=== PATIENT | male | born 1960 | race Caucasian/White ===

== ENCOUNTER 2021-11-03 09:44 | Outpatient (REF) | payer MEDICARE, MEDICAID, SELFPAY ==
[2021-11-03 10:06] LABS: MANUAL DIFF FLAG NO
[2021-11-03 10:22] LABS: Basophils Percent Auto 0.3 % (0-2); Eos%MD 3.7 %; Eosinophils Absolute Auto 0.4 X10*3/uL (0.0-0.4); Eosinophils Percent Auto 4.3 % (0-4); Hemoglobin 13.8 g/dl (14.0-18.0); Imm Gran Abs Auto 0.04 X10*3/uL (0.00-0.03); Imm Gran Pct Auto 0.4 % (0.0-0.4); Lymphocytes Absolute Auto 1.1 X10*3/uL (1.2-4.9); Lymphocytes Percent Auto 11.4 % (20-40); Mean Corpuscular HGB Conc 33.7 g/dl (31.0-36.0); Mean Corpuscular Hemoglobin 27.2 pg (27.0-33.0); Mean Corpuscular Volume 80.9 fL (80.0-98.0); Mean Platelet Volume 9.6 fL (9.4-12.4); Monocytes Absolute Auto 0.7 X10*3/uL (0.1-1.2); Monocytes Percent Auto 7.7 % (2-11); Neutrophils Absolute Auto 7.2 x10*3/uL (2.0-8.3); Neutrophils Percent Auto 75.9 % (45-73); Platelet Count 207 X10*3/uL (160-400); Red Blood Count 5.07 X10*6/uL (4.60-5.80); Red Cell Distribution Width 14.1 % (11.0-16.0); WBCANC 9.4 X10*3/uL; White Blood Count 9.5 X10*3/uL (4.8-10.8)
[2021-11-03 10:42] LABS: Alanine Aminotransferase 26 U/L (0-40); Albumin Level 4.4 g/dL (3.5-5.0); Alkaline Phosphatase 63 U/L (39-117); Anion Gap 13 (12-20); Aspartate Amino Transferase 21 U/L (5-37); Bilirubin Direct 0.2 mg/dL (0.0-0.5); Bilirubin Total 0.5 mg/dL (0.0-1.0); Blood Urea Nitrogen 13 mg/dL (9-16); Calcium 9.7 mg/dL (8.4-10.2); Carbon Dioxide 24 mmol/L (22-29); Chloride 107 mmol/L (96-108); Estimated Glomerular Filt Rate > 60; Glucose Random 114 mg/dL (60-115); Potassium 3.8 mmol/L (3.3-5.1); Sodium 140 mmol/L (135-145); Total Protein 7.1 g/dL (6.5-8.0)
[2021-11-03 11:15] LABS: Erythrocyte Sedimentation Rate 2 MM/HR (0-15)
== END 2021-11-03 09:45 | disposition home or self-care (01) ==
LOC: HO.LAB 09:44
PROVIDERS: PCP Internal Medicine; Visit Provider Internal Medicine
DX: K52.81 Eosinophilic gastritis or gastroenteritis (principal)
CPT/HCPCS: 36415; 80048; 80076; 85025; 85652; 86140

== ENCOUNTER 2022-10-13 11:05 | Outpatient (REF) | payer OTHER, SELFPAY ==
--- NOTE | ~2022-10-13 | XR_ITS ---
EXAMINATION: XR LUMBOSACRAL SPINE WITH OBLIQUES CLINICAL INFORMATION: M54.40 - Lumbago with sciatica, unspecified side COMPARISON: CT abdomen and pelvis 08/07/2017 TECHNIQUE: Lumbar spine is imaged in 4 views: AP, lateral, lateral flexion, lateral extension. FINDINGS: There is normal lumbar segmentation with 5 nonrib-bearing lumbar vertebrae of normal height and normal lumbar lordosis. No vertebral compression. Postsurgical changes are again seen with bilateral rodding L3-L4 and disc spacer. The hardware appears intact. There is no hardware failure or osteolysis or destructive process. There are prominent degenerative disc changes at L5-S1 with disc narrowing and endplate sclerosis and bridging anterior osteophyte. Prior healed spondylolysis is noted on CT. There is mild disc narrowing at L4-L5. There is a fixed grade 1 spondylolisthesis at L5-S1, unchanged from flexion to extension. Other levels show no spondylolisthesis or retrolisthesis. XR/XR lumbar spine 4V min IMPRESSION: -Status post L3-L4 fusion. Hardware intact. No osteolysis or destructive process. -Chronic degenerative disc changes L5-S1. -Grade 1 spondylolisthesis L5-S1, unchanged from flexion to extension.
== END 2022-10-13 11:06 | disposition home or self-care (01) ==
LOC: HO.HOSX 11:05
PROVIDERS: PCP Internal Medicine; Visit Provider Physician Assistant
DX: M54.40 Lumbago with sciatica, unspecified side (principal)
CPT/HCPCS: 72110; 99212; Q3014

== ENCOUNTER 2022-11-17 07:26 | Day surgery (SDC) | payer OTHER, SELFPAY ==
--- NOTE | 2022-11-07 | ECG_ITS ---
Test Reason : preop Blood Pressure : / mmHG Vent. Rate : 054 BPM Atrial Rate : 054 BPM P-R Int : 188 ms QRS Dur : 090 ms QT Int : 400 ms P-R-T Axes : 032 -09 022 degrees QTc Int : 379 ms Sinus bradycardia Otherwise normal ECG When compared with ECG of 02-AUG-2015 13:01, No significant change was found Referred By: Amanda Mohr Electronically Signed By:YIN HARLEY MD
[2022-11-07 14:03] VITALS: BP 185/84; PULSE 58; RESP 16; O2SAT 98; BMI 34.3
[2022-11-17] VITALS (9 sets, daily range): BP systolic 104–169; BP diastolic 58–78; PULSE 55–77; RESP 15–20; TEMP 36.4–36.6; O2SAT 95–99
--- NOTE | ~2022-11-17 | FL_ITS ---
EXAMINATION: XR FLUOROSCOPY WITH IMAGES CLINICAL INFORMATION: L2-L3 laminotomy. COMPARISON: None available. TECHNIQUE: Fluoroscopy Supervised By: Dr. Wilkinson. Fluoroscopy Time: 0.0 minutes. Cumulative Dose: 4.77 mGy. DAP: 1.0 Gycm2. Images: 2. FINDINGS: Obtained revealing bilateral pedicular screws at L4 and L3 vertebrae and interconnecting haydee for fusion. There is grade 1 anterolisthesis L5 over S1 with degenerative disc changes L5-S1 disc level. FL/FL guidance in OR IMPRESSION: 1. Fluoroscopy guidance was provided to Dr. Wilkinson during surgery for L3 and L4 fusion. 2. Grade 1 anterolisthesis L5 over S1 with degenerative disc changes at L5-S1 disc level.
[2022-11-17] MEDS: methocarbamoL 750 MG TABLET PO (08:16)
[2022-11-17] MEDS: Gabapentin 300 MG CAPSULE PO (08:16)
[2022-11-17] MEDS: Lactated Ringers 1,000 ML 50 ML IVCONT (08:33)
--- NOTE | 2022-11-17 09:30 | P.CONAN_ITS ---
Documented by User: Amanda Mohr NP 11/15/22 15:00 HPI - Anesthesia Eval Consult details Narrative: 62yo M for L 2-3 Laminotmy 11/17/22 PMF Active Problems Active Problems: All Active Problems (Updated 11/04/22 @ 11:17 by Shannan Mariscal, RN) Back pain of lumbar region with sciatica (Acute) Past Medical History Medical History GERD (gastroesophageal reflux disease) HTN (hypertension) Left shoulder pain Low back pain Rheumatoid arthritis Seasonal allergies Family History Family history of problems with anesthesia: No Surgical History Surgical History History of back surgery History of total bilateral knee replacement (TKR) Hx of colonoscopy S/P lumbar fusion History of Problems with Anesthesia: No Social History Social History (Updated 11/04/22 @ 11:18 by Shannan Mariscal RN) Household Members: Spouse Housing: House Are you a primary acute care registered nurse to a significant other at home: No Do you presently have visiting nurse or other home services: No Patient Tobacco Use Status: Never used Tobacco Use of substances other than those prescribed or required for medical reasons: No Have you been hit, kicked, punched, or otherwise hurt by someone within the past year? If so, by whom?: No Are you DNR?: No Advance Directives: No Advance Directives Information Provided: Yes Advance Directives on File: No Recently lost weight without trying: No Nutrition Risks: No Nutritional Risk Narrative Narrative: No recent illness No CP/SOB within limits of pain. Minimal physical activity Meds Allergies Allergy/AdvReac Type Severity Reaction Status Date / Time No Known Allergies Allergy Verified 11/04/22 11:14 [No Known Allergies*] Home Medications Medication Instructions Recorded Confirmed Last Taken Type amlodipine 5 mg tablet 5 mg PO BID 11/04/22 11/04/22 11/17/22 05:30 History cholecalciferol (vitamin D3) 50 50 mcg PO DAILY 11/04/22 11/04/22 11/17/22 05:30 History mcg (2,000 unit) capsule (Vitamin D3) fluticasone propionate 50 1 spray intranasal BID 11/04/22 11/04/22 Unknown History mcg/actuation nasal spray,suspension folic acid 1 mg tablet 1 mg PO DAILY 11/04/22 11/04/22 11/17/22 05:30 History hydroxychloroquine 200 mg tablet 400 mg PO DAILY 11/04/22 11/04/22 11/17/22 05:30 History lisinopril 20 mg tablet 20 mg PO DAILY 11/04/22 11/04/22 11/17/22 05:30 History methotrexate sodium 2.5 mg tablet 20 mg PO .QMONDAY 11/04/22 11/07/22 11/07/22 History nabumetone 750 mg tablet 750 mg PO BID 11/04/22 11/04/22 11/10/22 History omeprazole 40 mg capsule,delayed 40 mg PO DAILY 11/04/22 11/04/22 11/17/22 05:30 History release Exam Exam Date and Time: November 07, 2022 1416 Height,Weight and Vital Signs: Height 5 ft 5 in Weight 93.44 kg Last Vital Signs Pulse 58 11/07/22 14:03 Resp 16 11/07/22 14:03 BP 185/84 H 11/07/22 14:03 Pulse Ox 98 11/07/22 14:03 O2 Del Method Room Air 11/07/22 14:03 Pertinent Lab Results Pertinent Lab Results: CBC, BMP, A1C 09/2022 at outside facility WNL Airway Mallampati Class: I TM Dist: >3cm Neck ROM: Full Loose/Missing/Broken Teeth: Yes (Right lower molar with missing cap) Heart: RRR Lungs: CTAB Assessment and Plan Final Anesthetic Review Family History of Problems with Anesthesia: No History of Problems with Anesthesia: No Documented by User: Linh Fuentes DO 11/17/22 10:35 [facility] Past Medical History Medical History GERD (gastroesophageal reflux disease) HTN (hypertension) Left shoulder pain Low back pain Rheumatoid arthritis Seasonal allergies Functional capacity: independent ambulation Surgical History Surgical History History of back surgery History of total bilateral knee replacement (TKR) Hx of colonoscopy S/P lumbar fusion Social History Social History (Updated 11/04/22 @ 11:18 by Shannan Mariscal RN) Household Members: Spouse Housing: House Are you a primary acute care registered nurse to a significant other at home: No Do you presently have visiting nurse or other home services: No Patient Tobacco Use Status: Never used Tobacco Use of substances other than those prescribed or required for medical reasons: No Have you been hit, kicked, punched, or otherwise hurt by someone within the past year? If so, by whom?: No Are you DNR?: No Advance Directives: No Advance Directives Information Provided: Yes Advance Directives on File: No Recently lost weight without trying: No Nutrition Risks: No Nutritional Risk Meds Allergies Allergy/AdvReac Type Severity Reaction Status Date / Time No Known Allergies Allergy Verified 11/04/22 11:14 [No Known Allergies*] Home Medications Medication Instructions Recorded Confirmed Last Taken Type amlodipine 5 mg tablet 5 mg PO BID 11/04/22 11/04/22 11/17/22 05:30 History cholecalciferol (vitamin D3) 50 50 mcg PO DAILY 11/04/22 11/04/22 11/17/22 05:30 History mcg (2,000 unit) capsule (Vitamin D3) fluticasone propionate 50 1 spray intranasal BID 11/04/22 11/04/22 Unknown H istory mcg/actuation nasal spray,suspension folic acid 1 mg tablet 1 mg PO DAILY 11/04/22 11/04/22 11/17/22 05:30 History hydroxychloroquine 200 mg tablet 400 mg PO DAILY 11/04/22 11/04/22 11/17/22 05:30 History lisinopril 20 mg tablet 20 mg PO DAILY 11/04/22 11/04/22 11/17/22 05:30 History methotrexate sodium 2.5 mg tablet 20 mg PO .QMONDAY 11/04/22 11/07/22 11/07/22 History nabumetone 750 mg tablet 750 mg PO BID 11/04/22 11/04/22 11/10/22 History omeprazole 40 mg capsule,delayed 40 mg PO DAILY 11/04/22 11/04/22 11/17/22 05:30 History release Exam Exam Date and Time: November 17, 2022 0930 Height,Weight and Vital Signs: Height 5 ft 5 in Weight 93.44 kg Last Vital Signs Pulse 58 11/07/22 14:03 Resp 16 11/07/22 14:03 BP 185/84 H 11/07/22 14:03 Pulse Ox 98 11/07/22 14:03 O2 Del Method Room Air 11/07/22 14:03 Height 5 ft 5 in Weight 93.44 kg Vital Signs Pulse Rate 58 11/07/22 14:03 Respiratory Rate 16 11/07/22 14:03 Blood Pressure 185/84 H 11/07/22 14:03 Pulse Oximetry 98 11/07/22 14:03 Oxygen Delivery Method Room Air 11/07/22 14:03 Temperature 97.7 F 11/17/22 08:02 Pulse Rate 55 11/17/22 08:02 Respiratory Rate 15 11/17/22 08:02 Blood Pressure 169/70 H 11/17/22 08:02 Pulse Oximetry 96 11/17/22 08:02 Oxygen Delivery Method Room Air 11/17/22 08:02 Airway Heart: S1S2 Lungs: CTAB Assessment and Plan Assessment Anesthesia Assessment: Anesthesia Plan Discussed Final Anesthetic Review ASA Class: II Final Preanesthetic Review: No Changes in Pt Med Stat, Meds/Allgs Chart Reviewed, Consent Obtained/Reviewed and Anes Risks/Benef Reviewed Patient Risk: Low Procedure Risk: Low Anesthetic Plan Anesthetic Plan: GA and Agree w/ Assess. and Plan Disposition: Standard PACU
--- NOTE | 2022-11-17 10:57 | W.PM.OPN ---
Operative Note Operative Note Date of Service: 11/17/22 Narrative: Preoperative Diagnosis: L2-3 spinal stenosis Operation: L2-3 Laminotomy, Partial facetectomy and foraminotomy with use of microscope Consent Informed Consent was obtained for this operation. I have explained the nature, purpose and benefits of the operation. I have discussed the risks and benefit of the operation including possible complications or adverse events with patient/family. Alternative(s) were discussed with the patient with their relative benefits and risks as well as the consequences of not accepting the operation were included in obtaining consent. Surgeon: JIA LAMAS MD, PHD Procedure Assisted By: Phu Hoover Pac] Description of Procedure patient is suffering from back pain and neurogenic claudication. MRI shows stenosis at L2-3 but also bilateral L5 foraminal stenosis. In attempt to avoid fusion we decided to offer him an L2-3 midline sparing decompression in the hope that this level is responsible for his symptoms. The patient was offered a decompression. The procedure complications were explained. The patient was consented. The patient was brought to the operating room and endotracheally intubated. The patient was turned in prone position on the David frame. Prep and drape was done followed by timeout. Physician cardiology physician assistant provided access. A mid lumbar incision was made followed by release of the paravertebral muscle on the left side to expose the L2-3 lamina and facet joints. An intraoperative x-ray was obtained to confirm the correct level. The microscope was brought in. I took over the procedure. The high-speed drill was used to do a left L2-3 laminotomy until flavum ligament was reached. a 2. Kerrison was used to expand the laminotomy near flush to the pedicles and to include a partial facetectomy. The flavum ligament was opened and resected with a 3. Kerrison to decompress the underlying thecal sac. Then the left lateral recess was decompressed with a 2. Kerrison. The patient was turned contralaterally. The spinous process was undercut and this way I was able to reach the contralateral side and to decompress the lateral recess on the right side with a 2. And 3 Kerrison. An excellent decompression was obtained. Hemostasis was done.The microscope was removed. The physician cardiology physician assistant close the incision in 2 layers. Steri-Strips were used to approximate incision. An OpSite with Tegaderm was used to cover the incision. All sponge needle counts were correct. Patient was extubated and transported in stable is to recovery room. Anesthesia: General Estimated Blood Loss (ml): 20 ml Complications: None Duration of Surgery: Under 60 Minutes Postoperative Plan: Discharge to home
--- NOTE | 2022-11-17 11:06 | PM.DS ---
DS: Providers Provider Date of Service: 11/17/22 Date of discharge: 11/17/22 Primary care physician: Cristhian Baker MD Admitting clinician: Ovidio Wilkinson DS: Diagnosis Discharge Diagnosis (1) Lumbar stenosis: Status: Acute DS: Summary Time Spent with Patient Time attestation: Total time managing care of this patient today ____ minutes. Discharge coordination time: Less than 30 minutes Quality: Safe Use of Opioids Does Pt have an Active Cancer Diagnosis on the Problem List?: No Quality: Stroke Does the patient have a stroke diagnosis?: No Physical Exam Vital Signs: Vital Signs: Last Vital Signs Temp 97.7 F 11/17/22 08:02 Pulse 55 11/17/22 08:02 Resp 15 11/17/22 08:02 BP 169/70 H 11/17/22 08:02 Pulse Ox 96 11/17/22 08:02 O2 Del Method Room Air 11/17/22 08:02 BMI result Body Mass Index 34.3 Discharge Plan Discharge Patient Disposition: Home, Self-Care Referrals: Cristhian Baker MD [Primary Care Provider] - 1 Week Discharge Medications: New oxycodone 5 mg tablet 5 mg PO Q4H PRN (Reason: pain) Qty: 30 0RF Rx Instructions: Partial Fill upon patient request. docusate sodium [Colace] 100 mg capsule 100 mg PO BID Qty: 20 0RF Continued nabumetone 750 mg tablet 750 mg PO BID lisinopril 20 mg tablet 20 mg PO DAILY amlodipine 5 mg tablet 5 mg PO BID omeprazole 40 mg capsule,delayed release(DR/EC) 40 mg PO DAILY folic acid 1 mg tablet 1 mg PO DAILY hydroxychloroquine 200 mg tablet 400 mg PO DAILY fluticasone propionate 50 mcg/actuation spray,suspension 1 spray intranasal BID cholecalciferol (vitamin D3) [Vitamin D3] 50 mcg (2,000 unit) Capsule 50 mcg PO DAILY Held methotrexate sodium 2.5 mg tablet 20 mg PO .QMONDAY Hold Instructions: Resume on 11/24/22. may resume once wound healed up Discharge Orders: Discharge Order (Routine); Ordered 11/17/22 Ordered By: Phu Hoover Diet: Advance to usual diet Activity on Discharge: As tolerated Activity Restrictions/Additional Instructions: YOU CAN RESUME METHOTREXATE ONCE YOUR WOUND IS HEALED UP After your spinal surgery we ask you to observe the following restrictions/guidelines: Activity: It is normal to feel some discomfort as you increase your activity, but that will improve with time. We ask you avoid heavy lifting or acitivities that cause pain. As a general rule, 8lbs is a safe limit for lifting right after surgery. Walk as much as you feel comfortable but not to exhaustion. You will feel extra tired the first few days after surgery. Stay well hydrated. It is OK to walk up and down stairs You may return to driving when you are off narcotics (such as vicodin, oxycodone, dilaudid, etc), and you are back to normal functional capacity. If you have any concerns please check with office before driving. Return to work is specific to each patient and each surgery, so please speak with your doctor/PA at first follow up. Please bring paperwork such as FMLA at that time if you need it filled out. Medications: We will give you a short supply of narcotics after surgery (usually one weeks worth). If you need more please call the office but do not use more than prescribed. You will need to give our office 48 hours notice if you need narcotics refilled and we do not fill narcotics on weekends or evenings. If you are on a narcotic, it is a good idea to take a stool softener such as colace or senna to avoid constipation If you take blood thinner such as aspirin, Plavix, Coumadin, Effient, Eliquis etc for conditions such as Afib, DVT, Pulmonary embolus, coronary disease, stents etc please speak with your surgeon about specific details as to when you can resume these medications. You can resume NSAIDs on post op day 1 (eg: Motrin, Naproxen, etc). Follow up: Please call the office, , after surgery to arrange a 3 week follow up for wound check. Wound Care: You may remove your dressing on the first day after surgery. You may leave open to air. Please do not remove the steri strips underneath. they will fall off on their own in one week. IT IS NORMAL FOR THE WOUND TO OOZE OR BE BLOODY FOR A FEW DAYS AFTER SURGERY. IF THIS HAPPENS JUST PLACE NEW DRESSING OVER IT TO AVOID STAINING CLOTHES. You may shower on post op day # 1 We ask that you do not let the water soak the wound. If it does get wet, just towel dry lightly. Please do not scrub your incision or place any type of chemical/ointment on the wound. No tub baths, pools or jacuzzis for one month. If you have any leaking or redness from your wound, or fevers, please call office
== END 2022-11-17 12:45 | disposition home or self-care (01) ==
PROVIDERS: PCP Internal Medicine; Visit Provider Neurological Surgery
PROC: (CPT 63047; principal; 2022-11-17 09:20)
DX: M48.061 Spinal stenosis, lumbar region without neurogenic claudication (principal); M54.40 Lumbago with sciatica, unspecified side; I10 Essential (primary) hypertension; M06.9 Rheumatoid arthritis, unspecified; K21.9 Gastro-esophageal reflux disease without esophagitis; Z79.620 Long term (current) use of immunosuppressive biologic; Z79.899 Other long term (current) drug therapy; Z98.1 Arthrodesis status
CPT/HCPCS: 63047; 93005; J0131; J0690; J1100; J1885; J2250; J2370; J2405; J3010

== ENCOUNTER → 2022-12-09 13:50 | Outpatient (BNVA) | payer OTHER, SELFPAY | PROVIDERS: PCP Internal Medicine; Visit Provider Physician Assistant | DX: M48.061 Spinal stenosis, lumbar region without neurogenic claudication (principal) | CPT/HCPCS: 99212 ==

== ENCOUNTER 2023-03-27 06:03 | Inpatient (IN) | payer OTHER, SELFPAY ==
[2023-03-08 12:12] VITALS: BP 157/77; PULSE 60; RESP 20; O2SAT 97; BMI 34.2
--- NOTE | 2023-03-08 12:25 | P.CONAN_ITS ---
Documented by User: Amanda Mohr NP 03/15/23 14:18 HPI - Anesthesia Eval Consult details Narrative: 62yo M for L4-5, L5-S1 Anterior Lumbar Interbody Fusion, 03/27/23 s/p L 2-3 Laminotmy 11/17/22 with GA-ETT 7.5, no issue per patient Also s/p shoulder surgery 01/2023 at outside facility without issue PCP preop eval 01/2023. Cleared under any type of anesthesia. Methotrexate for RA. Instructions to hold 1 week prior. No recent illness No CP/SOB PMFSH Active Problems Active Problems: All Active Problems (Updated 03/08/23 @ 12:05 by Whitney Emerson, MARYCARMEN) Back pain of lumbar region with sciatica (Acute) Lumbar stenosis (Acute) Past Medical History Medical History (Updated 03/08/23 @ 12:05 by Whitney Emerson RN) Renal calculi Rheumatoid arthritis Low back pain Left shoulder pain Seasonal allergies GERD (gastroesophageal reflux disease) HTN (hypertension) Family History Family history of problems with anesthesia: No Surgical History Surgical History (Updated 03/08/23 @ 12:18 by Whitney Emerson RN) Hx of esophagogastroduodenoscopy Hx of repair of left rotator cuff Hx of cystoscopy History of back surgery History of back surgery Hx of colonoscopy History of total bilateral knee replacement (TKR) S/P lumbar fusion History of Problems with Anesthesia: No Social History Social History (Updated 11/04/22 @ 11:18 by Shannan Mariscal RN) Household Members: Spouse Housing: House Are you a primary customer care coordinator to a significant other at home: No Do you presently have visiting nurse or other home services: No Patient Tobacco Use Status: Never used Tobacco Use of substances other than those prescribed or required for medical reasons: No Have you been hit, kicked, punched, or otherwise hurt by someone within the past year? If so, by whom?: No Are you DNR?: No Advance Directives: No Advance Directives Information Provided: Yes (brochure given) Advance Directives on File: No Recently lost weight without trying: No Nutrition Risks: No Nutritional Risk Poor oral hygiene: No (one chipped tooth bottom right side) Meds Allergies Allergy/AdvReac Type Severity Reaction Status Date / Time No Known Allergies Allergy Verified 11/04/22 11:14 [No Known Allergies*] Home Medications Medication Instructions Recorded Confirmed Last Taken Type amlodipine 5 mg tablet 5 mg PO QAM 11/04/22 03/08/23 03/27/23 History cholecalciferol (vitamin D3) 50 50 mcg PO DAILY 11/04/22 03/08/23 03/26/23 History mcg (2,000 unit) capsule (Vitamin D3) folic acid 1 mg tablet 1 mg PO DAILY 11/04/22 03/08/23 03/27/23 History hydroxychloroquine 200 mg tablet 400 mg PO QAM 11/04/22 03/08/23 03/26/23 History lisinopril 20 mg tablet 20 mg PO QAM 11/04/22 03/08/23 03/26/23 History methotrexate sodium 2.5 mg tablet 20 mg PO .QMONDAY 11/04/22 03/08/23 03/13/23 History omeprazole 40 mg capsule,delayed 40 mg PO QAM 11/04/22 03/08/23 03/27/23 History release Exam Exam Date and Time: March 08, 2023 1225 Height,Weight and Vital Signs: Height 5 ft 4 in Weight 90.265 kg Last Vital Signs Pulse 60 03/08/23 12:12 Resp 20 03/08/23 12:12 BP 157/77 H 03/08/23 12:12 Pulse Ox 97 03/08/23 12:12 O2 Del Method Room Air 03/08/23 12:12 Pertinent Lab Results Pertinent Lab Results: 01/09/23 BMP WNL Airway Mallampati Class: I TM Dist: >3cm Neck ROM: Full Loose/Missing/Broken Teeth: Yes (Right lower molar with missing cap) Heart: S1S2 Lungs: CTAB Assessment and Plan Assessment Anesthesia Assessment: Anesthesia Plan Discussed and PAT Visit Final Anesthetic Review Family History of Problems with Anesthesia: No History of Problems with Anesthesia: No Documented by User: Juanita Victoria MD 03/27/23 07:22 PMFSH Past Medical History Medical History (Updated 03/08/23 @ 12:05 by Whitney Emerosn RN) Renal calculi Rheumatoid arthritis Low back pain Left shoulder pain Seasonal allergies GERD (gastroesophageal reflux disease) HTN (hypertension) Surgical History Surgical History (Updated 03/08/23 @ 12:18 by Whitney Emerson, RN) Hx of esophagogastroduodenoscopy Hx of repair of left rotator cuff Hx of cystoscopy History of back surgery History of back surgery Hx of colonoscopy History of total bilateral knee replacement (TKR) S/P lumbar fusion Social History Social History (Updated 11/04/22 @ 11:18 by Shannan Mariscal RN) Household Members: Spouse Housing: House Are you a primary customer care coordinator to a significant other at home: No Do you presently have visiting nurse or other home services: No Patient Tobacco Use Status: Never used Tobacco Use of substances other than those prescribed or required for medical reasons: No Have you been hit, kicked, punched, or otherwise hurt by someone within the past year? If so, by whom?: No Are you DNR?: No Advance Directives: No Advance Directives Information Provided: Yes (brochure given) Advance Directives on File: No Recently lost weight without trying: No Nutrition Risks: No Nutritional Risk Poor oral hygiene: No (one chipped tooth bottom right side) Meds Allergies Allergy/AdvReac Type Severity Reaction Status Date / Time No Known Allergies Allergy Verified 11/04/22 11:14 [No Known Allergies*] Home Medications Medication Instructions Recorded Confirmed Last Taken Type amlodipine 5 mg tablet 5 mg PO QAM 11/04/22 03/08/23 03/27/23 History cholecalciferol (vitamin D3) 50 50 mcg PO DAILY 11/04/22 03/08/23 03/26/23 History mcg (2,000 unit) capsule (Vitamin D3) folic acid 1 mg tablet 1 mg PO DAILY 11/04/22 03/08/23 03/27/23 History hydroxychloroquine 200 mg tablet 400 mg PO QAM 11/04/22 03/08/23 03/26/23 History lisinopril 20 mg tablet 20 mg PO QAM 11/04/22 03/08/23 03/26/23 History methotrexate sodium 2.5 mg tablet 20 mg PO .QMONDAY 11/04/22 03/08/23 03/13/23 History omeprazole 40 mg capsule,delayed 40 mg PO QAM 11/04/22 03/08/23 03/27/23 History release Exam Airway Mallampati Class: II Assessment and Plan Assessment Anesthesia Assessment: Chart Reviewed Final Anesthetic Review NPO: Yes ASA Class: II Final Preanesthetic Review: No Changes in Pt Med Stat, Meds/Allgs Chart Reviewed, Consent Obtained/Reviewed and Anes Risks/Benef Reviewed Patient Risk: Intermediate Procedure Risk: Intermediate Anesthetic Plan Anesthetic Plan: GA Disposition: Standard PACU
[2023-03-27] VITALS (14 sets, daily range): BP systolic 104–182; BP diastolic 50–78; PULSE 63–74; RESP 13–20; TEMP 36.1–36.8; O2SAT 94–98; BMI 34.2; BMI 35.6
--- NOTE | ~2023-03-27 | FL_ITS ---
EXAMINATION: XR FL WITH IMAGES CLINICAL INFORMATION: L4-L5 lumbar interbody fusion. COMPARISON: None available. TECHNIQUE: Fluoroscopy guidance with images in OR provided to Dr. Wilkinson. DOSE: 82.4 mGy 22.4 GycM2 FLUOROSCOPY TIME: 1.0 minute. IMAGES: 2 Images. FINDINGS: There is new interbody fusion hardware at the L4-L5 and L5-S1 disc spaces. There is posterior fusion hardware with transpedicular screws and rods in the L4 vertebral body and disc inter-spacer at L3-L4. FL/FL guidance in OR IMPRESSION: Fluoroscopy guidance for lumbar interbody fusion.
--- NOTE | ~2023-03-27 | XR_ITS ---
EXAMINATION: XR PELVIS CLINICAL INFORMATION: Anterior lumbar interbody fusion Post procedure COMPARISON: Lumbar spine 10/13/2022 TECHNIQUE: AP view of the pelvis. FINDINGS: No fracture. Hip joint spaces are maintained. Alignment is anatomic. Sacroiliac joints and pubic symphysis are normal. No abnormal soft tissue calcifications. Partial visualization of lumbar fusion with bilateral rodding and intrapedicular screws at L3-L4. Disc spacer seen at L4-L5 and L5-S1. XR/XR pelvis 1-2V IMPRESSION: 1. Postsurgical changes of the lumbar spine. 2. No acute abnormality of the pelvis or hips.
[2023-03-27] MEDS: methocarbamoL 750 MG TABLET PO (06:34)
[2023-03-27] MEDS: Gabapentin 300 MG CAPSULE PO (06:34)
[2023-03-27] MEDS: Lactated Ringers 1,000 ML 100 ML IVCONT (06:48)
--- NOTE | 2023-03-27 06:52 | PHA.MEDREC ---
Pharmacy Consult ? Medication Reconciliation Pharmacy has completed the medication reconciliation. Reviewed med rec done by nursing
--- NOTE | 2023-03-27 07:05 | MHC.SHP ---
Pre-Procedural Eval Section A Date of Service: 03/27/23 The patient is an INPATIENT: No Changes since office visit: No Cold of Flu in the past 2 weeks, No New Medical Problems, No Changes in Medication and No Patient answered all questions The History & Physical has been completed within 30 days and I have reviewed it.: Yes Section B Chief Complaint: s/p L4-5, L5-S1 ALIF/OLIF Allergies: Allergies Allergy/AdvReac Type Severity Reaction Status Date / Time No Known Allergies Allergy Verified 11/04/22 11:14 [No Known Allergies*] Review of Systems Sugical H&P ROS: Negative: Constitution, Cardiovascular, Respiratory, Neurological, Psychiatric, Hem-Onc, Allergic/Immunologic, Gastrointestinal, Genitourinary, Musculoskeletal, Integumentary, Endocrine and Eyes/Ears/Nose/Throat Exam Surgical H&P Exam: Not Evaluated: HEENT, Not Evaluated: Heart, Not Evaluated: Lungs, Not Evaluated: Extremities, Not Evaluated: Abdomen, Not Evaluated: Skin and Not Evaluated: Neurological Plan Diagnosis/Plan: Unchanged I have reviewed the history and physical and performed a pertinent physical examination on my patient. No changes have occurred unless specified. L4-S1 ALIF/OLIF Time Spent With Patient Time: Total time managing care of this patient today __10__ minutes.
--- NOTE | 2023-03-27 11:28 | W.PM.OPN ---
Operative Note Operative Note Date of Service: 03/27/23 Narrative: Preoperative Diagnosis: 1.) L5-S1 degenerative disc disease with bilateral foraminal stenosis causing bilateral radiculopathy; previous L3-4 fusion Procedure: Anterior lumbar interbody fusion L4-5 and L5-S1 with discectomy, arthrodesis and implantation cages; anterior instrumentation L4-S1; allograft Indication for Surgery Lumbar degenerative disc disease Consent Informed Consent was obtained for this operation. I have explained the nature, purpose and benefits of the operation. I have discussed the risks and benefit of the operation including possible complications or adverse events with patient/family. Alternative(s) were discussed with the patient with their relative benefits and risks as well as the consequences of not accepting the operation were included in obtaining consent. Surgeon: JIA LAMAS MD, PHD Procedure Assisted By: DAMIAN LORENZO MD and Phu Castillo Description of Procedure This 62-year-old male had a previous L3-4 fusion done in another institution. We initially performed an L2-3 laminotomy in the hope that is bilateral radiculopathy was coming from this level. Unfortunately, this procedure did not help. Therefore I offered him a decompression of the bilateral L5 nerve roots through an anterior lumbar interbody fusion. The side effect of having another fusion at L5-S1 is that the L4-5 level will fail if we leave it alone due to the previous L3-4 fusion. Therefore the L4-5 will also be fused. The procedure complications were explained. The patient was consented. The patient was brought to the operating room and endotracheally intubated. The patient was put in a supine position on the operative table. Prep and drape was done followed by timeout. Dr. Lorenzo, co-surgeon, provided the access to the L4-5 and L5-S1 disc spaces through an anterior, retroperitoneal approach. He was assisted by Phu WEST. He will dictate the approach in a separate operative note. When the L4-5 and L5-S1 disc spaces were exposed I took over the procedure. I started with the L4-5 disc space. An annulotomy was done followed by a partial discectomy. Sequential trial implants were inserted and advanced towards the posterior wall of the disc space. I completed the discectomy and prepare the endplates. Then a [id number] mm and 6 degree lordosis 4 web cage filled with allograft was inserted into the disc space. Then we turned the attention to the L5-S1 disc space. Dr. Lorenzo provided manual traction. A large anterior osteophyte was removed with an osteotome to obtain access to the L5-S1 disc space. An elevator Johnson was used to enter the L5-S1 disc space to warts the posterior annulus. A complete diskectomy was done. Sequential trial implants were inserted and advanced towards the posterior wall of the disc space. The remainder of the disc was removed. The endplates were prepared after which a 27 x 40 x 10 mm and 6 degree lordosis 4 web cage filled with allograft was inserted into the disc space. The anterior cages were fixated with a total of 6 screws for anterior instrumentation. Final x-rays in AP and lateral projection showed good position of the interbody devices and anterior instrumentation. The retractor was removed and hemostasis was done by Dr. Cline who closed the incision. All sponge and needle counts were correct.Patient was extubated and transported in stable condition to recovery room. This procedure was done with the aid of a physican patient clerical assistant as a qualified resident was not available. Anesthesia: General Estimated Blood Loss (ml): 80 mL Duration of Surgery: 2 hours 30 minutes Complications: None Postoperative Plan: Admit to inpatient for observation
[2023-03-27] MEDS: oxyCODONE HCl Immed Release 5 MG TABLET PO (11:47)
[2023-03-27] MEDS: fentaNYL citrate/PF 100 MCG/2 ML VIAL 50 MCG IVPUSH (11:48)
[2023-03-27] MEDS: 0.9 % Sodium Chloride 1,000 ML 75 ML IVCONT (15:10)
[2023-03-27] MEDS: ceFAZolin Sodium/Dextrose,Iso 2 GM/50 ML PIGGYBACK IV ×2 (15:10→19:34)
[2023-03-27] MEDS: HYDROmorphone HCl 1 MG/ML SYRINGE IVPUSH (15:10)
--- NOTE | 2023-03-27 15:50 | MHC.CM.PN ---
PT REPORTS HE LIVES WITH HIS DAUGHTER AND IS INDEPENDENT WITH CARE PT DENIES USE OF DME OR HOME SERVICES PT SAYS HE HAS A HCP NAMING HIS , ELLIE, THE AGENT PCP: FATUMA AVALOS IMM DELIVERED DCP: HOME NO SERVICES VIA PRIVATE TRANSPORT
[2023-03-27] MEDS: oxyCODONE HCl Immed Release 5 MG TABLET 10 MG PO ×2 (15:53→20:10)
[2023-03-27] MEDS: Ketorolac Tromethamine 15 MG/ML VIAL IVPUSH ×2 (16:36→23:41)
[2023-03-27] MEDS: Acetaminophen 1,000 MG/100 ML PIGGYBACK 400 MG IV ×2 (16:36→23:42)
[2023-03-27] MEDS: Docusate Sodium 100 MG CAPSULE PO (20:10)
[2023-03-28] MEDS: ceFAZolin Sodium/Dextrose,Iso 2 GM/50 ML PIGGYBACK IV (02:27)
[2023-03-28 04:00] VITALS: BP 131/72; PULSE 60; RESP 16; TEMP 36.2; O2SAT 95
[2023-03-28] MEDS: Ketorolac Tromethamine 15 MG/ML VIAL IVPUSH ×2 (05:11→11:33)
[2023-03-28] MEDS: Omeprazole 40 MG CAPSULE.DR PO (05:12)
[2023-03-28] MEDS: Acetaminophen 1,000 MG/100 ML PIGGYBACK 400 MG IV ×2 (05:12→11:33)
[2023-03-28 06:52] VITALS: BP 142/74; PULSE 58; RESP 17; TEMP 36.6; O2SAT 97
--- NOTE | 2023-03-28 07:42 | HO.NEUROPN_ITS ---
Neurosurgery Operative Note Date of Service: 03/28/23 Narrative: POD: 1 PROCEDURE: L4-5, L5-1 ALIF PATIENT REPORTS HE IS UP WALKING AROUND IS OTHERWISE DOING WELL. HE FEELS HIS SYMPTOMS ARE MUCH BETTER THAN PRE-OPERATIVELY. HE STILL REPORTS MILD BILATERAL LEG PAIN, WITH GOOD RELIEF WITH PAIN MEDICATION. HE IS VOIDING WELL, TOLERATING DIET, AWAITING PT EVAL. AFEBRILE, VITAL SIGNS STABLE. FULL STRENGTH BILATERAL LE. BACK DRESSINGS HAVE SOME STAINING WITHOUT SIGNS OF HEMATOMA. NO ACTIVE SANGUINEOUS DRAINAGE. AREA IS DRY. PLAN: PATIENT MEETS CRITERIA TO BE MEDICALLY DISCHARGED HOME, PENDING PT EVAL / AGREEMENT. HE WAS SEEN AT BEDSIDE WITH DR. LAMAS. PAIN MEDICATIONS WILL BE S ENT TO PHARMACY ON FILE. ATILIO BREEN PA-C
--- NOTE | 2023-03-28 07:42 | PM.DS ---
DS: Providers Provider Date of Service: 03/28/23 Date of admission: 03/27/23 06:03 Primary care physician: Cristhian Baker MD DS: Summary Time Spent with Patient Time attestation: Total time managing care of this patient today ____ minutes. Discharge coordination time: Less than 30 minutes Quality: Safe Use of Opioids Does Pt have an Active Cancer Diagnosis on the Problem List?: No Quality: Stroke Does the patient have a stroke diagnosis?: No Physical Exam Vital Signs: Vital Signs: Last Vital Signs Temp 97.9 F 03/28/23 06:52 Pulse 58 03/28/23 06:52 Resp 17 03/28/23 06:52 BP 142/74 H 03/28/23 06:52 Pulse Ox 97 03/28/23 06:52 O2 Del Method Room Air 03/28/23 06:52 O2 Flow Rate 2 03/27/23 14:40 BMI result Body Mass Index 35.6 Discharge Plan Discharge Anticipated Discharge Date/Time: 03/28/23 07:52 Patient Disposition: Home, Self-Care Discharge Diagnosis: S/P Lumbar fusion revision Referrals: Cristhian Baker MD [Primary Care Provider] - 1 Week Discharge Medications: New oxycodone 5 mg tablet 5 mg PO Q6H PRN (Reason: severe pain (scale score 7-10)) Qty: 30 0RF Rx Instructions: Partial Fill upon patient request. docusate sodium 100 mg capsule 100 mg PO BID Qty: 20 0RF Continued lisinopril 20 mg tablet 20 mg PO QAM amlodipine 5 mg tablet 5 mg PO QAM hydroxychloroquine 200 mg tablet 400 mg PO QAM Held methotrexate sodium 2.5 mg tablet 20 mg PO .QMONDAY Hold Instructions: Resume on 11/24/22. may resume once wound healed up No Action omeprazole 40 mg capsule,delayed release(DR/EC) 40 mg PO QAM folic acid 1 mg tablet 1 mg PO DAILY cholecalciferol (vitamin D3) [Vitamin D3] 50 mcg (2,000 unit) Capsule 50 mcg PO DAILY Discharge Orders: Discharge Order (Routine); Ordered 03/28/23 Ordered By: Zane Sanches Diet: Advance to usual diet Activity on Discharge: As tolerated Stand Alone Forms: Patient Portal Discharge page Activity Restrictions/Additional Instructions: After your spinal surgery we ask you to observe the following restrictions/guidelines: Activity: With lumbar fusion surgery it is normal to have days in the first couple of weeks where you have increased leg pain. This usually lasts 1-2 days and self resolves with the continuation of medication. Attempt to stay mobile and continue activity as tolerated. It is normal to feel some discomfort as you increase your activity, but that will improve with time. We ask you avoid heavy lifting or activities that cause pain. As a general rule, 8lbs is a safe limit for lifting right after surgery. Walk as much as you feel comfortable but not to exhaustion. You will feel extra tired the first few days after surgery. Stay well hydrated. It is OK to walk up and down stairs You may return to driving when you are off narcotics (such as vicodin, oxycodone, dilaudid, etc), and you are back to normal functional capacity. If you have any concerns please check with office before driving. Return to work is specific to each patient and each surgery, so please speak with your doctor/PA at first follow up. Please bring paperwork such as FMLA at that time if you need it filled out. Medications: It is recommended that you take Tylenol 500 mg every 4 hours for the 1st week postoperatively, alongside ibuprofen 600 mg every 8 hours. We will also be prescribing gabapentin 300 mg to be taken every 8 hours for the 1st month postoperatively. We will give you a short supply of narcotics after surgery (usually one weeks worth). Please use this for breakthrough pain that is refractory to the Tylenol ibuprofen and gabapentin. If you need more please call the office but do not use more than prescribed. You will need to give our office 48 hours notice if you need narcotics refilled and we do not fill narcotics on weekends or evenings. If you are on a narcotic, it is a good idea to take a stool softener such as colace or senna to avoid constipation If you take blood thinner such as aspirin, Plavix, Coumadin, Effient, Eliquis etc for conditions such as Afib, DVT, Pulmonary embolus, coronary disease, stents etc please speak with your surgeon about specific details as to when you can resume these medications. You can resume NSAIDs on post op day 1 (eg: Motrin, Naproxen, etc). Follow up: Please call the office, , after surgery to arrange a 3 week follow up for wound check. Wound Care: You may remove your dressing on the first day after surgery. You may leave open to air. Please do not remove the steri strips underneath. they will fall off on their own in one week. IT IS NORMAL FOR THE WOUND TO OOZE OR BE BLOODY FOR A FEW DAYS AFTER SURGERY. IF THIS HAPPENS JUST PLACE NEW DRESSING OVER IT TO AVOID STAINING CLOTHES. You may shower on post op day # 1 We ask that you do not let the water soak the wound. If it does get wet, just towel dry lightly. Please do not scrub your incision or place any type of chemical/ointment on the wound. No tub baths, pools or jacuzzis for one month. If you have any leaking or redness from your wound, or fevers, please call office Care Plan Goals: Return to activity as tolerated. Health Concerns: none. Plan of Treatment: follow-up in clinic in 2 weeks. Assessment: stable.
[2023-03-28] MEDS: Folic Acid 1 MG TABLET PO (08:47)
[2023-03-28] MEDS: Hydroxychloroquine Sulfate 200 MG TABLET 400 MG PO (08:47)
[2023-03-28] MEDS: lisinopriL 20 MG TABLET PO (08:47)
[2023-03-28] MEDS: amLODIPine Besylate 5 MG TABLET PO (08:47)
[2023-03-28] MEDS: Cholecalciferol (Vitamin D3) 25 MCG TABLET 50 MCG PO (08:47)
[2023-03-28] MEDS: Docusate Sodium 100 MG CAPSULE PO (08:47)
[2023-03-28] MEDS: oxyCODONE HCl Immed Release 5 MG TABLET 10 MG PO (09:28)
--- NOTE | 2023-03-28 09:46 | MHC.CM.PN ---
IMM 03/27/23 Patient discharged to home today self care. He has arranged for a family member to provide transportation home.
--- NOTE | 2023-03-28 11:49 | HO.POSTANES ---
Post Anesthesia Evaluation Post Anesthesia Evaluation Date of Service: 03/28/23 Vital Signs: Vital Signs Temp Pulse Resp BP Pulse Ox O2 Del Method 03/28/23 06:52 97.9 F 58 17 142/74 H 97 Room Air 03/28/23 04:00 97.2 F 60 16 131/72 95 Room Air Anesthesia: General Endotracheal-GETA Mental Status: Awake Pain Control: Satisfactory Nausea/Vomiting: None Hydration: Adequate Anesthesia-Related Issues: No Anes. Related Issues
--- NOTE | 2023-05-01 12:19 | P.OP_ITS ---
Operative Note Operative Note Date of Service: 03/27/23 Narrative: Patient was evaluated by Dr. Wilkinson for chronic lower back pain and radiculopathy and scheduled for ALIF L4-S1. I met with the patient pre- operatively and discussed the access part of the procedure and risks an the patient agreed to proceed. He was brought to the operating room and general anaesthesia was administered without incident. Abdomen was prepped sterily and draped. Timeout was done. 7 cm infra-umbilical incision was done and it was renee down to the anterior rectus sheath. Rectus sheath was opened horizontally and left rectus muscle was mobilized. Left inferior epigastric vessels were protected. SPERMATIC CORD WAS DISSECTED AND PROTECTED and retro-peritoneal plane was developed , Left ureter was visualized and protected. Bookwalter retractor was placed with narrow blades. Dissection was carried at the medial aspect of the the left common iliac vein which was mobilized from the spine and middle sacral vessels were divided, Bipolar electrocautery was used to completely free L5-S1 disc anteriorly. Midline was marked with X-ray imaging. Left common iliac artery was dissected medially, ileolumbar vein was transected between the ties and anterior serfice of the L4-L5 disc was prepaired. Midline w as again marked. Doctor Wilkinson then proceeded with diskectomy and cage fusion at 2 levels..Hemostasis was checked and was excellent. Gelfoam sponge was placed over the disc space. Ureter was intact and there was a good iliac pulse. Incision was injected with diluted Lidocaine/Marcaine mixture and closed by layers using O-Maxone on the fascia and absorbable subcutaneous and subcuticular closure. Exofin glue and steri-strip were applied. EBL: less then 10ml Complication:none
== END 2023-03-28 14:00 | disposition home or self-care (01) | DRG 460 ==
LOC: HO.SSSA 07:07 → HO.S3 11:50
PROVIDERS: Admitting Provider Neurological Surgery; PCP Internal Medicine; Visit Provider Neurological Surgery
PROC: 0SG30A0 Fusion of Lumbosacral Joint with Interbody Fusion Device, Anterior Approach, Anterior Column, Open Approach (ICD-10-PCS; principal; 2023-03-27 07:30)
DX: M48.07 Spinal stenosis, lumbosacral region (principal); M51.17 Intervertebral disc disorders with radiculopathy, lumbosacral region; K21.9 Gastro-esophageal reflux disease without esophagitis; M06.9 Rheumatoid arthritis, unspecified; Z79.631 Long term (current) use of antimetabolite agent; Z79.899 Other long term (current) drug therapy
CPT/HCPCS: 72170; 86850; 86900; 86901; 97161; C1713; J0131; J0690; J1100; J1170; J1885; J2250; J2405; J3010; L8699

== ENCOUNTER → 2023-03-27 06:03 | Outpatient (BNV) | payer OTHER, SELFPAY | PROVIDERS: Admitting Provider Neurological Surgery; PCP Internal Medicine; Visit Provider Neurological Surgery | DX: M48.062 Spinal stenosis, lumbar region with neurogenic claudication (principal); M54.16 Radiculopathy, lumbar region | CPT/HCPCS: 20930; 22558; 22585; 22845; 22853; 99499 ==

== ENCOUNTER 2023-04-18 14:31 | Outpatient (REF) | payer OTHER, SELFPAY | END 2023-04-18 14:32 | disposition home or self-care (01) | LOC: HO.HOSX 14:31 | PROVIDERS: PCP Internal Medicine; Visit Provider Physician Assistant | DX: Z13.89 Encounter for screening for other disorder (principal) ==

== ENCOUNTER 2023-04-18 14:31 | Outpatient (AMB) | payer OTHER, SELFPAY ==
--- NOTE | 2023-04-18 14:34 | HO.SPINEOV ---
Intake Intake Visit Reasons: 1st post op Intake Note: Mr. Steinberg is here today for his 1st post-op visit. 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 He reports he is very satisfied with the surgery and feels much better than she did pre-operatively. He states he is up walking around and completing the majority of his ADLs. He reports that he no longer suffers from his bilateral leg pain radiculopathy down the posterior thighs. He came in today inquiring about what he can do as far as postoperative restrictions go. He stated that he wishes to return to completing his basic surgical aide such as mowing the lawn and taking out the trash. He was encouraged to be extremely judicious regarding these activities, and informed that he should return to activity as tolerated and not completing any activities in which he feels like he may re-injure or even slightly strain his back. We extensively reviewed bending/twisting/lifting restrictions. Full strength 5/5 UE / LE. Mobility is intact. Sensation grossly intact. Patient is able to ambulate well, rises from a seated position without difficulty. Vertical abdominal incision site inferior to umbilicus is closed, well-healing, and without drainage We will follow-up with the patient in 6 weeks for his 2nd postoperative visit. At that time we will get x-rays to review with the patient. Zane Wilkinson MD,PhD [facility] Coding Level of Care Code Global (57085) Diagnoses S/P spinal surgery Z98.890
== END 2023-04-18 14:42 | disposition home or self-care (01) ==
PROVIDERS: PCP Internal Medicine; Visit Provider Physician Assistant
DX: Z98.890 Other specified postprocedural states (principal)
CPT/HCPCS: 99024

== ENCOUNTER 2023-05-30 14:28 | Outpatient (REF) | payer OTHER, SELFPAY ==
--- NOTE | ~2023-05-30 | XR_ITS ---
EXAMINATION: XR CERVICAL SPINE CLINICAL INFORMATION: Postprocedural status. COMPARISON: None available. TECHNIQUE: 4 views of the cervical spine inclusive of flexion and extension. FINDINGS: Advanced multilevel degenerative changes in the cervical spine with loss of disc space height and hypertrophic change most notable at C2-C3, C3-C4, C4-C5, and C5-C6. Shoulder prosthesis partially imaged. Mild retrolisthesis of C4 on C5 and of C5 on C6. XR/XR cervical spine 4V IMPRESSION: Advanced multilevel degenerative changes in the cervical spine.
== END 2023-05-30 14:29 | disposition home or self-care (01) ==
LOC: HO.HOSX 14:28
PROVIDERS: Visit Provider Physician Assistant
DX: Z98.890 Other specified postprocedural states (principal)
CPT/HCPCS: 72050

== ENCOUNTER 2023-05-30 14:34 | Outpatient (AMB) | payer OTHER, SELFPAY ==
--- NOTE | 2023-05-30 14:52 | A.SPINEOV_ITS ---
Intake Intake Visit Reasons: 2nd post op with xrays Allergies No Known Allergies [No Known Allergies*] Allergy (Verified 11/04/22 11:14) Assessment & Plan Assessment & Plan (1) S/P spinal surgery: Code(s): Z98.890 - Other specified postprocedural states Plan Procedure: Anterior lumbar interbody fusion L4-5 and L5-S1 Tomás comes in today for his 2nd postoperative visit. He reports that he continues to have resolution of his bilateral leg pain & radiculopathy down the posterior thighs. He reports essentially returning to normal activity. He has no significant restrictions reported. He when had a series of x-rays completed, which we reviewed during this visit today. They show stable and consistent placement of his posterior instrumentation, with no changes noted from his intraoperative x-rays. We also will be discontinuing his gabapentin, as he is far enough out from surgery to no longer need it. Full strength 5/5 UE / LE. Mobility is intact. Sensation grossly intact. Patient is able to ambulate well, rises from a seated position without difficulty. Vertical abdominal incision site inferior to umbilicus is closed & well healed. No further routine follow-up needed. The patient may follow up on an as-needed basis. Zane Wilkinson MD,PhD [facility] Coding Level of Care Code Global (13957) Diagnoses S/P spinal surgery Z98.890
== END 2023-05-30 15:08 | disposition home or self-care (01) ==
PROVIDERS: PCP Internal Medicine; Visit Provider Physician Assistant
DX: Z98.890 Other specified postprocedural states (principal)
CPT/HCPCS: 99024

== ENCOUNTER → 2023-07-06 08:54 | Outpatient (REF) | payer OTHER, SELFPAY ==
--- NOTE | 2023-07-06 08:58 | CA_ITS ---
Transthoracic Echocardiogram Patient (Last, First, Middle): Tomás Steinberg, Gender: Male Date of : 1960 Age: 62 Procedure Date: 07/06/2023 Procedure Type: Transthoracic Echocardiogram Location: OP Height: 162.56 cm Weight: 90.27 kg BSA: 1.95 m2 Heart Rate: bpm BP: 156 / 89 mmHg Watchstander: TRIXIE Referring MD: Cristhian Baker MD Symptoms: I10 HTN R60.0 EDEMA Study Quality: Adequate ECG Rhythm: Sinus Conclusions: - The left ventricular systolic function is normal. The calculated ejection fraction is 62% by biplane method. - No obvious valvular pathology seen on this study. - Small plaque is seen in the sino tubular ridge. Findings Left Ventricle Normal left ventricular cavity size. There is normal left ventricular wall thickness. The left ventricular systolic function is normal. The calculated ejection fraction is 62% by biplane method. There is no evidence of regional wall motion abnormalities. Diastolic function is normal for age. LV peak GLS -20.3%. Right Ventricle Normal right ventricular cavity size and systolic function. Atria Both atria are normal in size. Aortic Valve There is a normal trileaflet aortic valve. There is mild calcification of the aortic valve. There is no aortic valve stenosis. There is no aortic valve regurgitation. Mitral Valve The mitral valve appears normal. There is no mitral valve regurgitation. There is no mitral valve stenosis. Pulmonic Valve The pulmonic valve is likely normal. Tricuspid Valve There is trace tricuspid valve regurgitation. There is no evidence of pulmonary hypertension. Great Vessels The asc aorta is normal in size. Small plaque is seen in the sino tubular ridge. Venous The inferior vena cava is normal in size and collapses greater than 50% with inspiration. Pericardium/Pleural There is no evidence of pericardial effusion. Prior Study Comparison No prior study available for comparison. Recommendations, Care & Conclusions No obvious valvular pathology seen on this study. Measurements 2D Linear Measurements IVSd: 0.83 0.6-0.9/0.6-1.0 cm LVIDd: 5.36 3.9-5.3/4.2-5.9 cm LVIDd Index: 2.75 2.4-3.2/2.2-3.1 cm/m2 LVIDs: 3.06 2.0-3.6 cm LVPWd: 0.93 0.7-1.1 cm LA Diam: 3.70 2.7-3.8/3.0-4.0 cm LAIDs Index: 1.90 1.5-2.3 cm/m2 LV Mass: 215.23 67-162/88-224 g LV Mass Index: 110.38 43-95/49-115 g/m2 LVOT Diam: 2.10 3.0+(-)1.3 cm 2D Systolic Function EF 4C: 63.20 >55% EF 2C: 58.80 >55% EF BiP: 61.70 >55% Mitral Valve MV Pk E: 0.43 MV PK A: 0.69 MV Decel Time: 363.00 E/A: 0.60 E'Lateral: 6.42 E'Medial: 4.24 E/E' Med: 10.20 E/E' Lat: 6.70 PHT: 106.00 MVA PHT: 2.08 Decel [place]: 1.19 Aortic Valve AoV Pk Dima: 1.60 AoV Mn Dima: 1.06 AoV VTI: 0.32 AoV Pk Grad: 10.00 Aov Mn Grad: 5.00 PRATIBHA Cont.VTI: 2.17 LVOT LVOT Pk Dima: 1.08 LVOT Mn Dima: 0.63 LVOT VTI: 0.20 LVOT Pk Grad: 5.00 LVOT Mn Grad: 2.00 LVOT Diam: 2.10 LVOT Area: 3.46 Diastolic Function MV Pk E: 0.43 MV Pk A: 0.69 E/A: 0.60 E'Medial: 4.24 E/E' Med: 10.20 E' Laterial: 6.42 E/E' Lat: 6.70 Right Ventricle TAPSE (mm): 22.60 TVS' Dima: 12.50 Tricuspid Valve RA Press: 3.00 Great Vessels Aorta Sinus of Valsalva: 3.43 2.0-3.[address] Ridge: 2.69 1.7-3.4 cm Ao Asc: 3.50 2.1-3.4 cm Updated in Other Vendor System with Status of Final Jerome Myers MD electronically signed on 07/07/2023 3:14:58 PM with status of Final
== END ==
LOC: HO.CARD 08:54
PROVIDERS: PCP Internal Medicine; Visit Provider Internal Medicine
DX: I10 Essential (primary) hypertension (principal); R60.0 Localized edema
CPT/HCPCS: 93306; 93356

== ENCOUNTER → 2023-07-06 08:58 | Outpatient (BNV) | payer OTHER, SELFPAY | PROVIDERS: PCP Internal Medicine; Visit Provider Internal Medicine | DX: I10 Essential (primary) hypertension (principal); R60.9 Edema, unspecified | CPT/HCPCS: 93306 ==

== ENCOUNTER 2024-12-30 14:36 | Outpatient (REF) | payer MEDICARE, MEDICAID, SELFPAY ==
--- NOTE | ~2024-12-30 | XR_ITS ---
EXAMINATION: X-ray lumbar spine. CLINICAL INFORMATION: Post procedural. TECHNIQUE: AP and lateral views. Lateral views during flexion and extension. COMPARISON: October 13, 2022. FINDINGS: Metallic chest pedicle screws at both sides of L3-4. Status post intervertebral disc spacers L4-5 and L5-S1. Grade 1 anterolisthesis L5-S1 which persists during flexion and extension position. Multilevel marginal osteophyte formation and endplate sclerosis throughout the axial skeleton. No lytic or blastic lesions. XR/XR lumbar spine 4V min IMPRESSION: Grade 1 anterolisthesis L5-S1 without gross instability. Status post intervertebral disc spacers L4-5 and L5-S1, new since prior exam. Stable posterior lumbar fusion L3-4. Electronically signed by: Wesley Guerra MD 12/30/2024 03:38 PM EDT
== END 2024-12-30 14:37 | disposition home or self-care (01) ==
LOC: HO.HOSX 14:36
PROVIDERS: PCP Internal Medicine; Visit Provider Physician Assistant
DX: M48.061 Spinal stenosis, lumbar region without neurogenic claudication (principal); Z98.890 Other specified postprocedural states
CPT/HCPCS: 72110; 99212

== ENCOUNTER 2024-12-30 14:36 | Outpatient (AMB) | payer MEDICARE, MEDICAID, SELFPAY ==
--- NOTE | 2024-12-30 14:39 | HO.SPINEOV ---
Intake Visit Reasons: LBP sx 03/27/23 Intake Note: Mr. Steinberg has returned to our office c/o low back pain. 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 Just to recap, this is a gentleman who underwent an L3-4 fusion at an outside facility through a posterior approach. We ultimately saw him for bilateral leg pain and back pain and did an L2-3 decompression, subsequently followed by an L4-5 and L5-S1 anterior lumbar interbody fusion. He was doing great for about 2 years until a few months ago when he started to notice increased back pain and bilateral lower extremity pain going into his thighs and calves similar to what he had before surgery. It has been getting aggravated as he has been outside more, mowing the lawn and doing activities. He has tried [id number] pain medications as well as tincture of time and trying to wait it out but does not seem to be improving. He is having a hard time walking as well. His gross motor strength and reflexes are normal. His incisions are all healed up well. His x-rays today done today show stable positioning of the hardware. At this point I am going to order an MRI it has been 3 months with the symptoms. Total amount of time spent in this visit was 20 minutes in discussion of symptoms, lumbar x-ray imaging results and subsequent plan of care Phu Wilkinson MD,PhD [facility] Orders: Orders MR lumbar spine wo con Today M48.061 - Spinal stenosis, lumbar region without neurogenic claudication XR lumbar spine 4V min Today M48.061 - Spinal stenosis, lumbar region without neurogenic claudication, Z98.890 - Other specified postprocedural states Coding Level of Care Code Est Pt Level 3 (16570) Diagnoses S/P spinal surgery Z98.890 Lumbar stenosis M48.061
--- OUTSIDE RECORDS SUMMARY | 2024-12-30 16:07 | XMS_ITS | Encounter Summary ---
Author Organization [facility] Address [address] [place] [address] Phone Care Team Providers Care Pick Pulling Machine Tender Name Role Phone Cristhian Baker MD Primary Care Provider [phone] Encounter Details Date Type Department Care Team (Late Contact Info) Description 11/22/2023 Documentation Only [facility] [address] [place] [address] Brandyn Wren [place] [address] [place] [phone] Social History Tobacco Use Types Packs/Day Years Used Date Smoking Tobacco: Never Alcohol Use Standard Drinks/Week Comments Yes 0 (1 standard drink = 0.6 oz pur e alcohol) occas. Sex and Gender Information Value Date Recorded Sex Assigned at Not on file Legal Sex Male 3:20 PM EDT Gender Identity Not on file Sexual Orientation Not on file documented as of this encounter Plan of Treatment Upcoming Encounters Date Type Department Care Team (Late Contact Info) Description 07/02/2025 1:45 PM EST Office Visit [facility] [address] [place] [place] [address] Fredrick Danielle MD [address] [place] [address] [place] [address] documented as of this encounter Visit Diagnoses Not on filedocumented in this encounter Care Teams Pick Pulling Machine Tender Relationship Specialty Start Date End Date Cristhian Baker MD [address] [facility] [place] [address] PCP - General Internal Medicine 11/22/23 documented as of this encounter
== END 2024-12-30 15:17 | disposition home or self-care (01) ==
LOC: HO.HNS 14:37
PROVIDERS: PCP Internal Medicine; Visit Provider Physician Assistant
DX: Z98.890 Other specified postprocedural states (principal); M48.061 Spinal stenosis, lumbar region without neurogenic claudication
CPT/HCPCS: 99213

== ENCOUNTER → 2024-12-30 14:47 | Outpatient (BNV) | payer MEDICARE, MEDICAID, SELFPAY | PROVIDERS: PCP Internal Medicine; Visit Provider Radiology Diagnostic Radiology | DX: M43.17 Spondylolisthesis, lumbosacral region (principal) | CPT/HCPCS: 72110 ==

== ENCOUNTER 2025-01-08 08:10 | Outpatient (REF) | payer MEDICARE, MEDICAID, SELFPAY ==
--- NOTE | ~2025-01-08 | MR_ITS ---
EXAMINATION: MR LUMBAR SPINE WITHOUT CONTRAST CLINICAL INFORMATION: Spinal stenosis, lumbar region without neurogenic claudication. COMPARISON: None available. TECHNIQUE: MRI of the lumbar spine was obtained using routine sequences without contrast. FINDINGS: Last rib-bearing vertebra labeled T12. Paramagnetic field distortion secondary to metallic hardware from L3 to S1 with transpedicular screws posteriorly at L3-4 and intervertebral disc spacers L4-5 and L5-S1 levels. Grade 1 anterolisthesis L5-S1. Subtle grade 1 retrolisthesis L1-2. Conus medullaris ends at pedicle of T12 with normal signal. T11-12: Facet joint hypertrophy bilaterally. No central spinal canal or neuroforamina stenosis. T12-L1: Facet joint hypertrophy. No central spinal canal or neuroforamina stenosis. L1-2: Broad-based disc bulging. Facet joint and ligamentum flavum hypertrophy. Central spinal canal and bilateral neuroforamina stenosis likely encroaching the neural elements. L2-3: Facet joint and ligamentum flavum hypertrophy. Broad-based disc bulging. CSF effacement of the thecal sac, central spinal canal and bilateral neuroforamina stenosis likely compressing the neural elements. L3-4: Postsurgical changes, right hemilaminectomy. No grouping or clumping of the neural elements. L4-5: Postsurgical changes. Facet joint ligamentum flavum hypertrophy. Central spinal canal and bilateral neuroforamina stenosis likely encroaching the neural elements. L5-S1: Postsurgical changes. No central spinal canal stenosis. Bilateral neuroforamina stenosis likely encroaching the exiting nerve roots. No prevertebral compartment hematoma, mass or fluid collection. There are multifocal reference sinuses hyperintense T2 cystic lesions kidneys. MR/MR lumbar spine wo con IMPRESSION: Central spinal canal and bilateral neuroforamina stenosis compressing the neural elements at L2-3. Central spinal canal and bilateral neuroforamina narrowing encroaching the neural elements at L1-2. Central spinal canal and neuroforamina stenosis at L4-5 likely encroaching the neural elements. Bilateral neuroforamina stenosis at L5-S1 encroaching likely compressing the L5 exiting nerve roots. Electronically signed by: Wesley Guerra MD 01/08/2025 11:42 AM EDT
--- OUTSIDE RECORDS SUMMARY | 2025-01-08 08:12 | XMS_ITS | Encounter Summary ---
Author Organization [facility] Address [address] [place] [address] Phone Care Team Providers Care Utility Mechanic Name Role Phone Cristhian Baker MD Primary Care Provider [phone] Encounter Details Date Type Department Care Team (Late Contact Info) Description 11/22/2023 Documentation Only [facility] [address] [place] [address] Brandyn Wren [place] [address] [place] [phone] Social History Tobacco Use Types Packs/Day Years [...] Visit [facility] [address] [place] [address] Fredrick Danielle MD [address] [place] [address] [place] [address] documented as of this encounter Visit Diagnoses Not on filedocumented in this encounter Care Teams Utility Mechanic Relationship Specialty Start Date End Date Cristhian Baker MD [address] [facility] [place] [address] PCP - General Internal Medicine 11/22/23 documented as of this encounter
--- OUTSIDE RECORDS SUMMARY | 2025-01-08 08:12 | XMS_ITS | Patient Health Record ---
Author Organization [facility] Address [address] [place] [address] Care Team Providers Care Supervisor Anodizing Name Role Phone Cristhian Baker MD Primary Care Provider Mao Powers Unavailable [phone] Allergies No Known Allergies Reason For Referral No Information Medications Medication SIG (Take, Route, Frequency, Duration) Notes Start Date End Date Status amLODIPine Besylate 5 MG Oral for 100 Days Active Lisinopril 40 MG Oral for 90 Days Active Chlorthalidone 25 MG Oral for 90 Days Active Folic Acid 1 MG 1 tablet Orally Once a day Active amLODIPine Besylate 10 MG 1 tablet Orall y Once a day Active Omeprazole 40 MG TAKE 1 CAPSULE BY MOUTH EVERY DAY for 30 Active Methotrexate 2.5 MG 1 Orally every Monday Active Hydroxychloroquine Sulfate 2 00 MG 1 tablet with food or milk Orally Once a day Active Immunizations Vaccine Route Administration Date Status Comme nts Flu vaccine no Preserv 3 and > Unknown 05/15/2017 Admin istered Influenza Unknown 05/10/2019 Administered Influenza Unknown 03/10/2021 Administered Influenza Unknown 04/24/2024 Administered Problems Problem Type SNOMED Code ICD Code Onset Dates Problem Status W/U Status Risk Notes Problem 154780512 Encounter for screening for malignant neoplasm of colon (Z12.11) Active confirmed Problem 304062327 History of adenomatous polyp of colon (Z86.010) Active confirmed Problem 892186492 Gastroesophageal reflux disease without esophagitis (K21.9) Active confirmed Problem Family History of Cancer of Colon (Situation) (941484274) Family history of colon cancer (Z80.0) Active confirmed Problem 444798432 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 Vital Signs Temperature 98.0 degrees Fahrenheit 12/26/2024 Blood pressure diastolic 01 mm Hg 12/26/2024 Height 64.5 in 12/26/2024 Blood pressure systolic 001 mm Hg 12/26/2024 Weight 207.8 lbs 12/26/2024 BMI 35.11 kg/m2 12/26/2024 Procedures Procedure Date Ordered Date Performed Result Body Sit e COLONOSCOPY 12/26/2024 N/A Encounters Encounter Location Date Provider Diagnosis [facility] [address] [place] [address] 12/26/2024 Mao Contreras Encounter for screen ing for malignant neoplasm of colon Z12.11 ; Gastroesophageal reflux disease without esophagitis K21.9 ; History of adenomatous polyp of colon Z86.010 ; Family history of colon cancer Z80.0 and Eosinophilic gastroenteritis K52.81 Assessments Encounter Date Diagnosis (ICD Code) Assessment Notes Treatment Notes Treatment Clinical Notes Section Notes 12/26/2024 Encounter for screening for malignant neoplasm of colon (ICD-10 - Z12.11) Overall, Rudi presently appears well and is not having any new or worrisome GI complaints. I did recommend a follow-up colonoscopy for further screening given his personal history of tubular adenomas of the colon, family history of 2 siblings with colon cancer, and his last colonoscopy being done about 5 years ago. We did review the rationale for this in regard to colon cancer prevention. The procedure will be done with monitored anesthesia care. Full consent has been obtained from him for this, including risk of bleeding and perforation. He was given the below instructions regarding adjustment of his medication for the procedure. His reflux seems to be quite stable on his daily omeprazole and I did advise him to continue that as well. 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 I did advise him to certainly let me know if he has any further problems in that regard. Rudi was comfortable with this plan. Thank you again for allowing me to participate in Rudi's care. I shall continue to keep you advised of his progress. 12/26/2024 Gastroesophageal reflux disease without esophagitis (ICD-10 - K21.9) Continue the daily omeprazole Overall, Rudi presently appears well and is not having any new or worrisome GI complaints. I did recommend a follow-up colonoscopy for further screening given his personal history of tubular adenomas of the colon, family history of 2 siblings with colon cancer, and his last colonoscopy being done about 5 years ago. We did review the rationale for this in regard to colon cancer prevention. The procedure will be done with monitored anesthesia care. Full consent has been obtained from him for this, including risk of bleeding and perforation. He was given the below instructions regarding adjustment of his medication for the procedure. His reflux seems to be quite stable on his daily omeprazole and I did advise him to continue that as well. 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 I did advise him to certainly let me know if he has any further problems in that regard. Rudi was comfortable with this plan. Thank you again for allowing me to participate in Rudi's care. I shall continue to keep you advised of his progress. 12/26/2024 History of adenomatous polyp of colon (ICD-10 - Z86.010) Overall, Rudi presently appears well and is not having any new or worrisome GI complaints. I did recommend a follow-up colonoscopy for further screening given his personal history of tubular adenomas of the colon, family history of 2 siblings with colon cancer, and his last colonoscopy being done about 5 years ago. We did review the rationale for this in regard to colon cancer prevention. The procedure will be done with monitored anesthesia care. Full consent has been obtained from him for this, including risk of bleeding and perforation. He was given the below instructions regarding adjustment of his medication for the procedure. His reflux seems to be quite stable on his daily omeprazole and I did advise him to continue that as well. 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 I did advise him to certainly let me know if he has any further problems in that regard. Rudi was comfortable with this plan. Thank you again for allowing me to participate in Rudi's care. I shall continue to keep you advised of his progress. 12/26/2024 Family history of colon cancer (ICD-10 - Z80.0) Overall, Rudi presently appears well and is not having any new or worrisome GI complaints. I did recommend a follow-up colonoscopy for further screening given his personal history of tubular adenomas of the colon, family history of 2 siblings with colon cancer, and his last colonoscopy being done about 5 years ago. We did review the rationale for this in regard to colon cancer prevention. The procedure will be done with monitored anesthesia care. Full consent has been obtained from him for this, including risk of bleeding and perforation. He was given the below instructions regarding adjustment of his medication for the procedure. His reflux seems to be quite stable on his daily omeprazole and I did advise him to continue that as well. 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 I did advise him to certainly let me know if he has any further problems in that regard. Rudi was comfortable with this plan. Thank you again for allowing me to participate in Rudi's care. I shall continue to keep you advised of his progress. 12/26/2024 Eosinophilic gastroenteritis (ICD-10 - K52.81) Overall, Rudi presently appears well and is not having any new or worrisome GI complaints. I did recommend a follow-up colonoscopy for further screening given his personal history of tubular adenomas of the colon, family history of 2 siblings with colon cancer, and his last colonoscopy being done about 5 years ago. We did review the rationale for this in regard to colon cancer prevention. The procedure will be done with monitored anesthesia care. Full consent has been obtained from him for this, including risk of bleeding and perforation. He was given the below instructions regarding adjustment of his medication for the procedure. His reflux seems to be quite stable on his daily omeprazole and I did advise him to continue that as well. 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 I did advise him to certainly let me know if he has any further problems in that regard. Rudi was comfortable with this plan. Thank you again for allowing me to participate in Rudi's care. I shall continue to keep you advised of his progress. Plan Of Treatment Pending Test Test Name Order Date COLONOSCOPY 12/26/2024 CHEM 7 PROFILE 11/02/2021 LIVER PROFILE 11/02/2021 CRP 11/02/2021 CBC w DIFF 11/02/2021 SED RATE (ESR) 11/02/2021 EOSINOPHIL COUNT,TOTAL 11/02/2021 Complete Blood Count Auto Diff Future Test Test Name Order Date COLONOSCOPY 04/30/2014 COLONOSCOPY 06/25/2019 Next Appt Details Provider Name:Mao Contreras , 03/26/2025 10:30:00 AM, [address] [facility] , [place], [place], [id number], Insurance Providers Payer Name Payer Address Payer Phone Subscriber Number Group Number Insured Name Patient Relationship to Insured Coverage Start Date Coverage End Date [facility] Medicare Advantage Plan [address] [address] [place] [address] [id number] RUDI CALLOWAY Self - patient is the insured MEDICAID OF 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 As of the December 2024 office visit he was last treated for a flareup of that in 2021 with prednisone Denies [place],DM,CVA,Lung disease,renal dise ase Negative colonoscopy in 06/2014 Colonoscopy in 05/[address] [facility] with a small tubular adenoma removed-- incomplete to ascending colon and limited due to prep HTN Negative colonoscopy in 10/2019 Surgical History Surgery Date(Month/Year) Bilateral knee replacements in 12/2014 Back surgery x 4--most recent was 2022 w [facility] Dr. Wilkinson
== END 2025-01-08 08:11 | disposition home or self-care (01) ==
LOC: HO.MRI 08:10
PROVIDERS: PCP Internal Medicine; Visit Provider Physician Assistant
DX: M48.061 Spinal stenosis, lumbar region without neurogenic claudication (principal)
CPT/HCPCS: 72148

== ENCOUNTER → 2025-01-08 08:20 | Outpatient (BNV) | payer MEDICARE, MEDICAID, SELFPAY | PROVIDERS: PCP Internal Medicine; Visit Provider Radiology Diagnostic Radiology | DX: M48.061 Spinal stenosis, lumbar region without neurogenic claudication (principal) | CPT/HCPCS: 72148 ==

== ENCOUNTER 2025-01-17 11:36 | Outpatient (AMB) | payer MEDICARE, MEDICAID, SELFPAY ==
--- NOTE | 2025-01-17 11:39 | A.SPINEOV_ITS ---
Intake Visit Reasons: Discuss results of MRI Intake Note: Mr. Steinberg is here to Discuss results of MRI. Forest Economics Professor Required: No Allergies No Known Allergies (No Known Allergies*) Allergy (Verified 01/17/25 11:41) Assessment & Plan Assessment & Plan (1) Lumbar stenosis: Code(s): M48.061 - Spinal stenosis, lumbar region without neurogenic claudication Category: Medical Plan Mr Steinberg came back in the office today for follow-up. He continues to have back pain and bilateral lower extremity pain which is severe. It is very limiting to him in terms of the amount of activity he can do, walking and yd work etc.. He was doing excellent after his two-level lumbar fusion from L4-S1. He is very frustrated now with his quality of life. He did a few months of physical therapy without any meaningful improvement in symptoms and was trying Motrin/Tylenol combination for awhile but it really was not helpful. 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 There is some clumping of the nerve roots. I reviewed his imaging with Dr. Wilkinson who believes he would be a good candidate for an L2-3 oblique lumbar interbody fusion with revision of posterior instrumentation. He has sextant screws done from his original surgeon Dr. Fernandez who performed his L3-4 posterior lumbar interbody fusion. He understands that there is further risk of adjacent segment disease, but the pain at this point is just too much to bear. He does not want to undergo further injections. He has done these things in the past without success. Therefore, we are going to book him for surgery in early March. He will stop his methotrexate 2 weeks before surgery. He takes this for rheumatoid arthritis. He has no major medical conditions to report from a cardiopulmonary standpoint. He takes no blood thinners and has otherwise been in his usual state of health. The patient was given risk and benefits of oblique lumbar interbody fusion surgery including but not limited to infection, hematoma, nerve injury, durotomy, weakness, bowel/bladder injury, persistent pain, and pseudoarthosis or instrumentation failure. We also discussed the option to continue with conservative treatment and patient wishes to proceed with surgery. They are aware they should stop NSAIDs 7 days prior to surgery. All questions were answered to the best of our ability. If there is anything about this patients medical history that we have overlooked or concerns you have about us proceeding with surgery we would appreciate any input you can offer Total amount of time spent in this visit was 20 minutes in discussion of s ymptoms, lumbar MRI imaging results and subsequent plan of care Phu Wilkinson MD,PhD [facility] Coding Level of Care Code Est Pt Level 3 (68568) Diagnoses Lumbar stenosis M48.061
--- OUTSIDE RECORDS SUMMARY | 2025-01-17 12:06 | XMS_ITS | Patient Health Record ---
Author Organization [facility] Address [address] [place] [address] Care Team Providers Care Medical Technical Writer Name Role Phone Cristhian Baker MD Primary Care Provider Mao Powers Unavailable [phone] Allergies No Known Allergies Reason For Referral [...] Problem Status W/U Status Risk Notes Problem 683474596 Encounter for screening for malignant neoplasm of colon (Z12.11) Active confirmed Problem 569006589 History of adenomatous polyp of colon (Z86.010) Active confirmed Problem 431168038 Gastroesophageal reflux disease without esophagitis (K21.9) Active confirmed Problem Family History of Cancer of Colon (Situation) (370031130) Family history of colon cancer (Z80.0) Active confirmed Problem 414573056 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 I shall continue to keep you [...] Name:Mao Contreras , 03/26/2025 10:30:00 AM, [address] [facility] , [place], [place], [id number], Insurance Providers Payer Name Payer Address Payer Phone Subscriber Number Group Number Insured Name Patient Relationship to Insured Coverage Start Date Coverage End Date [facility] Medicare Advantage Plan [address] [address] [place] [address] [id number] RUDI CALLOWAY Self - patient is the insured MEDICAID OF [facility] [address] [place] [address] [id number] RUDI CALLOWAY Self - patient is the [...] of prednisone with good results; flareup in [place] in May, 2019 treated with oral prednisone with good relief. As of the December 2024 office visit he was last treated for a flareup of that in 2021 with prednisone Denies [place],DM,CVA,Lung disease,renal dise ase Negative colonoscopy in 06/2014 Colonoscopy in 05/2019 in [facility] with a small tubular adenoma removed-- incomplete to ascending colon and limited due to prep HTN Negative colonoscopy in 10/2019 Surgical History Surgery Date(Month/Year) Bilateral knee replacements in 12/2014 Back surgery x 4--most recent was 20[address] [facility] [address] Wilkinson
--- OUTSIDE RECORDS SUMMARY | 2025-01-17 12:06 | XMS_ITS | Encounter Summary ---
Author Organization [facility] Address [address] [place] [address] Phone Care Team Providers Care Mechanical Applications Engineer Name Role Phone Cristhian Baker MD Primary Care Provider [phone] Encounter Details Date Type Department Care Team (Late Contact Info) Description 11/22/2023 Documentation Only [facility] [address] [place] [address] [place] [phone] Social History Tobacco Use Types Packs/Day Years [...] Visit [facility] [address] [place] [address] Fredrick Danielle MD [address] [place] [address] [place] [address] documented as of this encounter Visit Diagnoses Not on filedocumented in this encounter Care Teams Mechanical Applications Engineer Relationship Specialty Start Date End Date Cristhian Baker MD [address] [facility] [place] [address] PCP - General Internal Medicine 11/22/23 documented as of this encounter
== END 2025-01-17 13:52 | disposition home or self-care (01) ==
LOC: HO.HNS 11:37
PROVIDERS: PCP Internal Medicine; Visit Provider Physician Assistant
DX: M48.061 Spinal stenosis, lumbar region without neurogenic claudication (principal)
CPT/HCPCS: 99213

== ENCOUNTER → 2025-01-17 11:36 | Outpatient (BNVA) | payer MEDICARE, MEDICAID, SELFPAY | PROVIDERS: PCP Internal Medicine; Visit Provider Physician Assistant | DX: M48.061 Spinal stenosis, lumbar region without neurogenic claudication (principal) | CPT/HCPCS: 99212 ==

== ENCOUNTER → 2025-03-11 10:58 | Outpatient (BNV) | payer MEDICARE, MEDICAID, SELFPAY | PROVIDERS: Admitting Provider Neurological Surgery; PCP Internal Medicine; Visit Provider Internal Medicine Cardiovascular Disease | DX: I49.3 Ventricular premature depolarization (principal); R00.1 Bradycardia, unspecified | CPT/HCPCS: 93010 ==

== ENCOUNTER 2025-03-18 08:13 | Inpatient (IN) | payer MEDICARE, MEDICAID, SELFPAY ==
--- NOTE | 2025-03-11 | ECG_ITS ---
Test Reason : preop Blood Pressure : */* mmHG Vent. Rate : 59 BPM Atrial Rate : 59 BPM P-R Int : 208 ms QRS Dur : 104 ms QT Int : 392 ms P-R-T Axes : 32 -39 14 degrees QTcB Int : 388 ms Sinus bradycardia with Premature supraventricular complexes Left axis deviation Minimal voltage criteria for LVH, may be normal variant ( R in aVL ) Abnormal ECG When compared with ECG of 07-Nov-2022 14:38, Premature supraventricular complexes are now Present QRS axis Shifted left Referred By: Amanda Mohr Electronically Signed By: Jacob Barlow
[2025-03-11 10:04] VITALS: BMI 36.1
[2025-03-11 10:09] VITALS: BP 157/75; PULSE 60; RESP 20; O2SAT 97
[2025-03-18] VITALS (14 sets, daily range): BP systolic 107–143; BP diastolic 51–81; PULSE 54–67; RESP 11–18; TEMP 36–36.3; O2SAT 93–100; BMI 37.5
--- NOTE | ~2025-03-18 | FL_ITS ---
EXAMINATION: FL GUIDANCE ONLY HISTORY: L2-3 OLIF with revision posterior instrumentation COMPARISON: Correlation is made to plain films of the lumbar spine dated 12/30/2024. TECHNIQUE: Fluoroscopy time: 1.095 minutes. Cumulative Dose: 54.175 mGy. DAP: 14.269 mGym2 Images: . FINDINGS: Fluoroscopic spot films of the lumbar spine demonstrate removal of pedicle screws at the L4 level and placement of pedicle screws at the L3 level with associated spinal stabilization rods and an L3-4 disc prosthesis. FL/FL guidance in OR IMPRESSION: Fluoroscopy during procedure. Please see procedure report for additional information. Electronically signed by: Mao Hamilton MD 03/18/2025 02:02 PM EDT
[2025-03-18] MEDS: Lactated Ringers 1,000 ML 100 ML IVCONT (08:33)
--- OUTSIDE RECORDS SUMMARY | 2025-03-18 09:12 | XMS_ITS | Patient Health Record ---
Author Organization [facility] Address [address] [place] [address] Care Team Providers Care Land Leasing Information Clerk Name Role Phone Cristhian Baker MD Primary Care Provider Mao Powers Unavailable [phone] Allergies No Known Allergies Reason For Referral [...] Problem Status W/U Status Risk Notes Problem [id number] Encounter for screening for malignant neoplasm of colon (Z12.11) Active confirmed Problem 023830639 History of adenomatous polyp of colon (Z86.010) Active confirmed Problem 523075381 Gastroesophageal reflux disease without esophagitis (K21.9) Active confirmed Problem Family History of Cancer of Colon (Situation) (953084015) Family history of colon cancer (Z80.0) Active confirmed Problem 465384395 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 Vital Signs Temperature 98.0 degrees Fahrenheit 12/26/2024 Blood pressure diastolic 01 mm Hg 12/26/2024 Height 64.5 in 12/26/2024 Blood pressure systolic 001 mm Hg 12/26/2024 Weight 207.8 lbs 12/26/2024 BMI 35.11 kg/m2 12/26/2024 Procedures Procedure Date Ordered Date Performed Result Body Sit e COLONOSCOPY 12/26/2024 N/A Encounters Encounter Location Date Provider Diagnosis [facility] [address] [place] [phone] 12/26/2024 Mao Contreras Encounter for screen ing for malignant neoplasm of colon Z12.11 ; Eosinophilic gastroenteritis K52.81 ; Gastroesophageal reflux disease without esophagitis K21.9 ; History of adenomatous polyp of colon Z86.010 and Family history of colon cancer Z80.0 [facility] [address] [place] [phone] 03/03/2025 aMo Contreras Assessments Encounter Date Diagnosis (ICD Code) Assessment [...] COUNT,TOTAL 11/02/2021 Complete Blood Count Auto Diff 04/27/202 2 Future Test Test Name Order Date COLONOSCOPY 04/30/2014 COLONOSCOPY 06/25/2019 Next Appt Details Provider Name:Mao Contreras , 06/02/2025 09:30:00 AM, [address] [facility] , [place], [place], [id number], Insurance Providers Payer Name Payer Address Payer Phone Subscriber Number Group Number Insured Name Patient Relationship to Insured Coverage Start Date Coverage End Date [employer] Medicare Advantage Plan [address] [address] [place] [address] [id number] RUDI CALLOWAY Self - patient is the insured MEDICAID OF [facility] [address] [place] [address] [id number] RUDI CALLOWAY Self - patient is the [...] of that in 2021 with prednisone Denies DC,DM,CVA,Lung disease,renal dise ase Negative colonoscopy in 06/2014 Colonoscopy in 05/2019 in [facility] with a small tubular adenoma removed-- incomplete to ascending colon and limited due to prep HTN Negative colonoscopy in 10/2019 Surgical History Surgery Date(Month/Year) Bilateral knee replacements in 12/2014 Back surgery x 4--most recent was 2022 w sushma Wilkinson
--- OUTSIDE RECORDS SUMMARY | 2025-03-18 09:12 | XMS_ITS | Clinical Summary ---
Author Organization [facility] Address [address] [facility] [address] [place] [address] Phone Care Team Providers Care Nursing Home Manager Name Role Phone Cristhian Baker MD Primary Care Provider [phone] Rory Martínez MD Unavailable [phone] Daisha Foreman OD Unavailable Mao Contreras MD Unavailable [phone] Allergies No known active allergies Medications methotrexate 2.5 MG Oral tablet Take 20 mg by mouth once a week. On Mondays Active hydroxychloroquin e (PLAQUENIL) 200 mg tablet Take 400 mg by mouth daily. 2 8 Active omeprazole (PRILOSEC) 40 MG capsule Take 40 mg by mouth daily. 0 Active blood pressure monitor KitIndications:Pr imary hypertension Use daily as directed 1 kit 3 Active lisinopril (PRINIVIL,ZESTRIL ) 40 MG tabletIndications :Primary hypertension TAKE 1 TABLET(40 MG) BY MOUTH DAILY 90 tablet 3 4 Active chlorthalidone (HYGROTON) 25 MG tablet Take 1 tablet by mouth every other day. 4 Active amLODIPine (NORVASC) 5 MG tabletIndications :Primary hypertension,Loca lized edema TAKE 1 TABLET(5 MG) BY MOUTH DAILY 100 tablet 3 5 Active cholecalciferol (VITAMIN D3) 2,000 unit tablet Take 2,000 Units by mouth every morning. 3 Active cyanocobalamin, vitamin B-12, 500 MCG tablet Take 500 mcg by mouth every morning. Active folic acid (FOLVITE) 1 MG tablet TAKE 1 TABLET(1 MG) BY MOUTH DAILY 90 tablet 3 5 Active Active Problems Problem Noted Date Diagnosed Date Costochondral chest pain 04/02/2024 Assessment & Plan (04/02/2024 5:11 PM EDT): This is definitely coming from the chest wall where the pain is reproducible on pressure applied to the chest wall. Costochondritis is the diagnosis, normally would prescribe nonsteroidals but methotrexate does not allow it. So instead we will do a prednisone taper 60 mg over 2 days then 50 mg x 2 days etc. until 0. If he is not feeling better by Monday he will call the office to let us know how he is doing. Of the Vicodin is so that he could sleep at night. Will give him just 7 tablets take 1 tablet at night. Obesity, Class II, BMI 35-39.9 12/28/2020 BPH (benign prostatic hyperplasia) 08/04/2017 Degenerative disc disease, lumbar 08/04/2017 Eosinophilic gastroenteritis 08/04/2017 Essential hypertension 08/04/2017 Gastroesophageal reflux disease 08/04/2017 History of herniated intervertebral disc 018 Pure hypercholesterolemia 08/04/2017 Calculus of kidney 08/04/2017 Rheumatoid arthritis 08/04/2017 Rheumatoid arthritis involving multiple sites Assessment & Plan (04/02/2024 5:10 PM EDT): It would not appear that there are hot joints right now elsewhere in the body. He will continue with the Plaquenil methotrexate for the rheumatoid arthritis. Hesitancy of micturition 08/04/2017 Encounters Date Type Department Care Team Description 02/26/2025 10:28 AM EDT - 02/26/2025 11:59 PM EDT Hospital Encounter [facility] [address] [place] [address] Cristhian Baker MD Discharge Disposition: Home or Self Care 02/26/2025 9:30 AM EDT Office Visit [facility] [address] [facility] [place] [address] Cristhian Baker MD Essential hypertension (Primary Dx); Chronic renal failure, stage 3a; Impaired fasting glucose 02/10/2025 Telephone [facility] [address] [facility] [address] Cristhian Baker MD Review of Orders 01/31/2025 Orders Only [facility] [address] [place] [place] [address] ProviderYolie MD 01/28/2025 Orders Only [facility] [address] [facility] [address] Yolie Moreno MD 01/13/2025 Telephone [facility] [address] [facility] [place] [address] Cristhian Baker MD 01/13/2025 Refill [facility] [address] [facility] [place] [address] Cristhian Baker MD Medication Refill 01/09/2025 Orders Only [facility] [address] [facility] [address] Yolie Moreno MD 12/30/2024 Orders Only [facility] [address] [place] [address] ProviderYolie MD from Last 3 Months Immunizations Immunization Administration Dates Next Due COVID-19 (Pre-05/01) Moderna Vaccine Adult Booster/6-11yrs Primary 07/06/2021 COVID-19 (Pre-05/01) Pfizer Vaccine, mRNA, PF 12/16/2020,11/25/2020 COVID-19 Pfizer Comirnaty Vaccine 12+ 05/20/2024 INFLUENZA, SPLIT VIRUS, TRIV ALENT W/ PRESERVATIVE IM 03/10/2021,05/10/2019,05/15/2017,06/01 Influenza High-Dose Trivalen t Preservative Free IM 05/02/2024 Influenza Quadrivalent MDCK w/Preservative IM 05/05/2021 Influenza Quadrivalent Prese rvative Free IM 04/25/2023,05/19/2022,07/27/2020,04/03 Influenza, Unspecified Formulation 09/29/2012 PPD Test 01/09/2018,07/10/2004 Pneumococcal conjugate PCV20 08/25/2023 Pneumococcal polysaccharide PPSV23 07/17/2018, Td (adult) 5 Lf Tetanus Toxo id, PF, Adsorbed 01/15/2019,07/10/2007 Tdap 05/20/2024 Zoster recombinant 01/08/2019,10/20/2018 Family History Medical History Relation Comments Diabetes Father Diabetes Mother Relation Status Comments Father Mother Social History Tobacco Use Types Packs/Day Years [...] high school, GED, job training, learning the Slovenian language, technical skills, or developing parenting skills)? [...] Sign Reading Time Taken Comments Blood Pressure 128/70 02/26/2025 9:33 AM EDT Pulse 57 02/26/2025 9:33 AM EDT Temperature 36.4 C (97.5 F) 02/26/2025 9:33 AM EDT Respiratory Rate 12 02/26/2025 9:33 AM EDT Oxygen Saturation 94% 02/26/2025 9:33 AM EDT Inhaled Oxygen Concentration - - Weight 94 kg (207 lb 3.2 oz) 02/26/2025 9:33 AM EDT Height 163 cm (5' 4.17 ) 02/26/2025 9:33 AM EDT Body Mass Index 35.37 02/26/2025 9:33 AM EDT Plan of Treatment Upcoming Encounters Date Type Department Care Team (Late st Contact Info) Description 09/08/2025 1:30 PM EST Office Visit [facility] [place] [facility] [address] [facility] [place] [address] Cristhian Baker MD [address] [place] [address] [email or web address] Health Maintenance Due Date Last Done Comments COLOGUARD 2003 FIT TEST 2003 FOBT 2003 SIGMOIDOSCOPY 2003 VIRTUAL COLONOSCOPY 2003 RSV VACCINE (1 - Risk 60-74 years 1-dose series) 2018 COLONOSCOPY 11/03/2024 11/04/2019, 06/27/2014 COLORECTAL CANCER SCREENING 11/03/2024 INFLUENZA VACCINE (#1) 2025 , 04/25/2023, 05/19/2022, Additional history exists COVID-19 VACCINE (4 - Pfizer risk 2023-) 03/10/2025 05/20/2024, 07/06/2021, 12/16/2020, Additional history exists BLOOD PRESSURE 08/29/2025 02/26/2025 DEPRESSION SCREENING 09/05/2025 09/05/2024 CREATININE LEVEL 02/26/2026 02/26/2025, 01/2025, 09/03/2024, Additional history exists POTASSIUM LEVEL 02/26/2026 02/26/2025, 01/2025, 09/03/2024, Additional history exists SCREENING FOR DIABETES 02/27/2028 , 02/26/2025, 08/07/2017, Additional history exists LIPID PANEL 09/03/2029 09/03/2024, 10/2023, 09/30/2022, Additional history exists Adult Td,Tdap Booster 05/20/2034 05/20/2024 , 01/15/2019, 07/10/2007 ZOSTER VACCINES Completed 01/08/2019, 10/20/2018 HEPATITIS C SCREENING Completed 07/27/2020, 021 PNEUMOCOCCAL VACCINES (50+ years) Completed 08/25/2023, 07/17/2018, 09/28/2012 SMOKING STATUS SCREENING (Once After 26 Yrs) Completed 02/26/2025 HEPATITIS A VACCINES Aged Out No long er eligible based on patient's age to complete this topic HIB VACCINES Aged Out No longer eligi ble based on patient's age to complete this topic MENINGOCOCCAL VACCINES (ACWY) Aged Out No longer eligible based on patient's age to complete this topic MENINGOCOCCAL VACCINES (B) Aged Out N o longer eligible based on patient's age to complete this topic Medical Devices Not on file Procedures Procedure Name Priority Date/Time Associated Diagnosis Comments COMPREHENSIVE METABOLIC PANEL Routine 02/26/2025 10:32 AM EDT Essential hypertension Chronic renal failure, stage 3a Impaired fasting glucose CBC AND DIFFERENTIAL Routine 02/26/2025 10:32 AM EDT Essential hypertension Chronic renal failure, stage 3a HEMOGLOBIN A1C Routine 02/26/2025 10:32 AM EDT Impaired fasting glucose OUTSIDE LAB Routine 01/21/2025 11:12 AM EDT OUTSIDE LAB Routine 01/21/2025 10:31 AM EDT OUTSIDE MR SPINE REPORT ONLY Routine 01/08/2025 3:14 PM EDT OUTSIDE IMAGING Routine 01/08/2025 3:08 PM EDT OUTSIDE XR SPINE REPORT ONLY Routine 12/30/2024 4:00 PM EDT LIPID PANEL Routine 09/03/2024 8:52 AM EST Pure hypercholesterolemia HEPATITIS C ANTIBODY, QUALITATIVE Routine 07/27/2020 11:20 AM EST Need for hepatitis C screening test HM COLONOSCOPY FOR RESULT ENTRY ONLY Routine 11/04/2019 OUTSIDE GLUCOSE FASTING Routine 02/13/2017 from Last 3 Months or Most Recently Relevant to Health Maintenance Results * (ABNORMAL) Comprehensive metabolic panel (02/26/2025 10:32 AM EDT) SODIUM 136 133 - 146 mmol/L [facility] POTASSIUM 4.4 3.3 - 5.1 mmol/L [facility] Comment:Specimen slightly he molyzed, result may be falsely elevated. CHLORIDE 99 96 - 108 mmol/L [facility] CO2 24 21 - 35 mmol/L [facility] BUN 24(H) 6 - 19 mg/dL [facility] CREATININE 1.40 0.5 - 1.5 mg/dL [facility] GLUCOSE 97 70 - 99 mg/dL [facility] ALBUMIN 4.4 3.9 - 4.8 g/dL [facility] TOTAL PROTEIN 7.6 6.5 - 8.0 g/dL [facility] CALCIUM 9.3 8.4 - 10.3 mg/dL [facility] ALKALINE PHOSPHATASE 71 39 - 117 U/L [facility] TOTAL BILIRUBIN 0.4 0.0 - 1.2 mg/dL [facility] AST 27 0 - 37 U/L [facility] ALT 21 0 - 40 U/L [facility] GLOBULIN 3.2 1 - 4.8 g/dL [facility] EGFR 55(L) >59 mL/min/1.7 3m2 [facility] Comment:Estimated glomerular filtration rate calculated using the CKD-EPI refit equation. ANION GAP 17 10 - 20 mmol/L [facility] Blood 02/26/2025 10:3 2 AM EDT 02/26/2025 10:38 AM EDT us Cristhian Baker MD LAB BLOOD ORDERABLES Final Re sult [facility] [address] [place] [address] * (ABNORMAL) CBC and differential (02/26/2025 10:32 AM EDT) WBC 6.63 4.00 - 11.00 K/uL [facility] RBC 4.55 4.50 - 5.90 M/uL [facility] HGB 12.8(L) 13.5 - 17.5 g/dL [facility] HCT 39.1(L) 41.0 - 53.0 % [facility] PLT 245 150 - 450 K/uL [facility] MCV 85.9 80.0 - 100.0 [facility] MCH 28.1 27.0 - 31.0 pg [facility] MCHC 32.7 32.0 - 36.0 g/dL [facility] RDW 13.9 11.5 - 14.5 % [facility] MPV 9.8 8.4 - 12.0 [facility] NRBC 0.00 0.00 /100 WBCs [facility] ABSOLUTE NRBC 0.00 0.00 K/uL [facility] DIFF METHOD Auto [facility] NEUTS 68.0 48.0 - 76.0 % [facility] LYMPHS 17.5(L) 18.0 - 41.0 % [facility] MONOS 8.0 4.0 - 11.0 % [facility] EOS 5.3(H) 0.0 - 5.0 % [facility] BASOS 0.9 0.0 - 1.5 % [facility] Granulocytes, immature (%) 0.3 0.0 - 0.9 % [facility] ABSOLUTE NEUTS 4.51 1.92 - 7.60 K/uL [facility] ABSOLUTE LYMPHS 1.16 0.72 - 4.10 K/uL [facility] ABSOLUTE MONOS 0.53 0.16 - 1.10 K/uL [facility] ABSOLUTE EOS 0.35 0.00 - 0.50 K/uL [facility] ABSOLUTE BASOS 0.06 0.00 - 0.15 K/uL [facility] Granulocytes, immature 0.02 0.00 - 0.09 K/uL [facility] Blood 02/26/2025 10:3 2 AM EDT 02/26/2025 10:38 AM EDT us Cristhian Baker MD LAB BLOOD ORDERABLES Final Re sult [facility] [address] [place] [address] * Hemoglobin A1c (02/26/2025 10:32 AM EDT) HEMOGLOBIN A1C 5.7 4.3 - 5.8 % [facility] Blood 02/26/2025 10:3 2 AM EDT 02/26/2025 10:38 AM EDT Cristhian Baker MD LAB BLOOD ORDERABLES Final Re sult [facility] [address] [place] [address] * Outside Lab (01/21/2025 11:12 AM EDT) Only the most recent of2 resultswithin the time period is included. Historical Provider LAB BLOOD ORDERABLES Ani l Result * Outside MR Spine Report Only (01/08/2025 3:14 PM EDT) Historical Provider IMG MR SPINE Final Res ult * Outside Imaging Report Only (01/08/2025 3:08 PM EDT) Historical Provider IMG XR CHEST Final Res ult * Outside XR Spine Report Only (12/30/2024 4:00 PM EDT) Historical Provider IMG XR SPINE Final Res ult * Lipid panel (09/03/2024 8:52 AM EST) HDL 40 mg/dL [facility] Comment: Interpretation <40 mg/dL: Low HDL cholesterol (major risk factor for CHD) Greater than or equal to 60 mg/dL: High HDL cholesterol ( negative risk factor for CHD) HDL - cholesterol is affected by a number of factors, e.g. smoking, excerise, hormones, sex and age. CHOLESTEROL 177 0 - 240 mg/dL [facility] TRIGLYCERIDES 115 30 - 160 mg/dL [facility] LDL 114 50 - 129 mg/dL [facility] Comment: LDL levels in terms of risk for coronary heart disease: <100 mg/dL: Optimal 100-129 mg/dL: Near or above optimal 130-159 mg/dL: Borderline high 160-189 mg/dL: High >190 mg/dL: Very High CARDIAC RISK RATIO 4.4 3.4 - 5.0 [facility] Blood 09/03/2024 8:52 AM EST 09/03/2024 8:58 AM EST Cristhian Baker MD LAB BLOOD ORDERABLES Final Re sult Performing Organization Address City/[facility]/ZIP Co de Phone Number [address] [address] * Hepatitis C antibody, qualitative (07/27/2020 11:20 AM EST) HCV NON-REACTIV E NON-REACTI VE [facility] Blood 07/27/2020 11:2 0 AM EST 07/27/2020 11:27 AM EST Cristhian Baker MD LAB BLOOD ORDERABLES Final Re sult Performing Organization Address City/[facility] Co de Phone Number [address] [address] * COLONOSCOPY FOR RESULT ENTRY ONLY (11/04/2019) Historical Provider HEALTH MAINTENANCE Final Result * Outside Glucose,Fasting (02/13/2017) Glucose, fasting - External 87 65 - 99 mg/dL Historical Provider LAB BLOOD ORDERABLES Ani l Result from Last 3 Months or Most Recently Relevant to Health Maintenance Insurance MEDICARE PART A & B [place] [facility] MEDICARE REPLACEMENT MEDICARE PART A & [place] [facility] MEDICARE REPLACEMENT MEDICARE PART A & B [facility] MEDICARE REPLACEMENT MEDICARE PART A & B [facility] MEDICARE REPLACEMENT MEDICARE PART A & B [place] [facility] MEDICARE REPLACEMENT MEDICARE PART A & B [place] [facility] MEDICARE REPLACEMENT MEDICARE PART A & B [facility] MEDICARE PART A & B [place] PART A & B HEALTH Care Teams Nursing Home Manager Relationship Specialty Start Date End Date Cristhian Baker MD [address] [place] [address] [email or web address] PCP - General Internal Medicine 08/03/17 Rory Martínez MD [address] [place] [address] Rheumatology 07/27/20 Daisha Foreman OD [address] [address] Optometry 07/27/20 Mao Contreras MD [address] [place] [address] [address] [place] [address] Gastroenterology 07/27/20 Additional Source Comments The information contained in this document represents components of the legal health record. It is not the complete legal health record.[facility]
--- NOTE | 2025-03-18 09:42 | HO.ANESPROP2 ---
Documented by User: Amanda Mohr NP 03/12/25 14:36 HPI - Anesthesia Eval Consult details Narrative: 64yo M for L2-3 Oblique Lumbar Interbody Fusion and Revision of posterior instrumentation, 03/18/25 Medically optimized per PCP s/p multiple surgeries without anesthesia issues, including ALIF No recent illness No CP/SOB with minimal walking d/t pain RA: Methotrexate, last dose preop 02/2025 / plaquinel GERD: ppi controls PMFSH Active Problems Active Problems: All Active Problems S/P spinal surgery (Acute) Lumbar stenosis (Acute) Back pain of lumbar region with sciatica (Acute) Past Medical History Medical History Renal calculi Rheumatoid arthritis Low back pain Left shoulder pain Seasonal allergies GERD (gastroesophageal reflux disease) HTN (hypertension) Family History Family history of problems with anesthesia: No Surgical History Surgical History History of lumbar spinal fusion Hx of esophagogastroduodenoscopy Hx of repair of left rotator cuff Hx of cystoscopy History of back surgery History of back surgery Hx of colonoscopy History of total bilateral knee replacement (TKR) S/P lumbar fusion History of Problems with Anesthesia: No Social History Social History (Updated 11/04/22 @ 11:18 by Shannan Mariscal RN) Household Members: Children Housing: House Are you a primary transition of care specialist to a significant other at home: No Do you presently have visiting nurse or other home services: No Patient Tobacco Use Status: Never used Tobacco Use of substances other than those prescribed or required for medical reasons: No Have you been hit, kicked, punched, or otherwise hurt by someone within the past year? If so, by whom?: No Spiritual Healthcare Practices: no Confucianism Healthcare Practices: no Cultural Healthcare Practices: no Are you DNR?: No Advance Directives: No ( is primary contact) Advance Directives on File: No Poor oral hygiene: No service: No Meds Allergies Allergy/AdvReac Type Severity Reaction Status Date / Time No Known Allergies (No Known Allergy Verified 03/18/25 08:21 Allergies*) Home Medications ?Medication ?Instructions ?Recorded ?Confirmed ?Last Taken ?Type amlodipine 5 mg tablet 5 mg PO QAM 11/04/22 03/18/25 03/18/25 06:30 History cholecalciferol (vitamin D3) 50 50 mcg PO QAM 11/04/22 03/18/25 03/26/23 History mcg (2,000 unit) capsule (Vitamin D3) folic acid 1 mg tablet 1 mg PO QAM 11/04/22 03/18/25 03/27/23 History hydroxychloroquine 200 mg tablet 400 mg PO QAM 11/04/22 03/18/25 03/26/23 History methotrexate sodium 2.5 mg tablet 20 mg PO MO 11/04/22 03/18/25 03/03/25 History Held on 03/28/23. Instructions: Resume on 04/27/23. Will see patient back in clinic & evaluate wound healing before restarting. omeprazole 40 mg capsule,delayed 40 mg PO QAM 11/04/22 03/18/25 03/18/25 06:30 History release chlorthalidone 25 mg tablet 25 mg PO Q2D 03/11/25 03/18/25 Unknown History lisinopril 40 mg tablet 40 mg PO DAILY 03/18/25 03/18/25 Unknown History Exam Height,Weight and Vital Signs: Height 5 ft 4.17 in Weight 95.8 kg Last Vital Signs Pulse 60 03/11/25 10:09 Resp 20 03/11/25 10:09 BP 157/75 H 03/11/25 10:09 Pulse Ox 97 03/11/25 10:09 O2 Del Method Room Air 03/11/25 10:09 Pertinent Lab Results Pertinent Lab Results: CBC and BMP 02/2025 OK (slight low H&H) Lab Results 03/11/25 Range/Units 10:45 Blood Type A Positive Antibody Screen NEGATIVE Narrative Narrative: EKG 03/2025 Vent. Rate : 59 BPM Atrial Rate : 59 BPM P-R Int : 208 ms QRS Dur : 104 ms QT Int : 392 ms P-R-T Axes : 32 -39 14 degrees QTcB Int : 388 ms Sinus bradycardia with Premature supraventricular complexes Left axis deviation Minimal voltage criteria for LVH, may be normal variant ( R in aVL ) Abnormal ECG When compared with ECG of 07-Nov-2022 14:38, Premature supraventricular complexes are now Present QRS axis Shifted left Airway Mallampati Class: II TM Dist: >3cm Neck ROM: Full Loose/Missing/Broken Teeth: No Heart: RRR Lungs: CTAB Assessment and Plan Assessment Anesthesia Assessment: Anesthesia Plan Discussed and PAT Visit Final Anesthetic Review Family History of Problems with Anesthesia: No History of Problems with Anesthesia: No Documented by User: Linh Fuentes, DO 03/18/25 09:43 [facility] Past Medical History Medical History Renal calculi Rheumatoid arthritis Low back pain Left shoulder pain Seasonal allergies GERD (gastroesophageal reflux disease) HTN (hypertension) Family History Family history of problems with anesthesia: No Surgical History Surgical History History of lumbar spinal fusion Hx of esophagogastroduodenoscopy Hx of repair of left rotator cuff Hx of cystoscopy History of back surgery History of back surgery Hx of colonoscopy History of total bilateral knee replacement (TKR) S/P lumbar fusion History of Problems with Anesthesia: No Social History Social History (Updated 11/04/22 @ 11:18 by Shannan Mariscal RN) Household Members: Children Housing: House Are you a primary transition of care specialist to a significant other at home: No Do you presently have visiting nurse or other home services: No Patient Tobacco Use Status: Never used Tobacco Use of substances other than those prescribed or required for medical reasons: No Have you been hit, kicked, punched, or otherwise hurt by someone within the past year? If so, by whom?: No Spiritual Healthcare Practices: no Confucianism Healthcare Practices: no Cultural Healthcare Practices: no Are you DNR?: No Advance Directives: No ( is primary contact) Advance Directives on File: No Poor oral hygiene: No service: No Meds Allergies Allergy/AdvReac Type Severity Reaction Status Date / Time No Known Allergies (No Known Allergy Verified 03/18/25 08:21 Allergies*) Home Medications ?Medication ?Instructions ?Recorded ?Confirmed ?Last Taken ?Type amlodipine 5 mg tablet 5 mg PO QAM 11/04/22 03/18/25 03/18/25 06:30 History cholecalciferol (vitamin D3) 50 50 mcg PO QAM 11/04/22 03/18/25 03/26/23 History mcg (2,000 unit) capsule (Vitamin D3) folic acid 1 mg tablet 1 mg PO QAM 11/04/22 03/18/25 03/27/23 History hydroxychloroquine 200 mg tablet 400 mg PO QAM 11/04/22 03/18/25 03/26/23 History methotrexate sodium 2.5 mg tablet 20 mg PO MO 11/04/22 03/18/25 03/03/25 History Held on 03/28/23. Instructions: Resume on 04/27/23. Will see patient back in clinic & evaluate wound healing before restarting. omeprazole 40 mg capsule,delayed 40 mg PO QAM 11/04/22 03/18/25 03/18/25 06:30 History release chlorthalidone 25 mg tablet 25 mg PO Q2D 03/11/25 03/18/25 Unknown History lisinopril 40 mg tablet 40 mg PO DAILY 03/18/25 03/18/25 Unknown History Exam Exam Date and Time: 03/18/25 0942 Height,Weight and Vital Signs: Height 5 ft 4.17 in Weight 95.8 kg Last Vital Signs Pulse 60 03/11/25 10:09 Resp 20 03/11/25 10:09 BP 157/75 H 03/11/25 10:09 Pulse Ox 97 03/11/25 10:09 O2 Del Method Room Air 03/11/25 10:09 Vital Signs Pulse Rate 60 03/11/25 10:09 Respiratory Rate 20 03/11/25 10:09 Blood Pressure 157/75 H 03/11/25 10:09 Pulse Oximetry 97 03/11/25 10:09 Oxygen Delivery Method Room Air 03/11/25 10:09 Pulse Rate 60 03/11/25 10:09 Respiratory Rate 20 03/11/25 10:09 Blood Pressure 157/75 H 03/11/25 10:09 Pulse Oximetry 97 03/11/25 10:09 Oxygen Delivery Method Room Air 03/11/25 10:09 Airway Mallampati Class: II TM Dist: <=3cm Neck ROM: Full Loose/Missing/Broken Teeth: No (patient denies any loose or broken teeth) Heart: S1S2 Assessment and Plan Assessment Anesthesia Assessment: Anesthesia Plan Discussed and Chart Reviewed Final Anesthetic Review Family History of Problems with Anesthesia: No History of Problems with Anesthesia: No NPO: Yes ASA Class: II Final Preanesthetic Review: No Changes in Pt Med Stat, Meds/Allgs Chart Reviewed, Consent Obtained/Reviewed and Anes Risks/Benef Reviewed Patient Risk: Low Procedure Risk: Intermediate Anesthetic Plan Anesthetic Plan: GA and Agree w/ Assess. and Plan Disposition: Standard PACU
--- NOTE | 2025-03-18 09:58 | MHC.SHP ---
Pre-Procedural Eval Section A - 24 Hr Update-Section A only Date of Service: 03/18/25 The patient is an INPATIENT: No Changes since office visit: No Cold of Flu in the past 2 weeks, No New Medical Problems, No Changes in Medication and No Patient answered all questions The patient has been examined within 24 hours of the surgical procedure. The History & Physical has been completed within 30 days and I have reviewed it.: No Section B - Complete if H&P > 30 days Chief Complaint: L2-3 fusion surgery Allergies: Allergies Allergy/AdvReac Type Severity Reaction Status Date / Time No Known Allergies (No Known Allergy Verified 03/18/25 08:21 Allergies*) Review of Systems Sugical H&P ROS: Negative: Constitution, Cardiovascular, Respiratory, Neurological, Psychiatric, Hem-Onc, Allergic/Immunologic, Gastrointestinal, Genitourinary, Musculoskeletal, Integumentary, Endocrine and Eyes/Ears/Nose/Throat Exam Surgical H&P Exam: Normal: HEENT, Normal: Heart, Normal: Lungs, Normal: Extremities, Normal: Abdomen, Normal: Skin and Normal: Neurological (awake, alert,oreinted x 3 ) Plan Diagnosis/Plan: Unchanged L2-3 Oblique lumbar interbody fusion with revision of posterior instrumentation Time Spent With Patient Time: Total time managing care of this patient today _6___ minutes.
--- NOTE | 2025-03-18 12:40 | W.PM.OPN ---
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 I have explained the nature, purpose and benefits of the operation. I have discussed the risks and benefit of the operation including possible complications or adverse events with patient/family. Alternative(s) were discussed with the patient with their relative benefits and risks as well as the consequences of not accepting the operation were included in obtaining consent. Surgeon: JIA LAMAS MD, PHD Procedure Assisted By: bud Doss Description of Procedure This patient is status post L4-S1 lumbar fusion. He presented with recurrent syndrome with neurogenic claudication. An MRI shows adjacent degenerative disc disease L2-3 with central stenosis. The patient was offered an oblique lumbar interbody fusion L2-3 and revision of posterior instrumentation. The procedure and complications were explained. The patient was consented. The patient was brought to the operating room and endotracheally intubated. The patient was turned in a lateral position with the left side up. Prep and drape was done followed by timeout. A small incision was made in the left lower abdominal quadrant. The muscle fascia was opened after which the 3 muscle layer was split to enter the retroperitoneal space. Dilators were docked in the anterior one third of the L2-3 disc space followed by a retractor. The retractor was opened. The L2-3 disc space was exposed. An annulotomy was done after which an elevator Johnson was used to release the disc material from its endplates and to perforate the contralateral side. A partial discectomy was done. An 10 and 12 height trial implant was inserted. The discectomy was completed. The endplates were prepared. An 12 x 50 mm with 0 degree lordosis 4 web cage filled with allograft was inserted into the disc space under fluoroscopic guidance. This resulted in increase of disc height and foraminal height. The retractor was removed. Hemostasis was done. The incision was closed in 2 layers. Steri-Strips used to approximate incision. An OpSite with Tegaderm was used to cover the incision. This marked first part of the procedure. The patient was turned prone on the Deny spine table. 2C arms were installed for fluoroscopy. Prep and drape was done followed by a second timeout. The previous 2 paramedian incisions were opened. The L4-5 instrumentation was exposed. The locking caps were removed after which the sextant screws were taken out. The L4 screw was replaced by a 7.5 x 45 mm screw bilaterally. Then the following steps were taken for the bilateral L2 pedicles. A pediguard tap was used to create a transpedicular trajectory into the vertebral body. A K wire was placed. A specially designed instrument was advanced over the K wire to decorticate the posterolateral gutter in preparation for the posterolateral fusion. A pedicle screw was advanced over the K wire and the K wire was removed. Two screws with a diameter of 6.5 x 45 mm were placed in the bilateral L2 pedicles. Pedicle screws were connected with 50 mm haydee bilaterally and locked down with locking caps. The extension towers were removed. The posterolateral gutter was filled with allograft to complete the posterolateral L2-3 fusion Hemostasis was done and the incision was closed in 2 layers. Steri-Strips were used to approximate the incision. An OpSite with tegaderm was used to cover the incision. All sponge and needle counts were correct. Patient was extubated and transferred in stable is to recovery room. Anesthesia: General Estimated Blood Loss (ml): 40 Duration of Surgery: 2 hours Complications: None Postoperative Plan: Admit to inpatient for clinical observation
--- NOTE | 2025-03-18 15:05 | PHA.MEDREC ---
Addendum entered by Roselia Alanis RPh 03/18/25 15:38: Reviewed by pharmacist Original Note: Pharmacy Consult ? Medication Reconciliation Pharmacy has reviewed the medication reconciliation done by nursing. Claims match med list.
[2025-03-18] MEDS: oxyCODONE HCl Immed Release 5 MG TABLET 10 MG PO (19:49)
[2025-03-19] MEDS: oxyCODONE HCl Immed Release 5 MG TABLET 10 MG PO ×3 (01:31→10:59)
--- NOTE | 2025-03-19 01:35 | PC.NURSE ---
Large blood staining noted on lower back dressing. New ABD pad applied, 2 small dressings underneath left uninterrupted. Patient is using IS, was ambulating in hallway. Adequate pain management. LLQ small dressing with scant drainage. Ice packs applied to back as needed.
[2025-03-19 03:15] VITALS: BP 121/66; PULSE 62; RESP 16; TEMP 36.7; O2SAT 93
[2025-03-19 07:21] VITALS: BP 134/68; PULSE 65; RESP 18; TEMP 36.1; O2SAT 96
--- NOTE | 2025-03-19 08:06 | HO.NEUROPN_ITS ---
Neurosurgery Operative Note Date of Service: 03/19/25 Narrative: POD: 1 Procedure: L2-3 OLIF Tomás is a pleasant 64-year-old male who underwent L2-[address] Wilkinson yesterday. He was seen sitting upright in bed on 3 [address] this morning. He reports that overall he is doing well, however he did struggle with pain control in the immediate postoperative period last night. He does feel better today, however still reports some low back pain. He rates some concerns about pote ntially being discharged home today as he will not have help at home until tomorrow. He reports that he is tolerating his current diet and voiding independently without catheterization. Afebrile, vital signs stable. Patient is well appearing in NAD. No new neurological deficits. Back and lateral dressings have some staining without signs of hematoma. No active sanguineous drainage. Area is dry. Plan: Pleasant 64-year-old male who underwent L2-[address] Wilkinson yesterday. He still reports some continued low back pain, and raise several concerns regarding social supports at home after being discharged. We would like to see him work with physical therapy today, and see how he is feeling later this afternoon. If he is still reporting difficulties with pain control we may have end-stage until tomorrow morning. Zane Wilkinson MD,PhD [facility]
--- NOTE | 2025-03-19 09:21 | HO.POSTANES ---
Post Anesthesia Evaluation Post Anesthesia Evaluation Date of Service: 03/19/25 Vital Signs: Vital Signs Temp Pulse Resp BP Pulse Ox O2 Del Method 03/19/25 07:21 97.0 F 65 18 134/68 96 Room Air 03/19/25 03:15 98.1 F 62 16 121/66 93 Room Air 03/18/25 23:37 97.3 F 61 16 116/65 94 Room Air Anesthesia: General Mental Status: Awake Pain Control: Satisfactory Nausea/Vomiting: None Hydration: Adequate Anesthesia-Related Issues: No Anes. Related Issues
--- NOTE | 2025-03-19 10:56 | MHC.CM.PN ---
PT L;MARIANNE WITH DGTER HAS OWN RIDE HOME IS INDEPEDENT DC PLAN HOME NO SERVICES
[2025-03-19 15:10] VITALS: BP 127/58; PULSE 67; RESP 18; TEMP 36.4; O2SAT 97
[2025-03-19 19:29] VITALS: BP 125/69; PULSE 60; RESP 18; TEMP 36.2; O2SAT 97
[2025-03-20 03:24] VITALS: BP 121/63; PULSE 57; RESP 18; TEMP 36.2; O2SAT 97
[2025-03-20 07:38] VITALS: BP 123/60; PULSE 55; RESP 17; TEMP 36.6; O2SAT 94
--- NOTE | 2025-03-20 09:32 | PM.DS ---
DS: Providers Provider Date of Service: 03/20/25 Date of admission: 03/18/25 08:13 Date of discharge: 03/20/25 Primary care physician: Cristhian Baker MD DS: Summary Time Attestation Discharge Coordination Time (in mins): 12 Quality: Safe Use of Opioids Does Pt have an Active Cancer Diagnosis on the Problem List?: No Quality: Stroke Does the patient have a stroke diagnosis?: No Physical Exam Vital Signs: Vital Signs: Last Vital Signs Temp 97.9 F 03/20/25 07:38 Pulse 55 03/20/25 07:38 Resp 17 03/20/25 07:38 BP 123/60 03/20/25 07:38 Pulse Ox 94 03/20/25 07:38 O2 Del Method Room Air 03/20/25 07:38 O2 Flow Rate 2 03/18/25 14:13 BMI result Body Mass Index 37.5 DS: Data Data Completed and Pending Completed studies during hospitalization [Text1]: Procedures Excision of Lumbosacral Disc, Open Approach (03/27/23) Fusion of Lumbosacral Joint with Interbody Fusion Device, Anterior Approach, Anterior Column, Open Approach (03/27/23) Insertion of Interspinous Process Spinal Stabilization Device into Lumbosacral Joint, Open Approach (03/27/23) Discharge Plan Discharge Anticipated Discharge Date/Time: 03/20/25 09:32 Patient Disposition: Home, Self-Care Discharge Diagnosis: s/p L2-3 OLIF Referrals: Cristhian Baker MD [Primary Care Provider, Internal Medicine] - 1 Week Discharge Medications: New oxycodone 5 mg tablet See Rx Instructions .ROUTE .COMPLEX PRN (Reason: pain) Qty: 30 0RF Rx Instructions: Take 1-2 tablets by mouth every 4 hours; Partial Fill upon patient request. docusate sodium 100 mg capsule 100 mg PO BID PRN (Reason: constipation) Qty: 14 0RF Continued amlodipine 5 mg tablet 5 mg PO QAM omeprazole 40 mg capsule,delayed release(DR/EC) 40 mg PO QAM folic acid 1 mg tablet 1 mg PO QAM hydroxychloroquine 200 mg tablet 400 mg PO QAM cholecalciferol (vitamin D3) [Vitamin D3] 50 mcg (2,000 unit) Capsule 50 mcg PO QAM chlorthalidone 25 mg tablet 25 mg PO Q2D lisinopril 40 mg tablet 40 mg PO DAILY Held methotrexate sodium 2.5 mg tablet 20 mg PO MO Hold Instructions: Resume on 04/10/25. Hold until 1st postop visit, discuss restarting with your prescriber Discharge Orders: Discharge Order (Routine); Ordered 03/20/25 Ordered By: Zane Sanches Diet: Advance to usual diet Activity on Discharge: As tolerated Stand Alone Forms: Patient Portal Discharge page Print Language: Haitian Activity Restrictions/Additional Instructions: After your spinal surgery we ask you to observe the following restrictions/guidelines: Activity: It is normal to feel some discomfort as you increase your activity, but that will improve with time. We ask you avoid heavy lifting or acitivities that cause pain. As a general rule, 8lbs is a safe limit for lifting right after surgery. Walk as much as you feel comfortable but not to exhaustion. You will feel extra tired the first few days after surgery. Stay well hydrated. It is OK to walk up and down stairs You may return to driving when you are off narcotics (such as vicodin, oxycodone, dilaudid, etc), and you are back to normal functional capacity. If you have any concerns please check with office before driving. Return to work is specific to each patient and each surgery, so please speak with your doctor/PA at first follow up. Please bring paperwork such as FMLA at that time if you need it filled out. Medications: Please hold your methotrexate until you see us for her 1st postoperative visit. Please call your methotrexate prescriber and discuss when you are able to restart this medication after surgery. We recommend you take 1,000mg Tylenol every 8 hours for the first few weeks after surgery, if you do not have any liver issues and can tolerate this medication. Do not exceed 4,000mg daily. We will give you a short supply of narcotics after surgery (usually one weeks worth). If you need more please call the office but do not use more than prescribed. You will need to give our office 48 hours notice if you need narcotics refilled and we do not fill narcotics on weekends or evenings. If you are on a narcotic, it is a good idea to take a stool softener such as colace or senna to avoid constipation If you take blood thinner such as aspirin, Plavix, Coumadin, Effient, Eliquis etc for conditions such as Afib, DVT, Pulmonary embolus, coronary disease, stents etc please speak with your surgeon about specific details as to when you can resume these medications. You can resume NSAIDs on post op day 1 (eg: Motrin, Naproxen, etc). Follow up: Please call the office, , after surgery to arrange a 3 week follow up for wound check. Wound Care: You may remove your dressing on the first day after surgery. ?You may ?leave open to air. Please do not remove the steri strips underneath. they will fall off on their own in one week. IT IS NORMAL FOR THE WOUND TO OOZE OR BE BLOODY FOR A FEW DAYS AFTER SURGERY. ?IF THIS HAPPENS JUST PLACE NEW DRESSING OVER IT TO AVOID STAINING CLOTHES. You may shower on post op day # 1 We ask that you do not let the water soak the wound. If it does get wet, just towel dry lightly. Please do not scrub your incision or place any type of chemical/ointment on the wound. No tub baths, pools or jacuzzis for one month. If you have any leaking or redness from your wound, or fevers, please call the office. Care Plan Goals: Return to normal activity as tolerated Health Concerns: None Plan of Treatment: Follow-up in clinic in 2-3 weeks Assessment: POD: 2 Procedure: L2-3 OLIF Tomás is a pleasant 64-year-old male who underwent L2-[address] Wilkinson 2 days ago. He was seen sitting upright in bed on [address] today. He reports that overall he is doing much better than he was prior to surgery. He feels as though his pain is much better controlled than it was yesterday. He has been up out of bed walking to the bathroom in ambulating ad gt. He is tolerating his current diet. He states that he was also seen by Dr. Wilkinson this morning who is very happy with the progress that he has made thus far postoperatively. Afebrile, vital signs stable. Patient is well appearing in NAD. No new neurological deficits. Back and lateral dressings have some staining without signs of hematoma. Plan: Pleasant 64-year-old male who underwent L2-[address] Wilkinson 2 days ago. He meets medical criteria to be discharged home today. I will send in a prescription for oxycodone and docusate sodium to the pharmacy here at [facility]. He should follow up with us in 2-3 weeks in clinic. This was discussed with the attending neurosurgeon Dr. Wilkinson who is in agreement. Zane Wilkinson MD,PhD [facility]
--- NOTE | 2025-03-20 10:29 | MHC.CM.PN ---
PT TO DC HOME TODAY WITH NO SERVICES VIA FAMILY TRANSPORT
[2025-03-20 10:36] VITALS: BP 134/66; PULSE 59; RESP 18; TEMP 36.3; O2SAT 95
== END 2025-03-20 11:22 | disposition home or self-care (01) | DRG 451 ==
LOC: HO.SSSA 08:17 → HO.S3 14:14
PROVIDERS: Neurological Surgery; Admitting Provider Physician Assistant; PCP Internal Medicine; Visit Provider Physician Assistant
PROC: 0SG00A0 Fusion of Lumbar Vertebral Joint with Interbody Fusion Device, Anterior Approach, Anterior Column, Open Approach (ICD-10-PCS; principal; 2025-03-18 10:00)
DX: M48.062 Spinal stenosis, lumbar region with neurogenic claudication (principal); M06.9 Rheumatoid arthritis, unspecified; Z79.631 Long term (current) use of antimetabolite agent; Z79.899 Other long term (current) drug therapy
CPT/HCPCS: 86850; 86900; 86901; 93005; 97161; C1713; J0131; J0665; J0690; J1100; J1171; J1885; J2003; J2250; J2405; J2704; J3010; L8699

== ENCOUNTER → 2025-03-18 08:13 | Outpatient (BNV) | payer MEDICARE, MEDICAID, SELFPAY | PROVIDERS: Admitting Provider Physician Assistant; PCP Internal Medicine; Visit Provider Neurological Surgery | DX: M48.062 Spinal stenosis, lumbar region with neurogenic claudication (principal) | CPT/HCPCS: 20930; 22558; 22612; 22840; 22853; 99024; 99499 ==

== ENCOUNTER 2025-03-28 10:54 | Outpatient (REF) | payer MEDICARE, MEDICAID, SELFPAY ==
--- OUTSIDE RECORDS SUMMARY | 2025-03-26 06:30 | XMS_ITS ---
Author Organization [facility] Address [address] [place] [address] Care Team Providers Care Outside Installation Machinist Name Role Phone Samuel FELTON, Cristhian Primary Care Provider Mary Contreras Mao Mata [phone] REASON FOR VISIT screening, hx polyps,fam hx colon ca Encounters Encounter Location Date Provider Diagnosis [facility] [place] [address] [place] [id number] 03/26/2025 Mao Contreras Plan Of Treatment Next Appt Details Provider Name:Mao Key Contreras , 06/02/2025 09:30:00 AM, [address] [place] [address], [id number], Progress Notes * MONTES, ANJELENAOB: [birth year] (64 yo M)Acc No.[id number]:03/26/2025 COLON WITH MAC Patient: Anna JJBarb RUDI Provider: Ajay Contreras MD :1960 A ge:64 Y S ex:Male Date:03/26/2025 Address:[address] [place], [place] [id number] Pcp:Cristhian Baker MD Subjective: * Chief Complaints: [...] 0 03/26/2025 Generated for Kaiden dickey/Halley/Christian on: 0 03/28/2025 12:25 PM EDT
--- OUTSIDE RECORDS SUMMARY | 2025-03-28 12:26 | XMS_ITS | Patient Health Record ---
Author Organization [facility] Address [address] [place] [address] Care Team Providers Care Quill Skinner Name Role Phone Cristhian Baker MD Primary Care Provider Mao Powers Unavailable [phone] Allergies No Known Allergies Reason For Referral [...] Problem Status W/U Status Risk Notes Problem [id number] Encounter for screening for malignant neoplasm of colon (Z12.11) Active confirmed Problem 676685462 History of adenomatous polyp of colon (Z86.010) Active confirmed Problem 615813235 Gastroesophageal reflux disease without esophagitis (K21.9) Active confirmed Problem Family History of Cancer of Colon (Situation) (593635146) Family history of colon cancer (Z80.0) Active confirmed Problem 272790144 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 Vital Signs Temperature 98.0 degrees Fahrenheit 12/26/2024 Blood pressure diastolic 01 mm Hg 12/26/2024 Height 64.5 in 12/26/2024 Blood pressure systolic 001 mm Hg 12/26/2024 Weight 207.8 lbs 12/26/2024 BMI 35.11 kg/m2 12/26/2024 Procedures Procedure Date Ordered Date Performed Result Body Sit e COLONOSCOPY 12/26/2024 N/A Encounters Encounter Location Date Provider Diagnosis [facility] [address] [place] [phone] 12/26/2024 Mao Contreras Encounter for screen ing for malignant neoplasm of colon Z12.11 ; Eosinophilic gastroenteritis K52.81 ; Gastroesophageal reflux disease without esophagitis K21.9 ; History of adenomatous polyp of colon Z86.010 and Family history of colon cancer Z80.0 [facility] [address] [place] [phone] 03/03/2025 Mao Contreras Assessments Encounter Date Diagnosis (ICD Code) [...] COLONOSCOPY 06/25/2019 Next Appt Details Provider Name:Mao Conterras , 06/02/2025 09:30:00 AM, [address] [facility] , [place], [place], [id number], Insurance Providers Payer Name Payer Address Payer Phone Subscriber Number Group Number Insured Name Patient Relationship to Insured Coverage Start Date Coverage End Date AARP Medicare Advantage Plan [address] [address] [place] [address] [id number] RUDI CALLOWAY Self - patient is the insured MEDICAID OF [facility] [address] [place] [address] [id number] RUDI CALLOWAY Self - patient is the [...] of prednisone with good results; flareup in [place] in May, 2019 treated with oral prednisone with good relief. As of the December 2024 office visit he was last treated for a flareup of that in 2021 with prednisone Denies [place],DM,CVA,Lung disease,renal dise ase Negative colonoscopy in 06/2014 Colonoscopy in 05/2019 in [facility] with a small tubular adenoma removed-- incomplete to ascending colon and limited due to prep HTN Negative colonoscopy in 10/2019 Surgical History Surgery Date(Month/Year) Bilateral knee replacements in 12/2014 Back surgery x 4--most recent was 2022 w sushma Wilkinson
== END 2025-03-28 10:55 | disposition home or self-care (01) ==
LOC: HO.LAB 10:54
PROVIDERS: PCP Internal Medicine; Visit Provider Physician Assistant
DX: T81.49XA Infection following a procedure, other surgical site, initial encounter (principal); M48.061 Spinal stenosis, lumbar region without neurogenic claudication; Z98.1 Arthrodesis status
CPT/HCPCS: 87070; 87077; 87186; 87205; 99212

== ENCOUNTER 2025-03-28 10:54 | Outpatient (AMB) | payer MEDICARE, MEDICAID, SELFPAY ==
--- NOTE | 2025-03-28 11:09 | HO.SPINEOV ---
Intake Visit Reasons: incision check Intake Note: Mr. Steinberg is here today for an incision check. Facilities Operations Technician Required: No Allergies No Known Allergies (No Known Allergies*) Allergy (Verified 03/28/25 11:10) Assessment & Plan Assessment & Plan (1) Lumbar stenosis: Code(s): M48.061 - Spinal stenosis, lumbar region without neurogenic claudication Category: Medical Plan Mr Steinberg had extension of his lumbar fusion to L2-3 last week. His noticed that his left posterior stab incision was leaking some. He came in have it evaluated. He is having no pain and no fevers. No lower extremity symptoms. On exam his wound on the left still had a few Steri-Strips over it. I took them off and there was some redness and some dehiscence of the upper edge of the incision. There was no obvious opening to any deeper tissue. There was some sloughing of what looked like serous or mildly purulent fluid. I pressed on the wound and was able to express some small amount of whitish looking thick fluid from the bottom of the wound where there was a tiny pinhole opening. I sent that off for Gram stain and culture. The outside the wound did not look red or inflamed. There was a seroma underneath and after conferring with Dr. Wilkinson I cut into that and expressed all of the seroma that I could. It appeared to be superficial, there was no deep component to the wound collection. All the edges of the wound were maintained outside of the small portion in the upper edge. I gave him some dressings and tape to keep it covered. He can wash and clean the area daily. I called him in Bactrim DS for 10 days. I will see him back next week. Dr. Wilkinson has been updated, saw the wound and agreed with the plan. Phu Wilkinson MD, PhD [facility] Orders: Orders Routine Culture w Gram Stain Today T81.49XA - Infection following a procedure, other surgical site, initial encounter Medications: New sulfamethoxazole-trimethoprim 800-160 mg (Bactrim DS) 1 tab PO BID 20 tabs 0RF 10 days Coding Level of Care Code Global (90187) Diagnoses Lumbar stenosis M48.061
--- OUTSIDE RECORDS SUMMARY | 2025-03-28 11:34 | XMS_ITS | Encounter Summary ---
Author Organization [facility] Address [address] [place] [address] Phone Care Team Providers Care Machine Spreader Name Role Phone Cristhian Baker MD Primary Care Provider [phone] Encounter Details Date Type Department Care Team (Late Contact Info) Description 11/22/2023 Documentation Only [facility] [address] [place] [address] Brandyn Wren [address] [place] [phone] Social History Tobacco Use Types Packs/Day Years [...] Visit [facility] [address] [place] [address] Fredrick Danielle MD [address] [place] [address] [place] [address] documented as of this encounter Visit Diagnoses Not on filedocumented in this encounter Care Teams Machine Spreader Relationship Specialty Start Date End Date Cristhian Baker MD [address] [facility] [place] [address] PCP - General Internal Medicine 11/22/23 documented as of this encounter
--- OUTSIDE RECORDS SUMMARY | 2025-03-28 11:34 | XMS_ITS | Encounter Summary ---
Author Organization [facility] Address [email or web address] [facility] [address] [place] [address] Phone Care Team Providers Care Road Freight Brake Coupler Name Role Phone Cristhian Baker MD Primary Care Provider [phone] Rory Martínez MD Unavailable Daisha Foreman OD Unavailable [phone] Mao Contreras MD Unavailable Encounter Details Date Type Department Care Team (Late st Contact Info) Description 03/18/2025 Orders Only [facility] Internal Medicine [address] [place] [address] Provider, MD Yolie [address] [place] [address] Social History Tobacco Use Types [...] high school, GED, job training, learning the Kazakh language, technical skills, or developing parenting skills)? [...] Description 09/08/2025 1:30 PM EST Office Visit [facility] Internal Medicine [address] [place] [address] Cristhian Baker MD [address] [place] [address] [email or web address] documented as of this encounter Procedures Procedure Name Priority Date/Time Associated Diagnosis Comments OUTSIDE IMAGING Routine 03/18/2025 2:24 PM EDT documented in this encounter Results * Outside Imaging Report Only (03/18/2025 2:24 PM EDT) us Historical Provider IMTushar XR CHEST Final Res ult documented in this encounter Visit Diagnoses Not on filedocumented in this encounter Additional Health Concerns Assessment Noted Time PHQ-2 Depression Total Score: 0 09/05/19 25 9:29 AM EST documented as of this encounter Care Teams Road Freight Brake Coupler Relationship Specialty Start Date End Date Cristhian Baker MD [address] [place] [address] PCP - General Internal Medicine 08/03/17 Rory Martínez MD [address] [place] [address] Rheumatology 07/27/20 Daisha Foreman OD [address] [address] Optometry 07/27/20 Mao Contreras MD [address] [place] [address] Gastroenterology 07/27/20 documented as of this encounter Additional Source Comments The information contained in this document represents components of the legal health record. It is not the complete legal health record.[facility]
--- OUTSIDE RECORDS SUMMARY | 2025-03-28 11:34 | XMS_ITS | Clinical Summary ---
Author Organization [facility] Address [address] [facility] [address] [place] [address] Phone Care Team Providers Care Tandem Mill Roller Name Role Phone Cristhian Baker MD Primary Care Provider [phone] Rory Martínez MD Unavailable Daisha Foreman OD Unavailable Mao Contreras MD Unavailable [phone] Allergies No known active allergies Medications methotrexate [...] Encounters Date Type Department Care Team Description 03/18/2025 Orders Only [facility] Internal Medicine [address] [place] [address] Provider, MD Yolie 02/26/2025 10:28 AM EDT - 02/26/2025 11:59 PM EDT Hospital Encounter [facility] [address] [place] [address] Cristhian Baker MD Discharge Disposition: Home or Self Care 02/26/2025 9:30 AM EDT Office Visit [facility] Internal Medicine [address] [facility], [place] [address] Cristhian Baker MD Essential hypertension (Primary Dx); Chronic renal failure, stage 3a; Impaired fasting glucose 02/10/2025 Telephone [facility] Internal Medicine [address] [facility], [place] [address] Cristhian Baker MD Review of Orders 01/31/2025 Orders Only [facility] Internal [facility] [address] [facility], [place] [address] Yolie Moreno MD 01/28/2025 Orders Only [facility] Internal [facility] [address] [facility], [place] [address] Yolie Moreno MD 01/13/2025 Telephone [facility] Internal [facility] [address] [facility], [place] [address] Cirsthian Baker MD 01/13/2025 Refill [facility] Internal [facility] [address] [facility] [place] [address] Cristhian Baker MD Medication Refill 01/09/2025 Orders Only [facility] Internal [facility] [address] [facility] [place] [address] Yolie Moreno MD 12/30/2024 Orders Only [facility] Internal Medicine [address] [facility] [place] [address] ProviderYolie MD from Last 3 Months Immunizations Immunization Administration Dates Next Due COVID-19 (Pre) Moderna Vaccine Adult Booster/6-11yrs Primary 07/06/2021 COVID-19 [...] high school, GED, job training, learning the Mozambican language, technical skills, or developing parenting skills)? [...] Description 09/08/2025 1:30 PM EST Office Visit [facility] Internal Medicine [address] [facility], [place] [address] Cristhian Baker MD [address] [place] [address] [email or web address] Health Maintenance Due Date Last Done Comments COLOGUARD 2003 FIT TEST 2003 FOBT 2003 SIGMOIDOSCOPY 2003 VIRTUAL COLONOSCOPY 2003 RSV VACCINE (1 - Risk 60-74 years 1-dose series) 2018 COLONOSCOPY 11/03/2024 11/04/2019, 06/27/2014 COLORECTAL CANCER SCREENING 11/03/2024 INFLUENZA VACCINE (#1) 2025 , 04/25/2023, 05/19/2022, Additional history exists COVID-19 VACCINE (4 - Pfizer risk 2023- season) 2025 05/20/2024, 07/06/2021, 12/16/2020, Additional history exists BLOOD PRESSURE 08/29/2025 02/26/2025 DEPRESSION SCREENING 09/05/2025 09/05/2024 CREATININE LEVEL 02/26/2026 02/26/2025, 01/2025, 09/03/2024, Additional history exists POTASSIUM LEVEL 02/26/2026 02/26/2025, 05/0 01/2025, 09/03/2024, Additional history exists SCREENING FOR DIABETES 02/27/2028 , 02/26/2025, 08/07/2017, Additional history exists LIPID PANEL 09/03/2029 09/03/2024, 0 10/2023, 09/30/2022, Additional history exists Adult Td,Tdap [...] OUTSIDE IMAGING Routine 03/18/2025 2:24 PM EDT COMPREHENSIVE METABOLIC PANEL Routine 02/26/2025 10:32 AM [...] Recently Relevant to Health Maintenance Results * Outside Imaging Report Only (03/18/2025 2:24 PM EDT) us Historical Provider IMTushar XR CHEST Final Res ult * (ABNORMAL) Comprehensive metabolic panel (02/26/2025 10:32 AM EDT) SODIUM 136 133 - 146 mmol/L [facility] POTASSIUM 4.4 3.3 - 5.1 mmol/L [facility] Comment:Specimen slightly he molyzed, result may be falsely elevated. CHLORIDE 99 96 - 108 mmol/L [facility] CO2 24 21 - 35 mmol/L [facility] BUN 24(H) 6 - 19 mg/dL [facility] CREATININE 1.40 0.5 - 1.5 mg/dL [facility] GLUCOSE 97 70 - 99 mg/dL [facility] ALBUMIN 4.4 3.9 - 4.8 g/dL [facility] TOTAL PROTEIN 7.6 6.5 - 8.0 g/dL [facility] CALCIUM 9.3 8.4 - 10.3 mg/dL [facility] ALKALINE PHOSPHATASE 71 39 - 117 U/L [facility] TOTAL BILIRUBIN 0.4 0.0 - 1.2 mg/dL [facility] AST 27 0 - 37 U/L [facility] ALT 21 0 - 40 U/L [facility] GLOBULIN 3.2 1 - 4.8 g/dL [facility] EGFR 55(L) >59 mL/min/1.7 3m2 [facility] Comment:Estimated glomerular filtration rate calculated using the CKD-EPI refit equation. ANION GAP 17 10 - 20 mmol/L [facility] Blood 02/26/2025 10:3 2 AM EDT 02/26/2025 10:38 AM EDT us Cristhian Baker MD LAB BLOOD ORDERABLES Final Re sult [facility] [address] [place] [address] * (ABNORMAL) CBC and differential (02/26/2025 10:32 AM EDT) WBC 6.63 4.00 - 11.00 K/uL [facility] RBC 4.55 4.50 - 5.90 M/uL [facility] HGB 12.8(L) 13.5 - 17.5 g/dL [facility] HCT 39.1(L) 41.0 - 53.0 % [facility] PLT 245 150 - 450 K/uL [facility] MCV 85.9 80.0 - 100.0 fL [facility] MCH 28.1 27.0 - 31.0 pg [facility] MCHC 32.7 32.0 - 36.0 g/dL [facility] RDW 13.9 11.5 - 14.5 % [facility] MPV 9.8 8.4 - 12.0 fL [facility] NRBC 0.00 0.00 /100 WBCs [facility] ABSOLUTE NRBC 0.00 0.00 K/uL [facility] DIFF METHOD Auto [facility] NEUTS 68.0 48.0 - 76.0 % [facility] LYMPHS 17.5(L) 18.0 - 41.0 % [facility] MONOS 8.0 4.0 - 11.0 % [facility] EOS 5.3(H) 0.0 - 5.0 % [facility] BASOS 0.9 0.0 - 1.5 % [facility] Granulocytes, immature (%) 0.3 0.0 - 0.9 % [facility] ABSOLUTE NEUTS 4.51 1.92 - 7.60 K/uL [facility] ABSOLUTE LYMPHS 1.16 0.72 - 4.10 K/uL [facility] ABSOLUTE MONOS 0.53 0.16 - 1.10 K/uL [facility] ABSOLUTE EOS 0.35 0.00 - 0.50 K/uL [facility] ABSOLUTE BASOS 0.06 0.00 - 0.15 K/uL [facility] Granulocytes, immature 0.02 0.00 - 0.09 K/uL [facility] Blood 02/26/2025 10:3 2 AM EDT 02/26/2025 10:38 AM EDT us Cristhian Baker MD LAB BLOOD ORDERABLES Final Re sult [address] [address] * Hemoglobin A1c (02/26/2025 10:32 AM EDT) HEMOGLOBIN A1C 5.7 4.3 - 5.8 % [facility] Blood 02/26/2025 10:3 2 AM EDT 02/26/2025 10:38 AM EDT Cristhian Baker MD LAB BLOOD ORDERABLES Final Re sult Performing Organization Address City/[facility] Co de Phone Number [address] [address] * Outside Lab (01/21/2025 11:12 AM EDT) Only the most recent of2 resultswithin the time period is included. Historical Provider LAB BLOOD ORDERABLES Ani l Result * Outside MR Spine Report Only (01/08/2025 3:14 PM EDT) Historical Provider IMG MR SPINE Final Res ult * Outside Imaging Report Only (01/08/2025 3:08 PM EDT) Historical Provider MD RODRIGUES XR CHEST Final Res ult * Outside XR Spine Report Only (12/30/2024 4:00 PM EDT) Historical Provider IMG XR SPINE Final Res ult * Lipid panel (09/03/2024 8:52 AM EST) HDL 40 mg/dL [facility] Comment: Interpretation <40 mg/dL: Low HDL cholesterol (major risk factor for CHD) Greater than or equal to 60 mg/dL: High HDL cholesterol ( negative risk factor for CHD) HDL - cholesterol is affected by a number of factors, e.g. smoking, excerise, hormones, sex and age. CHOLESTEROL 177 0 - 240 mg/dL [facility] TRIGLYCERIDES 115 30 - 160 mg/dL [facility] LDL 114 50 - 129 mg/dL [facility] Comment: LDL levels in terms of risk for coronary heart disease: <100 mg/dL: Optimal 100-129 mg/dL: Near or above optimal 130-159 mg/dL: Borderline high 160-189 mg/dL: High >190 mg/dL: Very High CARDIAC RISK RATIO 4.4 3.4 - 5.0 [facility] Blood 09/03/2024 8:52 AM EST 09/03/2024 8:58 AM EST Result [facility] Cristhian Baker MD LAB BLOOD ORDERABLES Final Re sult Performing Organization Address [facility]/ZIP Co de Phone Number [address] [address] * Hepatitis C antibody, qualitative (07/27/2020 11:20 AM EST) HCV NON-REACTIV E NON-REACTI VE [facility] Blood 07/27/2020 11:2 0 AM EST 07/27/2020 11:27 AM EST Result [facility] Cristhian Baker MD LAB BLOOD ORDERABLES Final Re sult Performing Organization Address [facility] Co de Phone Number [address] [address] * COLONOSCOPY FOR RESULT ENTRY ONLY (11/04/2019) Historical Provider HEALTH MAINTENANCE Final Result * Outside Glucose,Fasting (02/13/2017) Glucose, fasting - External 87 65 - 99 mg/dL Historical Provider LAB BLOOD ORDERABLES Ani l Result from Last 3 Months or Most Recently Relevant to Health Maintenance Insurance MEDICARE PART A & B [facility] MEDICARE REPLACEMENT MEDICARE PART A & B [facility] [place] [address] MEDICARE PART A & B [facility] MEDICARE REPLACEMENT MEDICARE PART A & B [facility] MEDICARE REPLACEMENT MEDICARE PART A & B [facility] MEDICARE REPLACEMENT MEDICARE PART A & B [facility] MEDICARE REPLACEMENT MEDICARE PART A & B [facility] & B [facility] MEDICARE PART A & B HEALTH Care Teams Tandem Mill Roller Relationship Specialty Start Date End Date Cristhian Baker MD [address] [place] [address] [email or web address] PCP - General Internal Medicine 08/03/17 Rory [place] [address] [place] [address] Rheumatology 07/27/20 Daisha Foreman OD [address] [address] Optometry 07/27/20 Mao Contreras MD [address] [place] [address] Gastroenterology 07/27/20 Additional Source Comments The information contained in this document represents components of the legal health record. It is not the complete legal health record.[facility]
--- OUTSIDE RECORDS SUMMARY | 2025-03-28 11:34 | XMS_ITS | Clinical Summary ---
Author Organization [facility], Address [address] [place] [address] Phone Care Team Providers Care Energy Conservation Director Name Role Phone Cristhian Baker MD Primary Care Provider [phone] Allergies No known active allergies Medications amLODIPine [...] arthritis of multiple joints 08/04/19 18 03/06/2023 Immunizations Immunization Administration Dates Next Due Influenza [...] Visit [facility] [address] [address] Fredrick Danielle MD [address] [place] [address] [place] [address] Health Maintenance Due Date Last Done Comments Colorectal Cancer Screening: Annual FOBT 2007 Colorectal Cancer Screening: Colonoscopy 2007 Colorectal Cancer Screening: Sigmoidoscopy 2007 Pneumococcal Vaccine: 50+ Years (3 of 3 - PCV) 07/17/2019 07/17/2018, 09/28/2012 Influenza Vaccine (#1) 2025 , 04/25/2023, 05/19/2022, Additional history exists Pneumococcal Vaccine: Peds (0 to 5 Years) and At-Risk Patients (6 to 49 Years) Discontinued 07/17/2018, 09/28/2012 Hepatitis B Vaccine Aged Out No longe r eligible based on patient's age to complete this topic Insurance [facility] [place] [address] [facility] Care Teams Energy Conservation Director Relationship Specialty Start Date End Date Cristhian Baker MD [address] [place] [address] PCP - General Internal Medicine 11/22/23
--- OUTSIDE RECORDS SUMMARY | 2025-03-28 11:34 | XMS_ITS | Encounter Summary ---
Author Organization [facility] Address [address] [place] [address] Phone Care Team Providers Care Edging Machine Setter Name Role Phone Cristhian Baker MD Primary Care Provider [phone] Encounter Details Date Type Department Care Team ([facility] Contact Info) Description 12/23/2024 Documentation Only [facility] [address] [place] [address] Cori Belcher [address] [place] [phone] Social History Tobacco Use Types Packs/Day Years [...] Visit [facility] [address] [address] Fredrick Danielle MD [address] [place] [address] [place] [address] documented as of this encounter Visit Diagnoses Not on filedocumented in this encounter Care Teams Edging Machine Setter Relationship Specialty Start Date End Date Cristhian Baker MD [address] [place] [address] PCP - General Internal Medicine 11/22/23 documented as of this encounter
== END 2025-03-28 12:11 | disposition home or self-care (01) ==
LOC: HO.HNS 10:54
PROVIDERS: PCP Internal Medicine; Visit Provider Physician Assistant
DX: M48.061 Spinal stenosis, lumbar region without neurogenic claudication (principal)
CPT/HCPCS: 99024

== ENCOUNTER 2025-04-04 10:52 | Outpatient (AMB) | payer MEDICARE, MEDICAID, SELFPAY ==
--- OUTSIDE RECORDS SUMMARY | 2025-03-26 06:30 | XMS_ITS ---
Author Organization [facility] Address [address] [place] [address] Care Team Providers Care Director Of Officiating Name Role Phone Samuel FELTON, Cristhian Primary Care Provider Mary Contreras Mao Mata [phone] REASON FOR VISIT screening, hx polyps,fam hx colon ca Encounters Encounter Location Date Provider Diagnosis [facility] [place] [address] [place] [phone] 03/26/2025 Mao Contreras Plan Of Treatment Next Appt Details Provider Name:Mao Key Contreras , 06/02/2025 08:30:00 AM, [address] [place] [address], [id number], Progress Notes * MONTES, ANJELENAOB: 9[birth year] (64 yo M)Acc No.[id number]:03/26/2025 COLON WITH MAC Patient: Anna JJBarb RUDI Provider: Ajay Contreras MD :1960 A ge:64 Y S ex:Male Date:03/26/2025 Address:[address] [place], [place] [id number] Pcp:Cristhian Baker MD Subjective: * Chief Complaints: [...] MD Date: 0 03/26/2025 Generated for Kaiden dickey/Halley/Chrisitan on: 0 04/04/2025 12:36 PM EDT
--- NOTE | 2025-04-04 11:00 | HO.SPINEOV ---
Intake Visit Reasons: wound infection f/u Intake Note: Mr. Steinberg is here today to F/u on the wound. Aircraft Cabin Cleaner Required: No Allergies No Known Allergies (No Known Allergies*) Allergy (Verified 03/28/25 11:10) Assessment & Plan Assessment & Plan (1) Lumbar stenosis: Code(s): M48.061 - Spinal stenosis, lumbar region without neurogenic claudication Category: Medical Plan Mr Steinberg came back in today for follow-up. He has had no fevers, chills or systemic symptoms. The leaking on the wound has become last. His culture came back positive for staph aureus, with sensitivities showing responsiveness to Bactrim which he was placed on at his visit last week. He has had no problems with the antibiotics. On the examination today, the opening at the top of the wound appears to be similar if not slightly smaller. There is some serous tissue or film that is collected over the opening. There is no pus seen this time at the bottom of the wound in the small hole that was the bottom of the wound is closed. There is no pain to palpation. There is no discharge to palpation anywhere along the wound edge. Dr. Wilkinson reviewed it with me. I did cut out the denuded tissue and let the area bleed a little bit to try to accelerate the healing. There was just a very superficial less than a mm of this thin serous film over the wound with absolutely no signs of any extension further down. We will keep him on antibiotics and re-evaluate in 1 week. Phu Wilkinson MD, PhD [facility] Medications: Refilled sulfamethoxazole-trimethoprim 800-160 mg (Bactrim DS) 1 tab PO BID 20 tabs 0RF 10 days Coding Level of Care Code Global (51127) Diagnoses Lumbar stenosis M48.061
--- OUTSIDE RECORDS SUMMARY | 2025-04-04 12:36 | XMS_ITS | Patient Health Record ---
Author Organization [facility] Address [address] [place] [address] Care Team Providers Care Maintenance Instructor Name Role Phone Cristhian Baker MD Primary Care Provider Mao Powers Unavailable [phone] Allergies No Known Allergies Reason For Referral [...] Problem Status W/U Status Risk Notes Problem 721651674 Encounter for screening for malignant neoplasm of colon (Z12.11) Active confirmed Problem 606009099 History of adenomatous polyp of colon (Z86.010) Active confirmed Problem 189979996 Gastroesophageal reflux disease without esophagitis (K21.9) Active confirmed Problem Family History of Cancer of Colon (Situation) (741229234) Family history of colon cancer (Z80.0) Active confirmed Problem 920985721 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 Vital Signs Temperature 98.0 degrees Fahrenheit 12/26/2024 Blood pressure diastolic 01 mm Hg 12/26/2024 Height 64.5 in 12/26/2024 Blood pressure systolic 001 mm Hg 12/26/2024 Weight 207.8 lbs 12/26/2024 BMI 35.11 kg/m2 12/26/2024 Procedures Procedure Date Ordered Date Performed Result Body Sit e COLONOSCOPY 12/26/2024 N/A Encounters Encounter Location Date Provider Diagnosis [facility] [address] [place] [phone] 12/26/2024 Mao Contreras Encounter for screen ing for malignant neoplasm of colon Z12.11 ; Eosinophilic gastroenteritis K52.81 ; Gastroesophageal reflux disease without esophagitis K21.9 ; History of adenomatous polyp of colon Z86.010 and Family history of colon cancer Z80.0 [facility] [address] [place] [phone] 03/03/2025 Mao Contreras Assessments Encounter Date Diagnosis [...] Appt Details Provider Name:Mao Contreras , 06/02/2025 08:30:00 AM, [address] [facility] , [place], [place], [id number], Insurance Providers Payer Name Payer Address Payer Phone Subscriber Number Group Number Insured Name Patient Relationship to Insured Coverage Start Date Coverage End Date AARP Medicare Advantage Plan [address] [address] [place] [address] [id number] RUDI CALLOWAY Self - patient is the insured MEDICAID OF [facility] [address] [place] [address] [id number] RUDI CALLOWAY Self - patient is the [...] of prednisone with good results; flareup in [place] in May, 2019 treated with oral prednisone with good relief. As of the December 2024 office visit he was last treated for a flareup of that in 2021 with prednisone Denies [place],DM,CVA,Lung disease,renal dise ase Negative colonoscopy in 06/2014 Colonoscopy in 05/2019 in [facility] with a small tubular adenoma removed-- incomplete to ascending colon and limited due to prep HTN Negative colonoscopy in 10/2019 Surgical History Surgery Date(Month/Year) Bilateral knee replacements in 12/2014 Back surgery x 4--most recent was 2022 w sushma Wilkinson
== END 2025-04-04 11:21 | disposition home or self-care (01) ==
LOC: HO.HNS 10:53
PROVIDERS: PCP Internal Medicine; Visit Provider Physician Assistant
DX: M48.061 Spinal stenosis, lumbar region without neurogenic claudication (principal)
CPT/HCPCS: 99024

== ENCOUNTER → 2025-04-04 10:52 | Outpatient (BNVA) | payer MEDICARE, MEDICAID, SELFPAY | PROVIDERS: PCP Internal Medicine; Visit Provider Physician Assistant | DX: T14.8XXD Other injury of unspecified body region, subsequent encounter (principal); B95.61 Methicillin susceptible Staphylococcus aureus infection as the cause of diseases classified elsewhere; M48.061 Spinal stenosis, lumbar region without neurogenic claudication | CPT/HCPCS: 97597; 99212 ==

== ENCOUNTER 2025-04-11 11:20 | Outpatient (AMB) | payer MEDICARE, MEDICAID, SELFPAY ==
--- OUTSIDE RECORDS SUMMARY | 2025-03-26 06:30 | XMS_ITS ---
Author Organization [facility] Address [address] [place] [address] Care Team Providers Care Television Announcer Name Role Phone Cristhian Baker MD Primary Care Provider Mary Contreras Mao Mata [phone] REASON FOR VISIT screening, hx polyps,fam hx colon ca Encounters Encounter Location Date Provider Diagnosis [facility] [place] [address] [place] [id number] 03/26/2025 Mao Contreras Plan Of Treatment Next Appt Details Provider Name:Mao Key Contreras , 06/02/2025 08:30:00 AM, [address] [place] [address], [id number], Progress Notes * MONTES, ANJELENAOB: [birth year] (64 yo M)Acc No.[id number]:03/26/2025 COLON WITH MAC Patient: Anna JJBarb RUDI Provider: Ajay Contreras MD :1960 A ge:64 Y S ex:Male Date:03/26/2025 Address:[address] [place], [place] [id number] Pcp:Cristhian Baker MD Subjective: * Chief Complaints: * 1 . Screening, hx polyps,fam hx colon ca. * Medical History: Objective: * Vitals: Assessment: Plan: * Treatment: * * The named appointment provid er may or may not be the originator of this progress note, and it is not deemed complete until electronically signed by the appointment provider. Sign off status: Pending * Provider: Ajay Contreras MD Date: 0 03/26/2025 Generated for Kaiden dickey/Halley/Christian on: 1 12:29 PM EDT
--- NOTE | 2025-04-11 11:35 | A.SPINEOV_ITS ---
Intake Visit Reasons: wound infection f/u Intake Note: Mr. Steinberg is here today to have his wound f/u. Demolition Worker Required: No Allergies No Known Allergies (No Known Allergies*) Allergy (Verified 04/11/25 11:35) Assessment & Plan Assessment & Plan (1) S/P spinal surgery: Code(s): Z98.890 - Other specified postprocedural states Category: Medical Plan Mr Steinberg came back in for follow-up. His wound is healing up nicely. There is significant improvement in the closure of the wound. There is no further leakage. He has no pain or fevers. There is just a small opening at the top that is about the size of less than a cm. There is good scab forming and no signs of leakage or discharge Pankaj palpation. He will finishes Bactrim in the next [address] Wilkinson met with him to evaluated the wound. We will hold off on letting him start his methotrexate until the whole wound is completely closed over. He will keep an eye on it and call us and let us know at that time when it is completely healed up. Phu Wilkinson MD, PhD [facility] Coding Level of Care Code Global (14315) Diagnoses S/P spinal surgery Z98.890
--- OUTSIDE RECORDS SUMMARY | 2025-04-11 12:29 | XMS_ITS | Clinical Summary ---
Author Organization [facility], Address [address] [place] [address] Phone Care Team Providers Care Data Center Project Manager Name Role Phone Cristhian Baker MD Primary Care Provider [phone] Allergies No known active allergies Medications amLODIPine [...] Visit [facility] [address] [place] [address] Fredrick Danielle MD [address] [place] [address] [place] [phone] Health Maintenance Due Date Last Done Comments [...] patient's age to complete this topic Insurance [facility] Medicare [facility] Care Teams Data Center Project Manager Relationship Specialty Start Date End Date Cristhian Baker MD [address] [place] [address] PCP - General Internal Medicine 11/22/23
--- OUTSIDE RECORDS SUMMARY | 2025-04-11 12:29 | XMS_ITS | Encounter Summary ---
Author Organization [facility] Address [address] [place] [address] Phone Care Team Providers Care Carbon Brusher Assembler Name Role Phone Cristhian Baker MD Primary Care Provider [phone] Encounter Details Date Type Department Care Team (Late Contact Info) Description 11/22/2023 Documentation Only [facility] [address] [place] [address] Brandyn Wren DC [address] [place] [phone] Social History Tobacco Use Types Packs/Day Years [...] Visit [facility] [address] [place] [address] Fredrick Danielle MD [address] [place] [address] [place] [address] documented as of this encounter Visit Diagnoses Not on filedocumented in this encounter Care Teams Carbon Brusher Assembler Relationship Specialty Start Date End Date Cristhian Baker MD [address] [facility] [place] [address] PCP - General Internal Medicine 11/22/23 documented as of this encounter
--- OUTSIDE RECORDS SUMMARY | 2025-04-11 12:29 | XMS_ITS | Patient Health Record ---
Author Organization [facility] Address [address] [place] [address] Care Team Providers Care Staff Development Coordinator Name Role Phone Cristhian Baker MD Primary Care Provider Mao Powers Unavailable [phone] Allergies No Known Allergies Reason For Referral [...] Problem Status W/U Status Risk Notes Problem 500360339 Encounter for screening for malignant neoplasm of colon (Z12.11) Active confirmed Problem 582361619 History of adenomatous polyp of colon (Z86.010) Active confirmed Problem 524159381 Gastroesophageal reflux disease without esophagitis (K21.9) Active confirmed Problem Family History of Cancer of Colon (Situation) (575585033) Family history of colon cancer (Z80.0) Active confirmed Problem 193773665 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 Vital Signs Temperature 98.0 degrees Fahrenheit 12/26/2024 Blood pressure diastolic 01 mm Hg 12/26/2024 Height 64.5 in 12/26/2024 Blood pressure systolic 001 mm Hg 12/26/2024 Weight 207.8 lbs 12/26/2024 BMI 35.11 kg/m2 12/26/2024 Procedures Procedure Date Ordered Date Performed Result Body Sit e COLONOSCOPY 12/26/2024 N/A Encounters Encounter Location Date Provider Diagnosis [facility] [address] [place] [phone] 12/26/2024 Mao Contreras Encounter for screen ing for malignant neoplasm of colon Z12.11 ; Eosinophilic gastroenteritis K52.81 ; Gastroesophageal reflux disease without esophagitis K21.9 ; History of adenomatous polyp of colon Z86.010 and Family history of colon cancer Z80.0 [facility] [address] [place] [phone] 03/03/2025 Mao Contreras Assessments Encounter Date Diagnosis [...] Name:Mao Contreras , 06/02/2025 08:30:00 AM, [address] [facility] , [place], [place], [id number], Insurance Providers Payer Name Payer Address Payer Phone Subscriber Number Group Number Insured Name Patient Relationship to Insured Coverage Start Date Coverage End Date AARP Medicare Advantage Plan [address] [address] [place] [address] [id number] RUDI CALLOWAY Self - patient is the insured MEDICAID OF [facility] [address] [place] [address] [id number] RUDI CALLOWAY Self - patient is the [...] of that in 2021 with prednisone Denies [place],DM,CVA,Lung disease,renal dise ase Negative colonoscopy in 06/2014 Colonoscopy in 05/[address] [facility] with a small tubular adenoma removed-- incomplete to ascending colon and limited due to prep HTN Negative colonoscopy in 10/2019 Surgical History Surgery Date(Month/Year) Bilateral knee replacements in 12/2014 Back surgery x 4--most recent was 2022 w sushma Wilkinson
--- OUTSIDE RECORDS SUMMARY | 2025-04-11 12:29 | XMS_ITS | Encounter Summary ---
Author Organization [facility] Address [address] [facility] [address] [place] [address] Phone Care Team Providers Care Log Inspector Name Role Phone Cristhian Baker MD Primary Care Provider [phone] Rory Martínez MD Unavailable [phone] Daisha Foreman OD Unavailable [phone] Mao Contreras MD Unavailable [phone] Encounter Details Date Type Department Care Team (Late st Contact Info) Description 03/18/2025 Orders Only [facility] Internal Medicine [address] [place] [address] Provider, MD [address]ol[address] [place] [address] Social History Tobacco Use Types [...] high school, GED, job training, learning the Faroese language, technical skills, or developing parenting skills)? [...] Description 09/08/2025 1:30 PM EST Office Visit [facility] Internal Medicine [address] [place] [address] Cristhian Baker MD [address] [place] [address] [email or web address] documented as of this encounter Procedures Procedure [...] documented as of this encounter Care Teams Log Inspector Relationship Specialty Start Date End Date Cristhian Baker MD [address] [place] [address] PCP - General Internal Medicine 08/03/17 Rory Martínez MD [address] [place] [address] Rheumatology 07/27/20 Daisha Foreman OD [address] [address] Optometry 07/27/20 Mao Contreras MD [address] [place] [address] Gastroenterology 07/27/20 documented as of this encounter Additional Source Comments The information contained in this document represents components of the legal health record. It is not the complete legal health record.[facility]
--- OUTSIDE RECORDS SUMMARY | 2025-04-11 12:29 | XMS_ITS | Encounter Summary ---
Author Organization [facility] Address [address] [place] [address] Phone Care Team Providers Care Conservation Technician Name Role Phone Cristhian Baker MD Primary Care Provider [phone] Encounter Details Date Type Department Care Team ([facility] Contact Info) Description 12/23/2024 Documentation Only [facility] [address] [place] [address] Cori Belcher [address] [place] [address] Social History Tobacco Use Types Packs/Day [...] Visit [facility] [address] [place] [address] Fredrick Danielle MD [address] [place] [address] [place] [address] documented as of this encounter Visit Diagnoses Not on filedocumented in this encounter Care Teams Conservation Technician Relationship Specialty Start Date End Date Cristhian Baker MD [address] [place] [address] PCP - General Internal Medicine 11/22/23 documented as of this encounter
--- OUTSIDE RECORDS SUMMARY | 2025-04-11 12:29 | XMS_ITS | Encounter Summary ---
Author Organization [employer] [facility] Address [address] [facility] [address] [place] [address] Phone Care Team Providers Care Automobile Designer Name Role Phone Cristhian Baker MD Primary Care Provider [phone] Rory Martínez MD Unavailable [phone] Daisha Foreman OD Unavailable [phone] Mao Contreras MD Unavailable [phone] Encounter Details Date Type Department Care Team (Late st Contact Info) Description 03/31/20[address] Orders [address] [facility] Internal Medicine [address] [place] [address] Provider, MD Yolie [address] [place] [address] Social History Tobacco Use Types [...] high school, GED, job training, learning the Portuguese language, technical skills, or developing parenting skills)? [...] Description 09/08/2025 1:30 PM EST Office Visit [facility] Internal Medicine [address] [place] [address] Cristhian Baker MD [address] [place] [address] [email or web address] documented as of this encounter Procedures Procedure Name Priority Date/Time Associated Diagnosis Comments OUTSIDE LAB Routine 03/28/2025 11:34 AM EDT documented in this encounter Results * Outside Lab (03/28/2025 11:34 AM EDT) us Historical Provider LAB BLOOD ORDERABLES Ani l Result documented in this encounter Visit Diagnoses Not on filedocumented in this encounter Additional Health Concerns Assessment Noted Time PHQ-2 Depression Total Score: 0 09/05/19 25 9:29 AM EST documented as of this encounter Care Teams Automobile Designer Relationship Specialty Start Date End Date Cristhian Baker MD [address] [place] [address] PCP - General Internal Medicine 08/03/17 Rory Martínez MD [address] [place] [address] Rheumatology 07/27/20 Daisha Foreman OD [address] [address] Optometry 07/27/20 Mao Contreras MD [address] [facility] [address] [place] [address] Gastroenterology 07/27/20 documented as of this encounter Additional Source Comments The information contained in this document represents components of the legal health record. It is not the complete legal health record.[facility]
--- OUTSIDE RECORDS SUMMARY | 2025-04-11 12:29 | XMS_ITS | Clinical Summary ---
Author Organization [facility] Address [address] [facility] [address] [place] [address] Phone Care Team Providers Care Club Waiter/Waitress Name Role Phone Cristhian Baker MD Primary Care Provider Rory Martínez MD Unavailable [phone] Daisha Foreman OD Unavailable [phone] Mao Contreras MD Unavailable Allergies No known active allergies Medications methotrexate [...] Encounters Date Type Department Care Team Description 04/09/2025 Orders Only [facility] Internal Medicine [address] [place] [address] Provider, MD Yolie 03/31/2025 Orders Only [facility] Internal Medicine [address] [place] [address] Yolie Moreno MD 03/18/2025 Orders Only [facility] Internal Medicine [address] [place] [address] Yolie Moreno MD 02/26/2025 10:28 AM EDT - 02/26/2025 11:59 PM EDT Hospital Encounter [facility] [address] [place] [address] Cristhian Baker MD Discharge Disposition: Home or Self Care 02/26/2025 9:30 AM EDT Office Visit [facility] Internal Medicine [address] [place] [address] Cristhian Baker MD Essential hypertension (Primary Dx); Chronic renal failure, stage 3a; Impaired fasting glucose 02/10/2025 Telephone [facility] Internal Medicine [address] [place] [address] Cristhian Baker MD Review of Orders 01/31/2025 Orders Only [facility] Internal Medicine [address] [place] [address] Yolie Moreno MD 01/28/2025 Orders Only [facility] Internal Medicine [address] [place] [address] Yolie Moreno MD 01/13/2025 Telephone [facility] Internal Medicine [address] [place] [address] Cristhian Baker MD 01/13/2025 Refill [facility] Internal Medicine [address] [place] [address] Cristhian Baker MD Medication Refill 01/09/2025 Orders Only [facility] Internal Medicine [address] [place] [address] Yolie Moreno MD from Last 3 Months Immunizations Immunization [...] high school, GED, job training, learning the [place] language, technical skills, or developing parenting skills)? [...] Description 09/08/2025 1:30 PM EST Office Visit [facility] Internal Medicine [address] [place] [address] Cristhian Baker MD [address] [place] [address] [email or web address] Due Date Last Done Comments [...] Date/Time Associated Diagnosis Comments OUTSIDE LAB Routine 04/09/2025 12:31 PM EDT OUTSIDE LAB Routine 03/28/2025 11:34 AM EDT OUTSIDE IMAGING Routine 03/18/2025 2:24 PM EDT [...] OUTSIDE LAB Routine 01/21/2025 10:31 AM EDT LIPID PANEL Routine 09/03/2024 8:52 AM EST Pure hypercholesterolemia HEPATITIS C ANTIBODY, QUALITATIVE Routine 07/27/2020 11:20 AM EST Need for hepatitis C screening test HM COLONOSCOPY FOR RESULT ENTRY ONLY Routine 11/04/2019 OUTSIDE GLUCOSE FASTING Routine 02/13/2017 from Last 3 Months or Most Recently Relevant to Health Maintenance Results * Outside Lab (04/09/2025 12:31 PM EDT) Only the most recent of4 resultswithin the time period is included. Historical Provider LAB BLOOD ORDERABLES Ani l Result * Outside Imaging Report Only (03/18/2025 2:24 PM EDT) Historical Provider IMG XR CHEST Final Res ult * (ABNORMAL) Comprehensive metabolic panel (02/26/2025 10:32 AM EDT) SODIUM 136 133 - 146 mmol/L [facility] POTASSIUM 4.4 3.3 - 5.1 mmol/L [facility] Comment:Specimen slightly he molyzed, result may be falsely elevated. CHLORIDE 99 96 - 108 mmol/L [facility] CO2 24 21 - 35 mmol/L [facility] BUN 24(H) 6 - 19 mg/dL [facility] CREATININE 1.40 0.5 - 1.5 mg/dL [facility] GLUCOSE 97 70 - 99 mg/dL [facility] ALBUMIN 4.4 3.9 - 4.8 g/dL [facility] TOTAL PROTEIN 7.6 6.5 - 8.0 g/dL [facility] CALCIUM 9.3 8.4 - 10.3 mg/dL [facility] ALKALINE PHOSPHATASE 71 39 - 117 U/L [facility] TOTAL BILIRUBIN 0.4 0.0 - 1.2 mg/dL [facility] AST 27 0 - 37 U/L [facility] ALT 21 0 - 40 U/L [facility] GLOBULIN 3.2 1 - 4.8 g/dL [facility] EGFR 55(L) >59 mL/min/1.7 3m2 [facility] Comment:Estimated glomerular filtration rate calculated using the CKD-EPI refit equation. ANION GAP 17 10 - 20 mmol/L [facility] Blood 02/26/2025 10:3 2 AM EDT 02/26/2025 10:38 AM EDT Cristhian Baker MD LAB BLOOD ORDERABLES Final Re sult [facility] [address] [place] [address] * (ABNORMAL) CBC and differential (02/26/2025 10:32 AM EDT) WBC 6.63 4.00 - 11.00 K/uL [facility] RBC 4.55 4.50 - 5.90 M/uL [facility] HGB 12.8(L) 13.5 - 17.5 g/dL [facility] HCT 39.1(L) 41.0 - 53.0 % [facility] PLT 245 150 - 450 K/uL [facility] MCV 85.9 80.0 - 100.0 fL [facility] MCH 28.1 27.0 - 31.0 pg [facility] MCHC 32.7 32.0 - 36.0 g/dL [facility] RDW 13.9 11.5 - 14.5 % [facility] MPV 9.8 8.4 - 12.0 fL [facility] NRBC 0.00 0.00 /100 WBCs [facility] ABSOLUTE NRBC 0.00 0.00 K/uL [facility] DIFF METHOD Auto [facility] NEUTS 68.0 48.0 - 76.0 % [facility] LYMPHS 17.5(L) 18.0 - 41.0 % [facility] MONOS 8.0 4.0 - 11.0 % [facility] EOS 5.3(H) 0.0 - 5.0 % [facility] BASOS 0.9 0.0 - 1.5 % [facility] Granulocytes, immature (%) 0.3 0.0 - 0.9 % [facility] ABSOLUTE NEUTS 4.51 1.92 - 7.60 K/uL [facility] ABSOLUTE LYMPHS 1.16 0.72 - 4.10 K/uL [facility] ABSOLUTE MONOS 0.53 0.16 - 1.10 K/uL [facility] ABSOLUTE EOS 0.35 0.00 - 0.50 K/uL [facility] ABSOLUTE BASOS 0.06 0.00 - 0.15 K/uL [facility] Granulocytes, immature 0.02 0.00 - 0.09 K/uL [facility] Blood 02/26/2025 10:3 2 AM EDT 02/26/2025 10:38 AM EDT us Cristhian Baker MD LAB BLOOD ORDERABLES Final Re sult Performing Organization Address [facility] Co de Phone Number [address] [address] * Hemoglobin A1c (02/26/2025 10:32 AM EDT) HEMOGLOBIN A1C 5.7 4.3 - 5.8 % [facility] Blood 02/26/2025 10:3 2 AM EDT 02/26/2025 10:38 AM EDT Cristhian Baker MD LAB BLOOD ORDERABLES Final Re sult Performing Organization Address [facility] de Phone Number [address] [address] * Lipid panel (09/03/2024 8:52 AM EST) HDL 40 mg/dL [facility] Comment: Interpretation <40 mg/dL: Low HDL cholesterol (major risk factor for CHD) Greater than or equal to 60 mg/dL: High HDL cholesterol ( negative risk factor for CHD) HDL - cholesterol is affected by a number of factors, e.g. smoking, excerise, hormones, sex and age. CHOLESTEROL 177 0 - 240 mg/dL [facility] TRIGLYCERIDES 115 30 - 160 mg/dL [facility] LDL 114 50 - 129 mg/dL [facility] Comment: LDL levels in terms of risk for coronary heart disease: <100 mg/dL: Optimal 100-129 mg/dL: Near or above optimal 130-159 mg/dL: Borderline high 160-189 mg/dL: High >190 mg/dL: Very High CARDIAC RISK RATIO 4.4 3.4 - 5.0 C [facility] Blood 09/03/2024 8:52 AM EST 09/03/2024 8:58 AM EST Cristhian Baker MD LAB BLOOD ORDERABLES Final Re sult [address] [address] * Hepatitis C antibody, qualitative (07/27/2020 11:20 AM EST) HCV NON-REACTIV E NON-REACTI VE [facility] Blood 07/27/2020 11:2 0 AM EST 07/27/2020 11:27 AM EST Cristhian Baker MD LAB BLOOD ORDERABLES Final Re sult Performing Organization Address [facility] Co de Phone Number [address] [address] * COLONOSCOPY FOR RESULT ENTRY ONLY (11/04/2019) Historical Provider HEALTH MAINTENANCE Final Result * Outside Glucose,Fasting (02/13/2017) Glucose, fasting - External 87 65 - 99 mg/dL Historical Provider LAB BLOOD ORDERABLES Ani l Result from Last 3 Months or Most Recently Relevant to Health Maintenance Insurance MEDICARE PART A & B [facility] MEDICARE REPLACEMENT MEDICARE PART A & B Member Subscriber Plan / Payer (Ef fective 2016-Present) Name:Tomás Steinberg Member ID:[id number] Relation to Subscriber:Self Name:Tomás Steinberg Subscriber ID:[id number] Payer ID:[id number] Group ID:Not on file Type:Medicare Address: [facility] [employer] [facility] [employer] [facility] [address] [place] [address] [facility] MEDICARE REPLACEMENT MEDICARE PART A & B [facility] MEDICARE REPLACEMENT MEDICARE PART A & B [facility] MEDICARE REPLACEMENT MEDICARE PART A & B [facility] MEDICARE REPLACEMENT MEDICARE PART A & B [facility] MEDICARE REPLACEMENT MEDICARE PART A & B [facility] MEDICARE PART A & [place] MED[place] PART A [place] [id number] Care Teams Club Waiter/Waitress Relationship Specialty Start Date End Date Cristhian Baker MD [address] [place] [address] [email or web address] PCP - General Internal Medicine 08/03/17 Rory Martínez MD [address] [place] [address] Rheumatology 07/27/20 Daisha Foreman OD [address] [address] Optometry 07/27/20 Mao Contreras MD [address] [place] [address] [address] [place] [address] Gastroenterology 07/27/20 Additional Source Comments The information contained in this document represents components of the legal health record. It is not the complete legal health record.[facility]
--- OUTSIDE RECORDS SUMMARY | 2025-04-11 12:29 | XMS_ITS | Encounter Summary ---
Author Organization [facility] Address [address] [employer] [facility] [address] [place] [address] Phone Care Team Providers Care Principal Architect Name Role Phone Cristhian Baker MD Primary Care Provider [phone] Rory Martínez MD Unavailable [phone] Daisha Foreman OD Unavailable [phone] Mao Contreras MD Unavailable [phone] Encounter Details Date Type Department Care Team (Late st Contact Info) Description 04/09/2025 Orders Only [facility] Internal Medicine [address] [place] [address] Provider, MD Yolie [address] [place] [address] Social History Tobacco Use Types [...] high school, GED, job training, learning the Maori language, technical skills, or developing parenting skills)? [...] Description 09/08/2025 1:30 PM EST Office Visit [facility] Internal Medicine [address] [place] [address] Cristhian Baker MD [address] [place] [address] [email or web address] documented as of this encounter Procedures Procedure Name Priority Date/Time Associated Diagnosis Comments OUTSIDE LAB Routine 04/09/2025 12:31 PM EDT documented in this encounter Results * Outside Lab (04/09/2025 12:31 PM EDT) us Historical Provider LAB BLOOD ORDERABLES Ani l Result documented in this encounter Visit Diagnoses Not on filedocumented in this encounter Additional Health Concerns Assessment Noted Time PHQ-2 Depression Total Score: 0 09/05/19 25 9:29 AM EST documented as of this encounter Care Teams Principal Architect Relationship Specialty Start Date End Date Cristhian Baker MD [address] [place] [address] PCP - General Internal Medicine 08/03/17 Rory Martínez MD [address] [place] [address] Rheumatology 07/27/20 Daisha Foreman OD [address] [address] Optometry 07/27/20 Mao Contreras MD [address] [place] [address] Gastroenterology 07/27/20 documented as of this encounter Additional Source Comments The information contained in this document represents components of the legal health record. It is not the complete legal health record.[facility]
== END 2025-04-11 11:58 | disposition home or self-care (01) ==
LOC: HO.HNS 11:20
PROVIDERS: PCP Internal Medicine; Visit Provider Physician Assistant
DX: Z98.890 Other specified postprocedural states (principal)
CPT/HCPCS: 99024

== ENCOUNTER → 2025-04-11 11:20 | Outpatient (BNVA) | payer MEDICARE, MEDICAID, SELFPAY | PROVIDERS: PCP Internal Medicine; Visit Provider Physician Assistant | DX: Z47.89 Encounter for other orthopedic aftercare (principal); Z98.890 Other specified postprocedural states | CPT/HCPCS: 99212 ==

== ENCOUNTER 2025-06-02 06:29 | Day surgery (SDC) | payer MEDICARE, MEDICAID, SELFPAY ==
--- OUTSIDE RECORDS SUMMARY | 2025-02-03 09:31 | XMS_ITS | Patient Health Record ---
Author Organization [facility] Address [address] [place] [address] Care Team Providers Care Antisqueak Filler Name Role Phone Cristhian Baker MD Primary Care Provider Mao Powers Unavailable [phone] Allergies No Known Allergies Reason For Referral [...] Problem Status W/U Status Risk Notes Problem [id number] Encounter for screening for malignant neoplasm of colon (Z12.11) Active confirmed Problem 658478523 History of adenomatous polyp of colon (Z86.010) Active confirmed Problem 756127318 Gastroesophageal reflux disease without esophagitis (K21.9) Active confirmed Problem Family history o f colon cancer (Z80.0) Active confirmed Problem 651076636 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 Vital Signs Temperature 98.0 degrees Fahrenheit 12/26/2024 Blood pressure diastolic 01 mm Hg 12/26/2024 Height 64.5 in 12/26/2024 Blood pressure systolic 001 mm Hg 12/26/2024 Weight 207.8 lbs 12/26/2024 BMI 35.11 kg/m2 12/26/2024 Procedures Procedure Date Ordered Date Performed Result Body Sit e COLONOSCOPY 12/26/2024 N/A Encounters Encounter Location Date Provider Diagnosis [facility] [address] [place] [address] 12/26/2024 Mao Contreras Encounter for screen ing [...] Provider Name:Mao Contreras , 03/26/2025 10:30:00 AM, [address] [place], [place] [address], [place], [id number], Insurance Providers Payer Name Payer Address Payer Phone Subscriber Number Group Number Insured Name Patient Relationship to Insured Coverage Start Date Coverage End Date [facility] Medicare Advantage Plan [address] [address] [place] [address] [id number] RUDI CALLOWAY Self - patient is the insured MEDICAID OF [facility] [address] [place] [address] [id number] RUDI CALLOWAY Self - patient is the [...] of prednisone with good results; flareup in [place] in May, 2019 treated with oral prednisone with good relief. As of the December 2024 office visit he was last treated for a flareup of that in 2021 with prednisone Denies NH,DM,CVA,Lung disease,renal dise ase Negative colonoscopy in 06/2014 Colonoscopy in 05/2019 in [facility] with a small tubular adenoma removed-- incomplete to ascending colon and limited due to prep HTN Negative colonoscopy in 10/2019 Surgical History Surgery Date(Month/Year) Bilateral knee replacements in 12/2014 Back surgery x 4--most recent was 2022 w sushma Wilkinson
--- OUTSIDE RECORDS SUMMARY | 2025-02-03 09:31 | XMS_ITS | Clinical Summary ---
Author Organization [facility], Address [address] [place] [address] Phone Care Team Providers Care General Passenger Agent Name Role Phone Cristhian Baker MD Primary Care Provider [phone] Allergies No known active allergies Medications amLODIPine (NORVASC) 10 MG tablet Take 10 mg by mouth in the morning. 11/29/2022 Active cholecalciferol (VITAMIN D-3 SUPER STRENGTH) 50 MCG (1999 UT) tablet Take 1,000 Units by mouth in the morning. Active methotrexate 2.5 MG tablet Take 20 mg by mouth 1 (one) time per week Active lisinopril 20 MG tablet Take 1 tablet by mouth 1 (one) time each day 01/18/2022 Active hydroxychloroqui ne (PLAQUENIL) 200 MG tablet Take 400 mg by mouth in the morning. 12/12/2017 Active folic acid (FOLVITE) 1 MG tablet Take 1 mg by mouth in the morning. Active omeprazole (PriLOSEC) [address] capsule Take 40 mg by mouth in the morning. 05/20/2020 Active chlorthalidone 25 MG tabletIndication s:Hypertension Take 1 tablet (25 mg total) by mouth every other day 45 tablet 3 11/04/2024 Active Active Problems Problem Noted Date Diagnosed Date Obese class II 12/28/2020 03/06/2023 Benign prostatic hyperplasia 08/04/2017 Calculus of kidney 08/04/2017 03/06/2023 Degeneration of lumbar intervertebral disc 08/0403/06/2023 Eosinophilic gastroenteritis 08/04/2017 Essential hypertension 08/04/2017 Gastroesophageal reflux disease 08/04/2017 03/06/2023 H/O: musculoskeletal disease 08/04/2017 Hesitancy of micturition 08/04/2017 023 Pure hypercholesterolemia 08/04/20172022 Rheumatoid arthritis of multiple joints 08/04/19 18 03/06/2023 Encounters Date Type Department Care Team Description 12/25/2024 1:15 PM EDT Office Visit [facility] [address] [place] [address] Fredrick Danielle MD Stage 3a chronic kidney disease (HCC) (Primary Dx) 12/23/2024 Documentation Only [facility] [address] [place] [address] Belcher, Cori 12/23/2024 Orders Only [facility] [address] [place] [address] Belcher, Cori 11/04/2024 2:15 PM EDT Office [facility] [address] [place] [address] Fredrick Danielle MD Hypertension (Primary Dx) from Last 3 Months Immunizations Immunization Administration Dates Next Due Influenza Split 05/15/2017 Influenza Split High Dose Pr eservative Free IM 05/02/2024 Influenza, MDCK, Quadrivalen t, with preservative 05/05/2021 Influenza, Quadrivalent, Pre servative Free 04/25/2023,05/19/2022,07/27/2020,04/03 Influenza, Unspecified 09/29/2012 PPD Test 01/09/2018,07/10/2004 Pfizer SARS-COV-2 12/16/2020,11/25/2020 Pneumococcal Polysaccharide 07/17/2018, 3 Shingrix 01/08/2019,10/20/2018 TD Preservative Free 01/15/2019,07/10/2007 Tdap 05/20/2024 Family History Medical History Relation Comments Diabetes Brother Diabetes Father Diabetes Mother Diabetes Sister Relation Status Comments Brother Father Mother Sister Social History Tobacco Use Types Packs/Day Years Used Date Smoking Tobacco: Never Smokeless Tobacco: Never Tobacco Cessation:Counseling Given: Not Answered Alcohol Use Standard Drinks/Week Comments Yes 0 (1 standard drink = 0.6 oz pur e alcohol) occas. Sex and Gender Information Value Date Recorded Sex Assigned at Not on file Legal Sex Male 3:20 PM EDT Gender Identity Not on file Sexual Orientation Not on file Last Filed Vital Signs Vital Sign Reading Time Taken Comments Blood Pressure 128/64 01/01/2024 2:54 PM EDT Pulse 96 03/07/2023 2:12 PM EDT Temperature 36.6 C (97.8 F) 03/07/2023 2:12 PM EDT Respiratory Rate - - Oxygen Saturation 96% 03/07/2023 2:12 PM EDT Inhaled Oxygen Concentration - - Weight 89.8 kg (198 lb) 03/07/2023 2:12 PM EDT Height 162.6 cm (5' 4 ) 03/07/2023 2:12 PM EDT Body Mass Index 33.99 03/07/2023 2:12 PM EDT Plan of Treatment Upcoming Encounters Date Type Department Care Team (Late st Contact Info) Description 07/02/2025 1:45 PM EST Office Visit [facility], [address] [place] [phone] Fredrick Danielle MD [address] [place] [address] [place] [phone] Health Maintenance Due Date Last Done Comments Colorectal Cancer Screening: Annual FOBT 2007 Colorectal Cancer Screening: Colonoscopy 2007 Colorectal Cancer Screening: Sigmoidoscopy 2007 Pneumococcal Vaccine: 50+ Years (3 of 3 - PCV) 07/17/2019 07/17/2018, 09/28/2012 Influenza Vaccine (#1) 2025 4, 04/25/2023, 05/19/2022, Additional history exists Pneumococcal Vaccine: Peds (0 to 5 Years) and At-Risk Patients (6 to 49 Years) Discontinued 07/17/2018, 09/28/2012 Hepatitis B Vaccine Aged Out No longe r eligible based on patient's age to complete this topic Insurance [facility] Medicare [facility] Care Teams General Passenger Agent Relationship Specialty Start Date End Date Cristhian Baker MD [address] [place] [id number] PCP - General Internal Medicine 11/22/23
--- OUTSIDE RECORDS SUMMARY | 2025-02-03 09:31 | XMS_ITS | Encounter Summary ---
Author Organization [facility] Address [address] [place] [address] Phone Care Team Providers Care Candle Making Supervisor Name Role Phone Cristhian Baker MD Primary Care Provider [phone] Rory Martínez MD Unavailable [phone] Daisha Foreman OD Unavailable Mao Contreras MD Unavailable [phone] Encounter Details Date Type Department Care Team (Late st Contact Info) Description 01/31/2025 Orders Only [facility] Internal Medicine [address] [place] [address] Provider, MD Yolie [address] [place] [address] Social History Tobacco Use Types Packs/Day Years Used Date Smoking Tobacco: Never Smokeless Tobacco: Never Alcohol Use Standard Drinks/Week Comments Yes 0 (1 standard drink = 0.6 oz pur e alcohol) 2 drinks hard selzter a month Child or Family Care Answer Date Record ed Do you have problems with on e of the following making it difficult for you to work, study, or receive health care? No 08/25/2023 Education Answer Date Recorded Are you interested in help w ith more adult education (for example, completing high school, GED, job training, learning the Guamanian language, technical skills, or developing parenting skills)? Yes 08/25/2023 Are you concerned about learning? Not on file 08/25/2023 Yes 08/25/2023 No 08/25/2023 Food Answer Date Recorded Within the past 6 months we worried whether our food would run out before we got money to buy more. Never True 08/25/2023 Within the past 6 months the food we bought just didn't last and we didn't have enough money to get more. Never True Residential Stability Answer Date Recor ded What is your housing situation today? I am stayi ng with others 08/25/2023 How many times have you move d in the past 12 months? Zero (I did not move) 08/25/2023 Paying for Meds Answer Date Recorded Do you have trouble paying for medicines? No 08/25/2023 Paying Utility Bills Answer Date Record ed Do you have trouble paying your heating or elect ricity bill? No 08/25/2023 Transportation Answer Date Recorded Has the lack of transportati on kept you from medical appointments or from getting medications? No 08/25/2023 Unemployment Answer Date Recorded Are you currently unemployed or working on a part-time or temporary basis, and looking for work? No 05/19/2022 Digital Access Answer Date Recorded No 08/25/2023 Yes 08/25/2023 Do you have reliable internet access at home? Ye s 08/25/2023 Do you have a device (e.g., phone, tablet, computer) with a working camera? Yes 08/25/2023 Intimate Partner Violence Answer Date R ecorded Denied Basic Needs Not on file 09/02/2024 In the past 12 months have y ou been in a relationship with a person who hurts, threatens, or tries to control you? No 09/02/2024 Worried food would run out Not on file 09/02 In the past 12 months have y ou been in a relationship with a person who hurts, threatens, or tries to control you? No 09/02/2024 Sex and Gender Information Value Date Recorded Sex Assigned at Not on file Legal Sex Male 9:51 PM EDT Gender Identity Not on file Sexual Orientation Not on file documented as of this encounter Plan of Treatment Upcoming Encounters Date Type Department Care Team (Late st Contact Info) Description 02/26/2025 9:30 AM EDT Office Visit [facility] Internal Medicine [address] [place] [address] Cristhian Baker MD [address] [place] [address] [email or web address] documented as of this encounter Procedures Procedure Name Priority Date/Time Associated Diagnosis Comments OUTSIDE LAB Routine 01/21/2025 11:12 AM EDT documented in this encounter Results * Outside Lab (01/21/2025 11:12 AM EDT) us Historical Provider LAB BLOOD ORDERABLES Ani l Result documented in this encounter Visit Diagnoses Not on filedocumented in this encounter Additional Health Concerns Assessment Noted Time PHQ-2 Depression Total Score: 0 09/05/19 25 9:29 AM EST documented as of this encounter Care Teams Candle Making Supervisor Relationship Specialty Start Date End Date Cristhian Baker MD [address] [place] [address] [email or web address] PCP - General Internal Medicine 08/03/17 Rory [place] [address] [place] [phone] Rheumatology 07/27/20 Daisha Foreman OD [address] [address] Optometry 07/27/20 Mao Contreras MD [address] [place] [address] Gastroenterology 07/27/20 documented as of this encounter Additional Source Comments The information contained in this document represents components of the legal health record. It is not the complete legal health record.[facility]
--- NOTE | 2025-05-28 13:47 | HO.ANESPROP2 ---
Documented by User: Amanda Mohr NP 05/28/25 13:52 HPI - Anesthesia Eval Consult details Narrative: 64yo M for Colonoscopy s/p OLIF 03/2025 with GA-ETT 7 Prior to OLIF: Medically optimized per PCP s/p multiple surgeries without anesthesia issues, including ALIF No recent illness No CP/SOB with minimal walking d/t pain RA: Methotrexate, last dose preop 02/2025 / plaquinel GERD: ppi controls PMFSH Active Problems Active Problems: All Active Problems S/P spinal surgery (Acute) Lumbar stenosis (Acute) Back pain of lumbar region with sciatica (Acute) Past Medical History Medical History Renal calculi Rheumatoid arthritis Low back pain Left shoulder pain Seasonal allergies GERD (gastroesophageal reflux disease) HTN (hypertension) Family History Family history of problems with anesthesia: No Surgical History Surgical History History of lumbar spinal fusion Hx of esophagogastroduodenoscopy Hx of repair of left rotator cuff Hx of cystoscopy History of back surgery History of back surgery Hx of colonoscopy History of total bilateral knee replacement (TKR) S/P lumbar fusion History of Problems with Anesthesia: No Social History Social History Household Members: Spouse Housing: House Are you a primary clinical care coordinator to a significant other at home: No Do you presently have visiting nurse or other home services: No Patient Tobacco Use Status: Never used Tobacco Use of substances other than those prescribed or required for medical reasons: No Are you DNR?: No Advance Directives: No Advance Directives Information Provided: Yes service: No Meds Allergies Allergy/AdvReac Type Severity Reaction Status Date / Time No Known Allergies (No Known Allergy Verified 04/11/25 11:35 Allergies*) Home Medications ?Medication ?Instructions ?Recorded ?Confirmed ?Last Taken ?Type amlodipine 5 mg tablet 5 mg PO QAM 11/04/22 06/02/25 03/18/25 06:30 History cholecalciferol (vitamin D3) 50 50 mcg PO QAM 11/04/22 06/02/25 03/26/23 History mcg (2,000 unit) capsule (Vitamin D3) folic acid 1 mg tablet 1 mg PO QAM 11/04/22 06/02/25 03/27/23 History hydroxychloroquine 200 mg tablet 400 mg PO QAM 11/04/22 06/02/25 03/26/23 History methotrexate sodium 2.5 mg tablet 20 mg PO MO 11/04/22 06/02/25 03/03/25 History Held on 03/20/25. Instructions: Resume on 04/10/25. Hold until 1st postop visit, discuss restarting with your prescriber omeprazole 40 mg capsule,delayed 40 mg PO QAM 11/04/22 06/02/25 03/18/25 06:30 History release chlorthalidone 25 mg tablet 25 mg PO Q OTHER DAY 03/11/25 06/02/25 Unknown History lisinopril 40 mg tablet 40 mg PO DAILY 03/18/25 06/02/25 Unknown History Exam Pertinent Lab Results Pertinent Lab Results: CBC and BMP 02/2025 OK (slight low H&H) Narrative Narrative: EKG 03/2025 Vent. Rate : 59 BPM Atrial Rate : 59 BPM P-R Int : 208 ms QRS Dur : 104 ms QT Int : 392 ms P-R-T Axes : 32 -39 14 degrees QTcB Int : 388 ms Sinus bradycardia with Premature supraventricular complexes Left axis deviation Minimal voltage criteria for LVH, may be normal variant ( R in aVL ) Abnormal ECG When compared with ECG of 07-Nov-2022 14:38, Premature supraventricular complexes are now Present QRS axis Shifted left Assessment and Plan Assessment Anesthesia Assessment: Chart Reviewed Final Anesthetic Review Family History of Problems with Anesthesia: No History of Problems with Anesthesia: No Documented by User: Martin Lee MD 06/02/25 07:35 [facility] Past Medical History Medical History Renal calculi Rheumatoid arthritis Low back pain Left shoulder pain Seasonal allergies GERD (gastroesophageal reflux disease) HTN (hypertension) Surgical History Surgical History History of lumbar spinal fusion Hx of esophagogastroduodenoscopy Hx of repair of left rotator cuff Hx of cystoscopy History of back surgery History of back surgery Hx of colonoscopy History of total bilateral knee replacement (TKR) S/P lumbar fusion Social History Social History Household Members: Spouse Housing: House Are you a primary clinical care coordinator to a significant other at home: No Do you presently have visiting nurse or other home services: No Patient Tobacco Use Status: Never used Tobacco Use of substances other than those prescribed or required for medical reasons: No Are you DNR?: No Advance Directives: No Advance Directives Information Provided: Yes service: No Meds Allergies Allergy/AdvReac Type Severity Reaction Status Date / Time No Known Allergies (No Known Allergy Verified 04/11/25 11:35 Allergies*) Home Medications ?Medication ?Instructions ?Recorded ?Confirmed ?Last Taken ?Type amlodipine 5 mg tablet 5 mg PO QAM 11/04/22 06/02/25 03/18/25 06:30 History cholecalciferol (vitamin D3) 50 50 mcg PO QAM 11/04/22 06/02/25 03/26/23 History mcg (2,000 unit) capsule (Vitamin D3) folic acid 1 mg tablet 1 mg PO QAM 11/04/22 06/02/25 03/27/23 History hydroxychloroquine 200 mg tablet 400 mg PO QAM 11/04/22 06/02/25 03/26/23 History methotrexate sodium 2.5 mg tablet 20 mg PO MO 11/04/22 06/02/25 03/03/25 History Held on 03/20/25. Instructions: Resume on 04/10/25. Hold until 1st postop visit, discuss restarting with your prescriber omeprazole 40 mg capsule,delayed 40 mg PO QAM 11/04/22 06/02/25 03/18/25 06:30 History release chlorthalidone 25 mg tablet 25 mg PO Q OTHER DAY 03/11/25 06/02/25 Unknown History lisinopril 40 mg tablet 40 mg PO DAILY 03/18/25 06/02/25 Unknown History Exam Exam Date and Time: 06/02/25 Airway Mallampati Class: II Loose/Missing/Broken Teeth: No Heart: normal Lungs: normal Other: normal Assessment and Plan Assessment Anesthesia Assessment: Anesthesia Plan Discussed Final Anesthetic Review NPO: Yes ASA Class: II Final Preanesthetic Review: No Changes in Pt Med Stat, Meds/Allgs Chart Reviewed, Consent Obtained/Reviewed and Anes Risks/Benef Reviewed Patient Risk: Low Procedure Risk: Low Anesthetic Plan Anesthetic Plan: MAC: Disposition: Standard PACU
[2025-06-02 06:45] VITALS: BMI 36.0
[2025-06-02 06:47] VITALS: BP 158/93; PULSE 78; RESP 16; TEMP 37.1; O2SAT 96
[2025-06-02] MEDS: Lactated Ringers 1,000 ML 100 ML IVCONT (07:00)
[2025-06-02 08:35] VITALS: BP 131/72; PULSE 59; RESP 16; TEMP 36.3; O2SAT 99
--- NOTE | 2025-06-02 08:35 | P.BOP_ITS ---
Brief Operative Note Date of Service: 06/02/25 Pre-op diagnosis: Screening Post-op diagnosis: other (Polyps) Procedure: Colonoscopy to the cecum and TI with hot snare polypectomy of ascending colon polyp and bx/removal of transverse colon polyp Surgeon: Mao Contreras MD Anesthesia: MAC Was an Aviation Operations Specialist used for this Procedure?: No Estimated blood loss (mL): 2.0 Pathology: other (A. Ascending colon polyp B. Transverse colon polyp) Condition: stable Disposition: PACU
[2025-06-02 08:52] VITALS: BP 132/83; PULSE 59; RESP 12; TEMP 36.1; O2SAT 97
--- NOTE | 2025-06-02 09:05 | OP_ITS ---
DATE OF SERVICE: 06/02/2025 SURGEON: Mao Contreras MD INDICATIONS: Patient presents for evaluation of personal history of tubular adenoma of the colon and colorectal cancer screening. Full consent was obtained from him for this, including risks of bleeding and perforation. PREOPERATIVE DIAGNOSIS: Colorectal cancer screening, personal history of tubular adenoma of the colon, family history of colon cancer. POSTOPERATIVE DIAGNOSIS: Colorectal cancer screening, personal history of tubular adenoma of the colon, family history of colon cancer, colon polyps, diverticulosis, and internal hemorrhoids. PROCEDURE PERFORMED: Colonoscopy to the cecum, hot snare polypectomy x1, and biopsy and removal of polyp. ESTIMATED BLOOD LOSS: COMPLICATIONS: ANESTHESIA: Monitored anesthesia care. ASSISTANTS: SPECIMENS: DESCRIPTION OF PROCEDURE: The patient was placed in the left lateral decubitus position. The digital rectal exam revealed no abnormalities. The [employer] video pediatric colonoscope was entered into the rectum and advanced easily to the cecum. Once in the cecum, I did identify normal-appearing cecal pouch with appendiceal orifice and normal-appearing ileocecal valve. The terminal ileum was cannulated and appeared normal. The scope was withdrawn back in the colon. The entire cecum and appendiceal orifice appeared normal. The scope was slowly withdrawn assessing all mucosal surfaces carefully. Preparation was excellent. In the proximal ascending colon, there was an approximately 8 mm grossly adenomatous polyp, which was removed by hot snare polypectomy and recovered by suction. The polypectomy site appeared clean, without any sign of residual polyp nor bleeding. In the transverse colon, there was a 2 or 3 mm polyp, which was biopsied and completely removed with cold biopsy forceps. I did not visualize any other polyps, colitis, or angiodysplasia. There was a mild amount of sigmoid diverticulosis. In the rectum, scope was retroflexed, visualizing internal hemorrhoids, but no other pathology. The rectal mucosa appeared normal. Scope was straightened out and withdrawn from the patient. He tolerated the procedure well and was returned to the recovery area in stable condition. IMPRESSION: 1. Colon polyps. 2. Diverticulosis. 3. Internal hemorrhoids. PLAN: The results of the pathology will be checked. I would recommend a repeat colonoscopy in 5 years for further surveillance. He was advised not to use any aspirin or NSAIDs for 1 week. MD KYLAH Pimentel/SUSU / [id number]
== END 2025-06-02 09:28 | disposition home or self-care (01) ==
PROVIDERS: PCP Internal Medicine; Visit Provider Internal Medicine
PROC: 0DJD8ZZ Inspection of Lower Intestinal Tract, Via Natural or Artificial Opening Endoscopic (ICD-10-PCS; CPT 45378; principal; 2025-06-02 07:30)
DX: Z12.11 Encounter for screening for malignant neoplasm of colon (principal); Z80.0 Family history of malignant neoplasm of digestive organs; K64.8 Other hemorrhoids; K52.81 Eosinophilic gastritis or gastroenteritis; K21.9 Gastro-esophageal reflux disease without esophagitis; D12.2 Benign neoplasm of ascending colon; D12.3 Benign neoplasm of transverse colon
CPT/HCPCS: 45385; 88305; J2003; J2704; J3010